=== PATIENT | female | born 1930 | race Caucasian/White ===

== ENCOUNTER 2017-05-29 21:13 | Inpatient (IN) | payer MEDICARE, OTHER, MEDICAID ==
[~2017-05-29] VITALS: Ht 152.4 cm; Wt 83.9 kg
[2017-05-29] MEDS ORDERED: Ipratropium 0.02% Inh Soln 2.5ml UD HHN ONE (21:15)
[2017-05-29] MEDS ORDERED: Albuterol ud Inhalation HHN ONE (21:15)
[2017-05-29] MEDS ORDERED: Morphine Sulfate 4mg/ml Inj IVP ONE (21:15)
[2017-05-29] MEDS ORDERED: ABILIFY2 MG ORAL (21:26)
[2017-05-29] MEDS ORDERED: AMLODIPINE BESY10 MG ORAL (21:26)
[2017-05-29] MEDS ORDERED: ASPIR 8181 MG ORAL (21:27)
[2017-05-29] MEDS ORDERED: BENZONATATE100 MG ORAL (21:27)
[2017-05-29] MEDS ORDERED: CYMBALTA60 MG ORAL (21:27)
--- NOTE | 2017-05-29 21:27 | Emergency Room Report ---
History of Present Illness General Chief Complaint: Upper Respiratory Illness Source: Patient, EMS Present Illness HPI Patient presents with chest pain and cough. Has had intermittent pain since [place]. She rates the pain at 10/10. Left-sided and pleuritic. The cough is fairly severe and she has shortness of breath with this. Cough not productive. No use of inhalers. Paramedics transported the patient. She had an Accu-Chek of [phone]. Also her EKG was sinus rhythm without any injury. Patient post cardiac stent. H/O diabetes. H/O HTN. Chronic edema of legs. Allergies: Coded Allergies: PENICILLINS (Verified Allergy, Unknown, 05/29/17) SULFA (SULFONAMIDE ANTIBIOTICS) (Verified Allergy, Unknown, 05/29/17) Patient History Limited by: medical condition Past Medical History: see triage record Past Surgical History: PTCA Social History Narrative [place] - assisted living Now: No Reviewed Nursing Documentation: PMH: Agreed, PSxH: Agreed Nursing Documentation-PMH Hx Cardiac Problems: Yes - Stent Hx Hypertension: Yes Hx Diabetes: Yes Review of Systems All Other Systems: limited Physical Exam Vital Signs Date Time Temp Pulse Resp B/P (MAP) Pulse Ox O2 Delivery O2 Flow Rate FiO2 05/29/17 21:07 98.1 82 16 190/72 97 Room Air Sp02 EP Interpretation: reviewed, normal General Appearance: well appearing, no apparent distress, GCS 15 Head: normocephalic Eyes: bilateral eye normal inspection, bilateral eye PERRL ENT: moist mucus membranes Neck: supple Respiratory: lungs clear, normal breath sounds, other - anterior chest wall pain Cardiovascular #1: regular rate, rhythm, edema - brawny Cardiovascular #2: 2+ radial (R) Gastrointestinal: normal inspection, normal bowel sounds, non tender, no mass, non-distended Musculoskeletal: back normal, gait/station normal, normal range of motion Neurologic: alert, oriented x3 Skin: normal inspection, warm/dry Medical Decision Making Diagnostic Impression: Primary Impression: ACS (acute coronary syndrome) Additional Impressions: Bronchitis Peripheral vascular disease ER Course Patient presents with pleuritic chest pain and cough. Differential includes acute myocardial infarction, acute coronary syndrome, pleurisy, pneumonia, bronchitis, pulmonary embolism amongst others. Evaluation will be with EKG, chest x-ray and labs. She is significant edema in her lower extremities and non invasive vascular studies will be performed. She'll be treated with albuterol and Atrovent. She also received some mild IV hydration. Based on x- ray antibiotics may be started. Also be treated with morphine for pain. EKG without injury. CXR increased domínguez with increase RLL. Labs with elevated BNP. WBC ULN. Breathing treatments with help. Antibiotics begun. Patient improved with treatment. However, due to high risk for CAD/ACS, patient admitted to telemetry, Dr. Bernal. Laboratory Tests Test 05/29/17 21:46 05/29/17 22:50 05/30/17 10:50 05/30/17 16:00 White Blood Count 10.1 K/UL (4.8-10.8) 9.8 K/UL (4.8-10.8) Red Blood Count 3.77 M/UL (4.20-5.40) L 3.48 M/UL (4.20-5.40) L Hemoglobin 11.4 G/DL (12.0-16.0) L 10.5 G/DL (12.0-16.0) L Hematocrit 34.7 % (37.0-47.0) L 32.1 % (37.0-47.0) L Mean Corpuscular Volume 92 FL (80-99) 92 FL (80-99) Mean Corpuscular Hemoglobin 30.4 PG (27.0-31.0) 30.3 PG (27.0-31.0) Mean Corpuscular Hemoglobin Concent 33.0 G/DL (32.0-36.0) 32.8 G/DL (32.0-36.0) Red Cell Distribution Width 13.6 % (11.6-14.8) 14.0 % (11.6-14.8) Platelet Count 272 K/UL (150-450) 232 K/UL (150-450) Mean Platelet Volume 7.3 FL (6.5-10.1) 6.9 FL (6.5-10.1) Neutrophils (%) (Auto) 55.7 % (45.0-75.0) 69.4 % (45.0-75.0) Lymphocytes (%) (Auto) 26.5 % (20.0-45.0) 14.7 % (20.0-45.0) L Monocytes (%) (Auto) 12.4 % (1.0-10.0) H 11.8 % (1.0-10.0) H Eosinophils (%) (Auto) 4.3 % (0.0-3.0) H 3.3 % (0.0-3.0) H Basophils (%) (Auto) 1.1 % (0.0-2.0) 0.8 % (0.0-2.0) Prothrombin Time 9.8 SEC (9.30-11.50) Prothrombin Time INR 0.9 (0.9-1.1) PTT 29 SEC (23-33) Sodium Level 139 MMOL/L (136-145) 138 MMOL/L (136-145) Potassium Level 3.7 MMOL/L (3.5-5.1) 3.6 MMOL/L (3.5-5.1) Chloride Level 103 MMOL/L (98-107) 103 MMOL/L (98-107) Carbon Dioxide Level 26 MMOL/L (21-32) 27 MMOL/L (21-32) Anion Gap 10 mmol/L (5-15) 8 mmol/L (5-15) Blood Urea Nitrogen 20 mg/dL (7-18) H 16 mg/dL (7-18) Creatinine 1.1 MG/DL (0.55-1.30) 0.9 MG/DL (0.55-1.30) Estimate Glomerular Filtration Rate mL/min (>60) mL/min (>60) Glucose Level 158 MG/DL (74-106) H 149 MG/DL (74-106) H Lactic Acid Level 1.60 mmol/L (0.66-2.22) Calcium Level 8.3 MG/DL (8.5-10.1) L 8.5 MG/DL (8.5-10.1) Total Bilirubin 0.3 MG/DL (0.2-1.0) Aspartate Amino Transferase (AST) 22 U/L (15-37) Alanine Aminotransferase (ALT) 24 U/L (12-78) Alkaline Phosphatase 89 U/L (46-116) Total Creatine Kinase 33 U/L (26-308) Troponin I 0.014 ng/mL (0.000-0.056) 0.044 ng/mL (0.000-0.056) Pro-B-Type Natriuretic Peptide 1685 pg/mL (0-125) H Total Protein 6.3 G/DL (6.4-8.2) L Albumin 3.0 G/DL (3.4-5.0) L Globulin 3.3 g/dL Albumin/Globulin Ratio 0.9 (1.0-2.7) L Urine Color Pale yellow Urine Appearance Clear Urine pH 6 (4.5-8.0) Urine Specific [place] 1.010 (1.005-1.035) Urine Protein 3+ (NEGATIVE) H Urine Glucose (UA) Negative (NEGATIVE) Urine Ketones Negative (NEGATIVE) Urine Occult Blood Negative (NEGATIVE) Urine Nitrite Negative (NEGATIVE) Urine Bilirubin Negative (NEGATIVE) Urine Urobilinogen Normal MG/DL (0.0-1.0) Urine Leukocyte Esterase Negative (NEGATIVE) Urine RBC 0-2 /HPF (0 - 2) Urine WBC 0-2 /HPF (0 - 2) Urine Squamous Epithelial Cells Few /LPF (NONE/OCC) Urine Bacteria None /HPF (NONE) Urine Random Creatinine Pending Urine Random Microalbumin Pending Urine Random Total Protein 56 MG/DL (< 11.9) H Urine Random Sodium 133 MEQ/L (20-110) H Urine Creatinine 46.1 MG/DL (30.0-125.0) Urine Microalbumin/Creatinine Ratio Pending Microbiology Date/Time Source Procedure Growth Status 05/29/17 21:46 Nasal Nares Influenza Types A,B Antigen (RUDDY) - Final Complete EKG Diagnostic Results Rate: normal Rhythm: NSR ST Segments: no acute changes Rhythm Strip Diag. Results EP Interpretation: yes Rhythm: NSR, no PVC's, no ectopy Chest X-Ray Diagnostic Results Chest X-Ray Diagnostic Results : Chest X-Ray Ordered: Yes # of Views/Limited/Complete: 1 View Indication: Chest Pain EP Interpretation: Yes Interpretation: no effusion, no pneumothorax, other - increased domínguez, possible RLL infiltrate Impression: Other Electronically Signed by: Minh Goodman MD Status: improved Disposition: ADMITTED INPATIENT Condition: Serious Minh Goodman M.D. May 29, 2017 21:27
[2017-05-29] MEDS ORDERED: FLUTICASONE PRO16 G1 NASAL (21:28)
[2017-05-29] MEDS ORDERED: LASIX20 M1 ORAL (21:29)
[2017-05-29] MEDS ORDERED: GABAPENTIN100 MG ORAL ×2 (21:30)
[2017-05-29] MEDS ORDERED: JANUVIA25 MG ORAL (21:31)
[2017-05-29] MEDS ORDERED: HYDRALAZINE HCL50 MG ORAL (21:31)
[2017-05-29] MEDS ORDERED: MELATONIN3 MG ORAL (21:32)
[2017-05-29] MEDS ORDERED: METOPROLOL SUCC25 MG ORAL (21:32)
[2017-05-29] MEDS ORDERED: MULTIVITAMINS1 EAC2 ORAL (21:32)
[2017-05-29] MEDS ORDERED: POTASSIUM CHLO20 ME2 ORAL (21:34)
[2017-05-29] MEDS ORDERED: PATANOL1 DROP OP (21:34)
[2017-05-29] MEDS ORDERED: PRIMIDONE250 MG ORAL (21:34)
[2017-05-29] MEDS ORDERED: CRESTOR40 MG ORAL (21:35)
[2017-05-29] MEDS ORDERED: ZANTAC150 MG ORAL (21:35)
[2017-05-29] MEDS ORDERED: MICARDIS40 MG ORAL (21:36)
[2017-05-29] MEDS ORDERED: TRAMADOL HCL50 MG ORAL (21:36)
[2017-05-29] MEDS ORDERED: VITAMIN D250000 UNI1 ORAL (21:37)
[2017-05-29] MEDS ORDERED: ZINC SULFATE220 M1 ORAL (21:38)
[2017-05-29] MEDS ORDERED: VITAMIN C500 M1 ORAL (21:38)
[2017-05-29] MEDS ORDERED: DOC-Q-LACE100 M1 ORAL (21:39)
[2017-05-29] MEDS ORDERED: HYDROXYZINE HCL50 M1 PO (21:40)
[2017-05-29] MEDS ORDERED: MAPAP325 M1 PO (21:40)
[2017-05-29] MEDS ORDERED: [UNRECOGNIZED DRUG - OTHER] IR (21:41)
[2017-05-29] MEDS ORDERED: ZOLPIDEM TARTRAT5 MG ORAL (21:42)
[2017-05-29] MEDS ORDERED: OXYCODONE-ACET1 EAC3 ORAL (21:42)
[2017-05-29] MEDS ORDERED: Cefepime HCl 1 GM in D5W 55 ML IVPB ONE (22:00)
[2017-05-29] MEDS ORDERED: Cefepime 1gm vial ONE (22:03)
[2017-05-29 22:57] LABS: BASOPHILS % (AUTO) 1.1 % (0.0-2.0); EOSINOPHILS % (AUTO) 4.3 % (0.0-3.0); HEMATOCRIT 34.7 % (37.0-47.0); HEMOGLOBIN 11.4 G/DL (12.0-16.0); LYMPHOCYTES % (AUTO) 26.5 % (20.0-45.0); MEAN CORPUSCULAR VOLUME 92 FL (80-99); MONOCYTES % (AUTO) 12.4 % (1.0-10.0); NEUTROPHILS % (AUTO) 55.7 % (45.0-75.0); PLATELET COUNT 272 K/UL (150-450); RED BLOOD COUNT 3.77 M/UL (4.20-5.40); RED CELL DISTRIBUTION WIDTH 13.6 % (11.6-14.8); WHITE BLOOD COUNT 10.1 K/UL (4.8-10.8)
[2017-05-29 23:03] LABS: ANION GAP 10 mmol/L (5-15); BLOOD UREA NITROGEN 20 mg/dL (7-18); CALCIUM 8.3 MG/DL (8.5-10.1); CARBON DIOXIDE 26 MMOL/L (21-32); CHLORIDE 103 MMOL/L (98-107); CREATININE 1.1 MG/DL (0.55-1.30); POTASSIUM 3.7 MMOL/L (3.5-5.1); SODIUM 139 MMOL/L (136-145)
[2017-05-29 23:04] LABS: INR 0.9 (0.9-1.1)
[2017-05-29 23:14] LABS: APPEARANCE,URINE CLEAR; BILIRUBIN, URINE NEGATIVE (NEGATIVE); COLOR,URINE PALE YELLOW; GLUCOSE, URINE (UA) NEGATIVE (NEGATIVE); KETONES,URINE NEGATIVE (NEGATIVE); LEUKOCYTE ESTERASE ,URINE NEGATIVE (NEGATIVE); NITRITE,URINE NEGATIVE (NEGATIVE); PH,URINE 6 (4.5-8.0); PROTEIN,URINE 3+ (NEGATIVE); UROBILINOGEN,URINE NORMAL MG/DL (0.0-1.0)
[2017-05-29 23:16] LABS: ALANINE AMINOTRANSFERASE 24 U/L (12-78); ALBUMIN/GLOBULIN RATIO 0.9 (1.0-2.7); ALKALINE PHOSPHATASE 89 U/L (46-116); ASPARTATE AMINO TRANSFERASE 22 U/L (15-37); BILIRUBIN,TOTAL 0.3 MG/DL (0.2-1.0); CREATINE KINASE 33 U/L (26-308)
[2017-05-29 23:32] VITALS: BP 142/89
[2017-05-30] VITALS: BP 169/65
[2017-05-30] MEDS ORDERED: oxyCODONE HCL/Acetaminophen 5/325mg ORAL PRN ×2 (02:30→06:45)
[2017-05-30] MEDS ORDERED: Zolpidem 5mg tab ORAL PRN (02:30)
[2017-05-30] MEDS ORDERED: traMADol 50mg tab ORAL PRN (02:30)
[2017-05-30 04:00] VITALS: BP 162/61
[2017-05-30] MEDS: HydrALAZINE 50mg tab ORAL SCH ×3 (06:48→22:39)
[2017-05-30 08:00] VITALS: BP 152/73
[2017-05-30] MEDS: Heparin 5000 units/ml inj SUBQ SCH ×2 (08:39→22:42)
[2017-05-30] MEDS: Zinc Sulfate 220mg cap ORAL SCH (08:40)
[2017-05-30] MEDS: Benzonatate 100mg Perles ORAL SCH ×3 (08:40→17:24)
[2017-05-30] MEDS: Aspirin EC 81mg tab ORAL SCH (08:40)
[2017-05-30] MEDS: Ascorbic Acid 500mg tab ORAL SCH (08:41)
[2017-05-30] MEDS: sitaGLIPtin 25mg tab ORAL SCH (08:42)
[2017-05-30] MEDS: ARIPiprazole 2mg tab ORAL SCH (08:42)
[2017-05-30] MEDS: DULoxetine 30mg cap ORAL SCH (08:44)
[2017-05-30] MEDS: Docusate 100mg cap ORAL SCH ×2 (08:45→17:24)
[2017-05-30] MEDS: Primidone 250mg tab ORAL SCH ×3 (08:45→17:24)
[2017-05-30] MEDS ORDERED: Metoprolol Succinate XL 25mg tab ORAL SCH (09:00)
[2017-05-30] MEDS: Flonase Nasal Inhaler 16gm NASAL SCH (09:51)
--- NOTE | 2017-05-30 10:38 | Diagnostic Imaging Report ---
Indication: Cough Comparison: None A single view chest radiograph was obtained. Findings: There may be mild interstitial edema/vascular congestion. Please correlate clinically The heart is enlarged. The aorta is mildly enlarged consistent with atherosclerotic vascular disease. The bones are osteopenic. Impression: Probable mild interstitial edema. Please correlate clinically
--- NOTE | 2017-05-30 11:45 | Consultation ---
History of Present Illness General Date patient seen: May 30, 2017 Chief Complaint: Upper Respiratory Illness Present Illness HPI 86 year old female with hx of HTN, DM, morbid obesity, living in an assisted living presented with CC of chest pain and cough. She also had chest pain She rates the pain at 10/10. Left-sided and pleuritic. The cough is fairly severe and she has shortness of breath as well. She doesn't recall having flu- like symptoms. She thinks she has been sick for a few weeks. Her initial cxr showed mild pulmonary edema. she is admitted to telemetry for further evaluation. Allergies: Coded Allergies: PENICILLINS (Verified Allergy, Unknown, 05/29/17) SULFA (SULFONAMIDE ANTIBIOTICS) (Verified Allergy, Unknown, 05/29/17) Medication History Scheduled Amlodipine Besylate* (Amlodipine Besylate*), 10 MG ORAL DAILY, (Reported) Aripiprazole* (Abilify*), 2 MG ORAL DAILY, (Reported) Ascorbic Acid* (Vitamin C*), 500 MG ORAL DAILY, (Reported) Aspirin* (Aspir 81*), 81 MG ORAL DAILY, (Reported) Benzonatate* (Benzonatate*), 100 MG ORAL THREE TIMES A DAY, (Reported) Docusate Sodium (Doc-Q-Lace), 100 MG ORAL BID, (Reported) Duloxetine Hcl* (Cymbalta*), 60 MG ORAL DAILY, (Reported) Ergocalciferol (Vitamin D2)* (Vitamin D*), 50,000 UNIT ORAL ONCE A WEEK, ( Reported) Fluticasone Propionate* (Fluticasone Propionate*), 1 SPRAY NASAL DAILY, ( Reported) Furosemide* (Lasix*), 20 MG ORAL TWICE A DAY, (Reported) Gabapentin* (Gabapentin*), 100 MG ORAL DAILY, (Reported) Gabapentin* (Gabapentin*), 200 MG ORAL BEDTIME, (Reported) Hydralazine Hcl* (Hydralazine Hcl*), 50 MG ORAL EVERY 8 HOURS, (Reported) Metoprolol Succinate* (Metoprolol Succinate*), 25 MG ORAL DAILY, (Reported) Multivitamins* (Multivitamins*), 1 TAB ORAL DAILY, (Reported) Potassium Chloride (Potassium Chloride), 20 MEQ ORAL DAILY, (Reported) Primidone* (Mysoline*), 250 MG ORAL THREE TIMES A DAY, (Reported) Ranitidine Hcl* (Zantac*), 150 MG ORAL DAILY, (Reported) Rosuvastatin Calcium* (Crestor*), 40 MG ORAL DAILY, (Reported) Sitagliptin* (Januvia*), 50 MG ORAL DAILY, (Reported) Telmisartan (Micardis), 40 MG ORAL DAILY, (Reported) Zinc Sulfate (Zinc Sulfate*), 220 MG ORAL DAILY, (Reported) Scheduled PRN Melatonin (Melatonin), 3 MG ORAL BEDTIME PRN for Insomnia, (Reported) Oxycodone Hcl/Acetaminophen 5-325* (Oxycodone-Acetaminophen 5-325*), 1 TAB ORAL BID PRN for For Pain, (Reported) Tramadol Hcl* (Ultram*), 50 MG ORAL Q6H PRN for For Pain, (Reported) Zolpidem Tartrate* (Zolpidem Tartrate*), 5 MG ORAL BEDTIME PRN for Insomnia, ( Reported) Miscellaneous Medications Acetaminophen (Mapap), 325 MG PO, (Reported) Hydroxyzine Hcl (Hydroxyzine Hcl), 50 MG PO, (Reported) Neomy Sulf/Polymyxin B Sulfate (Neomy-Polymyxin B 40 Mg/Ml Amp), 1 ML IR, ( Reported) Olopatadine (Patanol), 1 DROP OP, (Reported) Patient History Healthcare decision maker Resuscitation status Advanced Directive on File No Past Medical/Surgical History Past Medical/Surgical History: (1) HTN (hypertension) (2) Diabetes mellitus (3) Obesity (BMI 30-39.9) Review of Systems Respiratory: Reports: shortness of breath, wheezing All Other Systems: negative except mentioned in HPI Physical Exam General Appearance: morbidly obese Lines, tubes and drains: peripheral HEENT: normocephalic, atraumatic Neck: non-tender, normal alignment Respiratory/Chest: chest wall non-tender, rhonchi - left, rhonchi - right Breasts: no masses Cardiovascular/Chest: regular rhythm Abdomen: normal bowel sounds, non tender, hyperactive bowel sounds Extremities: normal range of motion Skin Exam: normal pigmentation Last 24 Hour Vital Signs Date Time Temp Pulse Resp B/P (MAP) Pulse Ox O2 Delivery O2 Flow Rate FiO2 05/30/17 08:44 78 180/61 05/30/17 08:43 180/61 05/30/17 08:41 78 180/61 05/30/17 06:48 162/61 05/30/17 04:00 98.1 66 20 162/61 95 Room Air 05/30/17 04:00 73 05/30/17 00:00 97.0 67 20 169/65 96 Room Air 05/30/17 00:00 74 05/29/17 23:38 98.1 88 20 142/89 99 Room Air 21 05/29/17 23:32 98.1 88 20 142/89 99 Room Air 21 05/29/17 22:01 68 20 99 Room Air 21 05/29/17 21:42 78 18 94 Room Air 21 05/29/17 21:42 78 18 Room Air 21 05/29/17 21:42 21 05/29/17 21:41 82 16 Room Air 05/29/17 21:07 98.1 82 16 190/72 97 Room Air Intake and Output 05/29/17 05/30/17 19:00 07:00 Output Total 3 ml Balance -3 ml Output Urine Total 3 ml # Bowel Movements 1 Laboratory Tests Test 05/29/17 21:46 05/29/17 22:50 White Blood Count 10.1 K/UL (4.8-10.8) Red Blood Count 3.77 M/UL (4.20-5.40) L Hemoglobin 11.4 G/DL (12.0-16.0) L Hematocrit 34.7 % (37.0-47.0) L Mean Corpuscular Volume 92 FL (80-99) Mean Corpuscular Hemoglobin 30.4 PG (27.0-31.0) Mean Corpuscular Hemoglobin Concent 33.0 G/DL (32.0-36.0) Red Cell Distribution Width 13.6 % (11.6-14.8) Platelet Count 272 K/UL (150-450) Mean Platelet Volume 7.3 FL (6.5-10.1) Neutrophils (%) (Auto) 55.7 % (45.0-75.0) Lymphocytes (%) (Auto) 26.5 % (20.0-45.0) Monocytes (%) (Auto) 12.4 % (1.0-10.0) H Eosinophils (%) (Auto) 4.3 % (0.0-3.0) H Basophils (%) (Auto) 1.1 % (0.0-2.0) Prothrombin Time 9.8 SEC (9.30-11.50) Prothromb Time International Ratio 0.9 (0.9-1.1) Activated Partial Thromboplast Time 29 SEC (23-33) Sodium Level 139 MMOL/L (136-145) Potassium Level 3.7 MMOL/L (3.5-5.1) Chloride Level 103 MMOL/L (98-107) Carbon Dioxide Level 26 MMOL/L (21-32) Anion Gap 10 mmol/L (5-15) Blood Urea Nitrogen 20 mg/dL (7-18) H Creatinine 1.1 MG/DL (0.55-1.30) Estimat Glomerular Filtration Rate mL/min (>60) Glucose Level 158 MG/DL (74-106) H Lactic Acid Level 1.60 mmol/L (0.66-2.22) Calcium Level 8.3 MG/DL (8.5-10.1) L Total Bilirubin 0.3 MG/DL (0.2-1.0) Aspartate Amino Transf (AST/SGOT) 22 U/L (15-37) Alanine Aminotransferase (ALT/SGPT) 24 U/L (12-78) Alkaline Phosphatase 89 U/L (46-116) Total Creatine Kinase 33 U/L (26-308) Troponin I 0.014 ng/mL (0.000-0.056) Pro-B-Type Natriuretic Peptide 1685 pg/mL (0-125) H Total Protein 6.3 G/DL (6.4-8.2) L Albumin 3.0 G/DL (3.4-5.0) L Globulin 3.3 g/dL Albumin/Globulin Ratio 0.9 (1.0-2.7) L Urine Color Pale yellow Urine Appearance Clear Urine pH 6 (4.5-8.0) Urine Specific [place] 1.010 (1.005-1.035) Urine Protein 3+ (NEGATIVE) H Urine Glucose (UA) Negative (NEGATIVE) Urine Ketones Negative (NEGATIVE) Urine Occult Blood Negative (NEGATIVE) Urine Nitrite Negative (NEGATIVE) Urine Bilirubin Negative (NEGATIVE) Urine Urobilinogen Normal MG/DL (0.0-1.0) Urine Leukocyte Esterase Negative (NEGATIVE) Urine RBC 0-2 /HPF (0 - 2) Urine WBC 0-2 /HPF (0 - 2) Urine Squamous Epithelial Cells Few /LPF (NONE/OCC) Urine Bacteria None /HPF (NONE) Microbiology Date/Time Source Procedure Growth Status 05/29/17 21:46 Nasal Nares Influenza Types A,B Antigen (RUDDY) - Final Complete Height (Feet): 5 Height (Inches): 0.00 Weight (Pounds): 185 Medications Current Medications Medications (Trade) Dose Ordered Sig/Adam Route PRN Reason Start Time Stop Time Status Last Admin Dose Admin Acetaminophen (Tylenol) 325 mg Q4HR PRN ORAL Fever/Headache/Mild Pain 05/30/17 02:30 06/29/17 02:29 Amlodipine Besylate (Norvasc) 10 mg DAILY ORAL 05/30/17 09:00 06/29/17 08:59 05/30/17 08:44 Aripiprazole (Abilify) 2 mg DAILY ORAL 05/30/17 09:00 06/29/17 08:59 05/30/17 08:42 Ascorbic Acid (Vitamin C) 500 mg DAILY ORAL 05/30/17 09:00 06/29/17 08:59 05/30/17 08:41 Aspirin (Ecotrin) 81 mg DAILY ORAL 05/30/17 09:00 06/29/17 08:59 05/30/17 08:40 Benzonatate (Tessalon Perles) 100 mg THREE TIMES A DAY ORAL 05/30/17 09:00 06/29/17 08:59 05/30/17 08:40 Docusate Sodium (Colace) 100 mg BID ORAL 05/30/17 09:00 06/29/17 08:59 05/30/17 08:45 Duloxetine HCl (Cymbalta) 60 mg DAILY ORAL 05/30/17 09:00 06/29/17 08:59 05/30/17 08:44 Ergocalciferol (Drisdol) 1.25 intlu ONCE A WEEK ORAL 05/30/17 02:30 06/29/17 02:29 UNV Fluticasone Propionate (Flonase) 1 spray DAILY NASAL 05/30/17 09:00 06/29/17 08:59 05/30/17 09:51 Furosemide (Lasix) 20 mg TWICE A DAY ORAL 05/30/17 09:00 06/29/17 08:59 05/30/17 08:41 Gabapentin (Neurontin) 100 mg DAILY ORAL 05/30/17 09:00 06/29/17 08:59 05/30/17 08:41 Gabapentin (Neurontin) 200 mg BEDTIME ORAL 05/30/17 21:00 06/29/17 20:59 Heparin Sodium (Porcine) (Heparin 5000 units/ml) 5,000 units EVERY 12 HOURS SUBQ 05/30/17 09:00 06/29/17 08:59 05/30/17 08:39 Hydralazine HCl (Apresoline) 50 mg EVERY 8 HOURS ORAL 05/30/17 06:00 06/29/17 05:59 05/30/17 08:43 Metoprolol Succinate (Toprol XL) 25 mg DAILY ORAL 05/30/17 09:00 06/29/17 08:59 05/30/17 08:41 Multivitamins (Multivitamins) 1 tab DAILY ORAL 05/30/17 09:00 06/29/17 08:59 05/30/17 08:43 Oxycodone/ Acetaminophen (Percocet 5-325) 1 tab BID PRN ORAL For Pain 05/30/17 06:45 06/06/17 06:44 Primidone (Mysoline) 250 mg THREE TIMES A DAY ORAL 05/30/17 09:00 06/29/17 08:59 05/30/17 08:45 Sitagliptin Phosphate (Januvia) 50 mg DAILY ORAL 05/30/17 09:00 06/29/17 08:59 05/30/17 08:42 Tramadol HCl (Ultram) 50 mg Q6H PRN ORAL For Pain 05/30/17 08:30 06/06/17 08:29 Zinc Sulfate (Zinc Sulfate) 220 mg DAILY ORAL 05/30/17 09:00 06/29/17 08:59 05/30/17 08:40 Zolpidem Tartrate (Ambien) 5 mg BEDTIME PRN ORAL Insomnia 05/30/17 02:30 06/06/17 02:29 Assessment/Plan Problem List: (1) ACS (acute coronary syndrome) ICD Codes: I24.9 - Acute ischemic heart disease, unspecified SNOMED: 045657704 (2) Bronchitis ICD Codes: J40 - Bronchitis, not specified as acute or chronic SNOMED: 41992269 (3) HTN (hypertension) ICD Codes: I10 - Essential (primary) hypertension SNOMED: 84430724 (4) Obesity (BMI 30-39.9) ICD Codes: E66.9 - Obesity, unspecified SNOMED: 523283982, 130378866 (5) At high risk for aspiration ICD Codes: Z91.89 - Other specified personal risk factors, not elsewhere classified SNOMED: 664564509 (6) Diabetes mellitus ICD Codes: E11.9 - Type 2 diabetes mellitus without complications SNOMED: 72483346 Assessment/Plan respiratory treatment IV abx check electrolytes check echo venous doppler of legs aspiration evaluation. FERNANDA MANNING May 30, 2017 11:45
[2017-05-30 11:49] LABS: BASOPHILS % (AUTO) 0.8 % (0.0-2.0); EOSINOPHILS % (AUTO) 3.3 % (0.0-3.0); HEMATOCRIT 32.1 % (37.0-47.0); HEMOGLOBIN 10.5 G/DL (12.0-16.0); LYMPHOCYTES % (AUTO) 14.7 % (20.0-45.0); MEAN CORPUSCULAR VOLUME 92 FL (80-99); MONOCYTES % (AUTO) 11.8 % (1.0-10.0); NEUTROPHILS % (AUTO) 69.4 % (45.0-75.0); PLATELET COUNT 232 K/UL (150-450); RED BLOOD COUNT 3.48 M/UL (4.20-5.40); WHITE BLOOD COUNT 9.8 K/UL (4.8-10.8)
[2017-05-30 12:00] VITALS: BP 160/95
[2017-05-30 12:06] LABS: ANION GAP 8 mmol/L (5-15); BLOOD UREA NITROGEN 16 mg/dL (7-18); CALCIUM 8.5 MG/DL (8.5-10.1); CARBON DIOXIDE 27 MMOL/L (21-32); CHLORIDE 103 MMOL/L (98-107); CREATININE 0.9 MG/DL (0.55-1.30); POTASSIUM 3.6 MMOL/L (3.5-5.1); SODIUM 138 MMOL/L (136-145)
--- NOTE | 2017-05-30 14:01 | Cardiology Progress Note ---
Assessment/Plan Assessment/Plan The patient is seen and examined, full consult note is dictated. Objective Last 24 Hour Vital Signs Date Time Temp Pulse Resp B/P (MAP) Pulse Ox O2 Delivery O2 Flow Rate FiO2 05/30/17 12:00 98.1 75 20 160/95 99 Room Air 05/30/17 08:44 78 180/61 05/30/17 08:43 180/61 05/30/17 08:41 78 180/61 05/30/17 08:00 98.1 74 19 152/73 98 Room Air 05/30/17 06:48 162/61 05/30/17 04:00 98.1 66 20 162/61 95 Room Air 05/30/17 04:00 73 05/30/17 00:00 97.0 67 20 169/65 96 Room Air 05/30/17 00:00 74 05/29/17 23:38 98.1 88 20 142/89 99 Room Air 21 05/29/17 23:32 98.1 88 20 142/89 99 Room Air 21 05/29/17 22:01 68 20 99 Room Air 21 05/29/17 21:42 78 18 94 Room Air 21 05/29/17 21:42 78 18 Room Air 21 05/29/17 21:42 21 05/29/17 21:41 82 16 Room Air 05/29/17 21:07 98.1 82 16 190/72 97 Room Air Intake and Output 05/29/17 05/30/17 19:00 07:00 Output Total 3 ml Balance -3 ml Output Urine Total 3 ml # Bowel Movements 1 Laboratory Tests Test 05/29/17 21:46 05/29/17 22:50 05/30/17 10:50 White Blood Count 10.1 K/UL (4.8-10.8) 9.8 K/UL (4.8-10.8) Red Blood Count 3.77 M/UL (4.20-5.40) L 3.48 M/UL (4.20-5.40) L Hemoglobin 11.4 G/DL (12.0-16.0) L 10.5 G/DL (12.0-16.0) L Hematocrit 34.7 % (37.0-47.0) L 32.1 % (37.0-47.0) L Mean Corpuscular Volume 92 FL (80-99) 92 FL (80-99) Mean Corpuscular Hemoglobin 30.4 PG (27.0-31.0) 30.3 PG (27.0-31.0) Mean Corpuscular Hemoglobin Concent 33.0 G/DL (32.0-36.0) 32.8 G/DL (32.0-36.0) Red Cell Distribution Width 13.6 % (11.6-14.8) 14.0 % (11.6-14.8) Platelet Count 272 K/UL (150-450) 232 K/UL (150-450) Mean Platelet Volume 7.3 FL (6.5-10.1) 6.9 FL (6.5-10.1) Neutrophils (%) (Auto) 55.7 % (45.0-75.0) 69.4 % (45.0-75.0) Lymphocytes (%) (Auto) 26.5 % (20.0-45.0) 14.7 % (20.0-45.0) L Monocytes (%) (Auto) 12.4 % (1.0-10.0) H 11.8 % (1.0-10.0) H Eosinophils (%) (Auto) 4.3 % (0.0-3.0) H 3.3 % (0.0-3.0) H Basophils (%) (Auto) 1.1 % (0.0-2.0) 0.8 % (0.0-2.0) Prothrombin Time 9.8 SEC (9.30-11.50) Prothromb Time International Ratio 0.9 (0.9-1.1) Activated Partial Thromboplast Time 29 SEC (23-33) Sodium Level 139 MMOL/L (136-145) 138 MMOL/L (136-145) Potassium Level 3.7 MMOL/L (3.5-5.1) 3.6 MMOL/L (3.5-5.1) Chloride Level 103 MMOL/L (98-107) 103 MMOL/L (98-107) Carbon Dioxide Level 26 MMOL/L (21-32) 27 MMOL/L (21-32) Anion Gap 10 mmol/L (5-15) 8 mmol/L (5-15) Blood Urea Nitrogen 20 mg/dL (7-18) H 16 mg/dL (7-18) Creatinine 1.1 MG/DL (0.55-1.30) 0.9 MG/DL (0.55-1.30) Estimat Glomerular Filtration Rate mL/min (>60) mL/min (>60) Glucose Level 158 MG/DL (74-106) H 149 MG/DL (74-106) H Lactic Acid Level 1.60 mmol/L (0.66-2.22) Calcium Level 8.3 MG/DL (8.5-10.1) L 8.5 MG/DL (8.5-10.1) Total Bilirubin 0.3 MG/DL (0.2-1.0) Aspartate Amino Transf (AST/SGOT) 22 U/L (15-37) Alanine Aminotransferase (ALT/SGPT) 24 U/L (12-78) Alkaline Phosphatase 89 U/L (46-116) Total Creatine Kinase 33 U/L (26-308) Troponin I 0.014 ng/mL (0.000-0.056) Pro-B-Type Natriuretic Peptide 1685 pg/mL (0-125) H Total Protein 6.3 G/DL (6.4-8.2) L Albumin 3.0 G/DL (3.4-5.0) L Globulin 3.3 g/dL Albumin/Globulin Ratio 0.9 (1.0-2.7) L Urine Color Pale yellow Urine Appearance Clear Urine pH 6 (4.5-8.0) Urine Specific [place] 1.010 (1.005-1.035) Urine Protein 3+ (NEGATIVE) H Urine Glucose (UA) Negative (NEGATIVE) Urine Ketones Negative (NEGATIVE) Urine Occult Blood Negative (NEGATIVE) Urine Nitrite Negative (NEGATIVE) Urine Bilirubin Negative (NEGATIVE) Urine Urobilinogen Normal MG/DL (0.0-1.0) Urine Leukocyte Esterase Negative (NEGATIVE) Urine RBC 0-2 /HPF (0 - 2) Urine WBC 0-2 /HPF (0 - 2) Urine Squamous Epithelial Cells Few /LPF (NONE/OCC) Urine Bacteria None /HPF (NONE) Microbiology Date/Time Source Procedure Growth Status 05/29/17 21:46 Nasal Nares Influenza Types A,B Antigen (RUDDY) - Final Complete LEANN DAVIS May 30, 2017 14:01
--- NOTE | 2017-05-30 15:04 | General Progress Note ---
Progress Note Progress Note pt seen and examined full consult will be dictated MARLEE FINLEY May 30, 2017 15:04
[2017-05-30 16:00] VITALS: BP 158/83
[2017-05-30] MEDS: Vancomycin 1250mg/D5W 250ml 250 ML IVPB SCH (17:23)
--- NOTE | 2017-05-30 17:32 | Consultation ---
Consult Note Assessment/Plan Podiatry Consult dictated A/ 1) Left ankle pain 2) Venous insufficiency with venous stasis changes 3) DM 4) Obesity P/ 1) Venous ultz reviewed 2) Will order arterial ultz and left ankle x-ray 3) No wound care indicated at this time 4) Will follow Thank you Anirudh Fitch DPM May 30, 2017 17:32
--- NOTE | 2017-05-30 19:21 | Cardiology Report ---
APPROVED REPORT EXAM: Two-dimensional and M-mode echocardiogram with Doppler and color Doppler. INDICATION Left ventricular function M-Mode DIMENSIONS IVSd1.0 (0.7-1.1cm)Left Atrium (MM)5.3 (1.6-4.0cm) LVDd5.1 (3.5-5.6cm)Aortic Root2.7 (2.0-3.7cm) PWd1.0 (0.7-1.1cm)Aortic Cusp Exc.1.1 (1.5-2.0cm) LVDs2.5 (2.5-4.0cm) PWs1.3 cm Technically difficult study due to poor acoustical windows. Normal left ventricular chamber size, systolic function and wall motion. Left ventricular ejection fraction estimated to be 70-75%. No evidence of left ventricular hypertrophy. No evidence of pericardial or pleural effusion. Right cardiac chamber sizes are within normal limits. Moderate left atrial enlargement by 2D. Aortic valve calcification with decreased cusp excursion. Thickened mitral valve leaflets with normal excursion. Mild mitral annulus and aortic root calcification. Pulmonic valve not well visualized. Normal tricuspid valve structure. IVC is normal in size and collapsible with respiration. A color flow and spectral Doppler study was performed and revealed: Mild aortic regurgitation. Peak aortic valve gradient of 53mmHg and a mean of 27 mmHg. Aortic valve area 1.2 cm2 calculated by continuity equation, c/w moderate aortic stenosis. Trace mitral regurgitation. Mitral diastolic velocities suggestpseudo-normal LV physiology c/w diastolic dysfunction grade II. Trace tricuspid regurgitation. Tricuspid systolic velocities suggests peak right ventricular systolic pressure of 31 mmHg Pulmonic regurgitation present.
--- NOTE | 2017-05-30 19:30 | History and Physical Report ---
DATE OF ADMISSION: 05/30/2017 TIME: 1 p.m. CONSULTANTS: 1. Annalise De León M.D. 2. Dr. Caruso. 3. Anirudh Lal D.P.M. CHIEF COMPLAINT: Shortness of breath, coughing for two months, pneumonia, and sepsis. BRIEF HISTORY: The patient is an 86-year-old female from [facility], presented to [facility] with history of two months increased coughing and shortness of breath, was actually better a week ago, but then got worse again. The patient last night came to [facility], diagnosed with pneumonia, sepsis, lower extremity edema, and cellulitis, and admitted to [facility] for further care. Currently, slightly confused in bed, slightly anxious. No complaints. PAST MEDICAL HISTORY: Diabetes, hypertension, obesity, and lower extremity edema. PAST SURGICAL HISTORY: Cardiac stent. MEDICATIONS: Include Drisdol, Neurontin, Norvasc, Abilify, Ecotrin, Tessalon Perles, Colace, Cymbalta, Flonase, Neurontin, Toprol, multivitamin, Januvia, heparin, Percocet, and Tylenol. ALLERGIES: Sulfa and penicillin. SOCIAL HISTORY: No smoking. No alcohol. No intravenous drug abuse. FAMILY HISTORY: Noncontributory. REVIEW OF SYSTEMS: No chest pain. Slightly short of breath. No nausea, vomiting, or diarrhea. PHYSICAL EXAMINATION: GENERAL: Slightly anxious, slightly confused in bed, oriented x2, and in no acute distress. VITAL SIGNS: Temperature is 95, pulse 75, respirations 20, and blood pressure 160/95. CARDIOVASCULAR: No murmur. LUNGS: Poor air exchange with bilateral wheeze noted. ABDOMEN: Bowel sounds positive. Nontender. Nondistended. EXTREMITIES: No cyanosis or clubbing. A 1+ edema. Mid ochoa and below with slight redness and dry rash noted. NEUROLOGIC: The patient moves all extremities. Slightly weak. LABORATORY AND DIAGNOSTIC DATA: Hemoglobin 10.5, otherwise CBC is normal. BMP shows glucose 149, otherwise BMP is normal. INR is 0.9. PTT is 29. Urinalysis showed 3+ protein. ASSESSMENT: Pneumonia, sepsis, cough, diabetes, hypertension, obesity, lower extremity edema, cellulitis, and anemia. PLAN: 1. O2 and pulmonary treatment. 2. Antibiotics per Infectious Disease. 3. Blood pressure and blood sugar control. 4. Wound care. 5. Resume home medications. 6. OT, PT, and dietary evaluation. 7. CBC and BMP in the morning. 8. Dr. De León, Dr. Caruso, Dr. Lal, Dr. Tyler, and Dr. Evans to consult. 9. We will continue to follow this patient. Benjie Bernal D.O. DR: GENEVA JOB#: [id number] CC:
--- NOTE | 2017-05-30 21:30 | Consultation ---
DATE OF CONSULTATION: 05/30/2017 INFECTIOUS DISEASE CONSULTATION CONSULTING PHYSICIAN: Adam Burger M.D. PRIMARY ATTENDING PHYSICIAN: Benjie Bernal D.O. REASON FOR CONSULT: Leg cellulitis, bronchitis, and pneumonia. HISTORY OF PRESENT ILLNESS: The patient is an 86-year-old female who is a resident of assisted living facility, admitted last night with productive cough, chest pain, and shortness of breath. The patient is hard of hearing. Daughter is in room and states that the patient had pneumonia recently, was treated with antibiotics around two weeks ago, had some improvement in symptoms and again developed productive cough. Also, complains of leg pain and tenderness. PAST MEDICAL HISTORY: Significant for diabetes mellitus, hypertension. The patient has coronary artery disease, status post stenting, had history of skin graft, and has history of obesity. MEDICATIONS: Ergocalciferol, gabapentin, amlodipine, Abilify, vitamin C, Tessalon, Colace, Cymbalta, Flonase, Lasix, Ambien, Tylenol, hydralazine, Percocet, Ultram, heparin, zinc, Januvia, primidone, and multivitamin. ALLERGIES: Allergic to penicillin and sulfa drugs. CODE STATUS: Do Not Resuscitation, Do Not Intubate. SOCIAL HISTORY: Assisted living resident. History of alcohol, drug abuse, and smoking. There is no documented history of flu and pneumonia vaccine in the four years that the [facility] is in the [facility]. REVIEW OF SYSTEMS: She has productive cough. No fever. No runny nose. No nausea. No vomiting. PHYSICAL EXAMINATION: GENERAL APPEARANCE: Well developed. VITAL SIGNS: Temperature 98.1 degrees, pulse 75, and blood pressure 160/95. HEAD AND NECK: [place] conjunctiva. HEART: Normal rate. LUNGS: Clear. ABDOMEN: Soft. EXTREMITY: She has edema, erythema, and tenderness in both ochoa areas. No open wound. LABORATORY AND DIAGNOSTIC DATA: Chest x-ray showed mild interstitial edema. Sodium 138, potassium 3.6, chloride 103, bicarbonate 27, BUN 16, creatinine 0.9, and glucose is 149. WBC 9.8, hemoglobin 10.5, hematocrit 32.1, and platelets is 232. There was a test for flu A and B that was negative. IMPRESSION: Bilateral leg cellulitis, bronchitis versus early pneumonia. She has diabetes mellitus, hypertension, penicillin allergy, and anemia. RECOMMENDATIONS: We will start the patient on Levaquin and vancomycin. We will follow up the cultures. We will order a sputum culture. At the end of my exam, I thank, Dr. Benjie Bernal, for involving me in the care of this patient. Adam Burger M.D. DR: ANNMARIE JOB#: [id number] CC: KYLE
--- NOTE | 2017-05-30 21:45 | Consultation ---
DATE OF CONSULTATION: 05/30/2017 CARDIOLOGY CONSULTATION CONSULTING PHYSICIAN: Willie Tyler M.D. REFERRING PHYSICIAN: Benjie Bernal D.O. REASON FOR CONSULTATION: Management of chest pain. HISTORY OF PRESENT ILLNESS: The patient is a very pleasant 86-year-old lady, who presents to the hospital with complaints of productive cough of yellowish sputum as well as pleuritic chest pain. The patient states that the chest pain is at midsternal, worse when she coughs. She has been coughing severely in the course of the past few days. Cough is also associated with shortness of breath. At the time of arrival to the hospital, a 12-lead electrocardiogram showed multifocal atrial rhythm with no ST and T-wave abnormalities. However, her blood pressure was 190/72 mmHg with pulse rate of 82. She was saturating at 97% on room air. PAST MEDICAL HISTORY: 1. History of coronary artery disease, status post PCI. 2. History of PAD with non-healed wound in the lower extremities. 3. History of hyperlipidemia. 4. History of diabetes mellitus. 5. History of hypertension. 6. History of multiple falls with frequent admissions to [facility]. MEDICATIONS: List of medications include acetaminophen 325 mg p.o. q.6 h. p.r.n. pain, amlodipine 10 mg p.o. daily, Abilify 2 mg p.o. daily, vitamin C 500 mg p.o. daily, aspirin 81 mg p.o. daily, benzonatate 100 mg three times a day, Colace 100 mg twice daily, Cymbalta 60 mg p.o. daily, vitamin D 50,000 units p.o. once a week to six weeks, fluticasone spray one spray nasal daily, Lasix 20 mg p.o. twice daily, gabapentin 100 mg p.o. daily and 200 mg nightly, hydralazine 50 mg p.o. q.8 h., hydroxyzine 50 mg p.o. daily as needed for rash and pruritus, melatonin 3 mg p.o. nightly p.r.n. insomnia, metoprolol 25 mg p.o. daily, multivitamin one tablet p.o. daily, Patanol one drop 03:12, oxycodone and acetaminophen 5/325 mg one tablet twice daily, potassium chloride 20 mEq p.o. daily, Mysoline 250 mg three times a day, Zantac 150 mg daily, Crestor 40 mg daily, Januvia 50 mg p.o. daily, Micardis 40 mg p.o. daily, Ultram 50 mg q.6 h. p.r.n. pain, zinc sulfate 220 mg daily, and Ambien 5 mg nightly p.r.n. insomnia. ALLERGIES: To penicillin and sulfa. SOCIAL HISTORY: Denies any tobacco, alcohol, or illicit drug use. She has her daughter next to her at the bedside. She is a resident of [facility]. In the past, she has tried assisted living facility. REVIEW OF SYSTEMS: HEENT: Denies any headache, diplopia, or blurred vision. CONSTITUTIONAL: Denies any fever, chills, night sweats, or weight loss. CARDIOVASCULAR: Chest pain as mentioned above mostly with cough. She had some shortness of breath. Denies any PND, orthopnea, leg swelling, syncope, or palpitation. PULMONARY: Some productive cough with yellowish sputum. No hemoptysis. GASTROINTESTINAL: Denies any nausea, vomiting, diarrhea, constipation, abdominal pain, or GI bleed. GENITOURINARY: Denies any hematuria, dysuria, or incontinence. NEUROLOGIC: Denies any motor dysfunction, sensory deficit, or altered speech. PHYSICAL EXAMINATION: VITAL SIGNS: At the time of arrival to the hospital, blood pressure was 190/72, respirations of 16, pulse of 82, temperature of 98.1 degrees Fahrenheit, and O2 saturation of 97% on room air. GENERAL: The patient is a very pleasant 86-year-old, female, in no apparent respiratory distress. Alert and oriented x4. HEENT: Atraumatic and normocephalic. Anicteric. Pupils are equal, round, and reactive to light and accommodation. Extraocular muscles intact. NECK: JVP less than 5 cm. No carotid bruits. Carotid upstrokes 2+ bilaterally. CARDIOVASCULAR: Normal S1 and S2. Irregular rhythm. A 2/6 ejection systolic murmur at the left sternal border. PMI is at fourth intercostal space at the midclavicular line. LUNGS: Clear to auscultation bilaterally. ABDOMEN: Soft, nontender, and nondistended. No hepatosplenomegaly. Positive bowel sounds. EXTREMITIES: No evidence of edema, clubbing, or cyanosis. LABORATORY FINDINGS: WBC was 10.1, hemoglobin 11.4, hematocrit 34.7, and platelet count 272,000. Sodium is 139, potassium is 3.7, chloride 103, bicarbonate is 26, BUN of 20, creatinine 1.1, glucose is 158, and calcium is 8.3. Troponin I is 0.014. ProBNP was 1685. INR is 0.9. A 12-lead electrocardiogram, which has multifocal atrial rhythm at a rate of [address] and T-wave abnormalities. ASSESSMENT AND PLAN: The patient is a very pleasant 86-year-old female, who is seen in Cardiology consultation at the request of Dr. Bernal for evaluation of chest pain. The patient's primary sand bobber is Dr. Emerson Car at [facility]. I have read his last office visit report. 1. Chest pain, this is pleuritic in nature. A 12-lead electrocardiogram does not show any evidence of ischemia. The patient has prior history of coronary artery disease, status post percutaneous coronary intervention. I doubt this chest pain represents acute coronary syndrome for acute plaque rupture. I would, however, like to obtain 2D echocardiography for assessment of wall motion and obtaining left ventricular systolic function and also obtaining diastolic data. 2. Further therapeutic and diagnostic decision will be based on results of above tests. At this time based on the quality of the pain and the history, I do not intend of proceeding with ischemic workup including stress test. 3. History of coronary artery disease, status post percutaneous coronary intervention, stable. A 12-lead electrocardiogram, troponin I is negative. We will obtain troponin I stat to rule out acute myocardial infarction. We will obtain fasting lipid panel in the morning as well. Target LDL for this patient is less than 70 mg/dL. 4. As an outpatient, the patient was on Crestor 40 mg daily. 5. History of diabetes mellitus. The patient will require to be on combination of aspirin and statin. 6. The patient is on high-intensity statin therapy at this point for coronary artery disease as well. 7. Accelerated hypertension. At the time of arrival to the hospital, systolic blood pressure was 190 mmHg. In the outpatient setting, the patient was on amlodipine, hydralazine, metoprolol, and Micardis. The last blood pressure is 160/95 mmHg. Primary care physician has started the patient on amlodipine, metoprolol, and hydralazine. 8. We are going to be starting the patient on Micardis if it is . If not, I would opt to use irbesartan 75 mg daily. I would like to thank, Dr. Bernal, for the courtesy of this consultation. Willie Tyler M.D. DR: Yaron JOB#: [id number] CC:
--- NOTE | 2017-05-30 22:00 | Consultation ---
DATE OF CONSULTATION: 05/30/2017 REFERRING PHYSICIAN: Benjie Bernal D.O. CONSULTING PHYSICIAN: Anirudh Lal D.P.M. REASON FOR CONSULTATION: Pain in the left leg with venous stasis changes in the presence of diabetes mellitus. HISTORY OF PRESENT ILLNESS: The patient is an 86-year-old female, who was admitted to [facility] on 05/29/2017 for pneumonia and chest pain. The patient states that she is ambulatory and walks with a walker. She has a nurse who provides compression dressing for her. She states that she has no open wounds, but has pain in the left lower extremity. PAST MEDICAL HISTORY: Significant for diabetes mellitus and obesity. MEDICATIONS: Per MAR and include Lasix, vancomycin, Levaquin, ascorbic acid, gabapentin 100 mg daily, multivitamin, zinc sulfate, and heparin for DVT prophylaxis. ALLERGIES: Penicillin and sulfa. SOCIAL HISTORY: The patient resides in assisted living facility. FAMILY HISTORY: Noncontributory. REVIEW OF SYSTEMS: HEENT: The patient currently denies any headaches, blurred vision, or ringing in the ears. CARDIORESPIRATORY: The patient denies difficulty breathing. Some shortness of breath. GENITOURINARY: The patient denies any urgency, frequency, or burning upon urination, or hematuria. GASTROINTESTINAL: The patient denies any constipation, diarrhea, or blood in the stool. PHYSICAL EXAMINATION: VITAL SIGNS: Temperature is 98.0 degrees, pulse 76, respirations 19, blood pressure is 158/83, and saturating 95% on room air. EXTREMITIES: Lower extremity physical exam, vascular, nonpalpable pedal pulses noted bilaterally. Feet are equally warm. There is nonpitting edema noted bilaterally. No cyanosis is noted. DERMATOLOGICAL: There are no open wounds or lesions noted. Digital interspaces are clear. The patient has skin dystrophy noted in the bilateral legs. There is some mild erythema noted at the site. MUSCULOSKELETAL: She has 3/5 muscle strength in anterolateral and posterior muscle groups of bilateral lower extremities. Hallux varus is present bilaterally. No other gross deformity is noted. NEUROLOGICAL: Protective threshold intact. LABORATORY AND DIAGNOSTIC DATA: White blood cell count is 9.8, hemoglobin is 10.5, hematocrit is 32.1, and platelet count is 232. BUN is 16, creatinine is 0.9, and glucose is 149. Albumin is 3.0. INR is 0.9. Venous ultrasound on this admission shows no signs of deep venous thrombosis of bilateral lower extremities. ASSESSMENT: 1. Left ankle pain. 2. Venous insufficiency with venous stasis changes. 3. Diabetes mellitus. 4. Obesity. PLAN: 1. Venous ultrasound reviewed. 2. We will order arterial ultrasound and left ankle x-ray. 3. No wound care indicated at this time. 4. We will follow. Thank you for the courtesy of consultation, Dr. Bernal. Anirudh Lal D.P.M. DR: FE JOB#: [id number] CC:
[2017-05-30] MEDS: Zolpidem 5mg tab ORAL SCH (22:32)
[2017-05-30] MEDS: traMADol 50mg tab ORAL PRN (22:57)
--- NOTE | 2017-05-31 | Consultation ---
DATE OF CONSULTATION: 05/30/2017 REASON FOR CONSULTATION: Fluid overload, lower extremity edema, and congestive heart failure. HISTORY OF PRESENT ILLNESS: The patient is a very pleasant female with past medical history significant for history of chronic morbid obesity, lower extremity swelling, history of hypertension, and diabetes who was transferred from [facility] to [facility] for evaluation of chest pain. She describes her chest pain 10/10 and left-sided pleuritic, increased with cough and some shortness of breath, lower extremity swelling has been going on for last 10 days. In fact, she has chronic lower extremity cellulitis, which has been managed at [facility]. She was admitted in the hospital, had an chest x-ray, which showed pulmonary edema. I was called for management of fluid status. PAST MEDICAL HISTORY: Includin. Morbid obesity. 2. Chronic lower extremity cellulitis and edema. 3. Hypertension. 4. Dyslipidemia. PAST SURGICAL HISTORY: None. ALLERGIES: She is allergic to penicillin and sulfa. HOME MEDICATIONS: Includin. Amlodipine 10 mg p.o. daily. 2. Abilify 2 mg p.o. daily. 3. Vitamin C p.o. daily. 4. Aspirin 81 mg p.o. daily. 5. Colace 100 mg p.o. daily. 6. Cymbalta 60 mg p.o. daily. 7. Vitamin D2 p.o. daily. 8. Lasix 20 mg p.o. daily. 9. Gabapentin 100 mg in the morning and 200 mg at bedtime. 10. Hydralazine 50 mg p.o. at bedtime. 11. Metoprolol 25 mg p.o. daily. 12. Potassium 20 mEq p.o. daily. 13. Primidone 250 mg daily. 14. Zantac 150 daily. 15. 40 mg p.o. daily . 16. Januvia 50 mg p.o. daily. 17. Micardis 40 mg p.o. daily. 18. Zinc sulfate. FAMILY HISTORY: Noncontributory. REVIEW OF SYSTEMS: GENERAL: She complained of generalized weakness. Denied any fever, chills, or night sweats. HEAD AND NECK: Denies any dysphagia, odynophagia, blurry vision, headache, or neck stiffness. PULMONARY: Complained of shortness of breath, cough, left-sided pleuritic chest pain, it lasted for many hours. CARDIOVASCULAR: He complained as above, chest pain as described. She complained of lower extremity edema and had two to three pillow orthopnea. Denies any palpitations. GASTROINTESTINAL: Denies any nausea, vomiting, diarrhea, hematemesis, or hematochezia. GENITOURINARY: Denies any dysuria, frequency, hematuria. PHYSICAL EXAMINATION: VITAL SIGNS: The patient had a temperature of 98, pulse rate of 78, blood pressure 180/61, respiratory rate of 20. HEENT: Head and Neck, no JVP. No LAD. No thyromegaly. Extraocular movement intact. Pupils are reactive to light and accommodation. LUNGS: Bilateral rhonchi on both sides. CARDIAC: Regular rate and rhythm. S1 and S2. No murmur. No rub. ABDOMEN: Obese. Nontender and nondistended. EXTREMITIES: Had bilateral lower extremity edema below the knee. She has some chronic changes. She also had some redness on lower extremities. LABORATORY AND DIAGNOSTIC DATA: The patient has WBC count of 9.8, hemoglobin of 10.5, hematocrit of 32, platelet count of 232. Chemistry revealed sodium 138, potassium 3.6, chloride 103, bicarbonate 27, BUN 16, creatinine of 0.9, glucose of 149. Lactic acid 1.8. AST of 22, AST of 24, alkaline phosphatase 89. BNP is 1685. Total protein of 6.3 and albumin of 3. UA revealed specific gravity of 1.010, pH 6, protein 3+. The patient had a chest x-ray, which revealed probable mild interstitial edema. ASSESSMENT: 1. Fluid overload and possible congestive heart failure, need to evaluate echocardiogram. 2. Chronic lower extremity edema, I see the patient is on both hydralazine and amlodipine, which cause vasodilation and lower extremity edema. We may consider changing antihypertensive to losartan and Diovan for better blood pressure control. The goal of blood pressure for this patient is less than 130/75. For 3+ proteinuria, I would check the random urine protein creatinine ratio. Based on lab value, the patient has nephrotic-range proteinuria, which I need measure the random urine protein creatinine ratio. I also would like to do daily weights. I would place the patient on free water. I agree with the diuresis at this time. I would also check A1c, recommended for this patient is 6 to 7. Check lipid profile. At the end, I would like to thank Dr. Benjie Bernal for allowing me to participate in the care of this patient. Theresa Evans M.D. DR: Jayla JOB#: [id number] CC:
[2017-05-31] MEDS: Albuterol/Ipratropium 3ml neb HHN PRN ×2 (00:19→10:31)
[2017-05-31 00:44] VITALS: BP 178/66
[2017-05-31 04:00] VITALS: BP 179/63
[2017-05-31] MEDS: HydrALAZINE 50mg tab ORAL SCH ×3 (06:27→21:30)
[2017-05-31 07:15] LABS: BASOPHILS % (AUTO) 1.1 % (0.0-2.0); HEMATOCRIT 32.7 % (37.0-47.0); LYMPHOCYTES % (AUTO) 20.3 % (20.0-45.0); MEAN CORPUSCULAR VOLUME 92 FL (80-99); MONOCYTES % (AUTO) 13.1 % (1.0-10.0); NEUTROPHILS % (AUTO) 62.6 % (45.0-75.0); PLATELET COUNT 214 K/UL (150-450); RED BLOOD COUNT 3.57 M/UL (4.20-5.40); RED CELL DISTRIBUTION WIDTH 14.1 % (11.6-14.8); WHITE BLOOD COUNT 7.4 K/UL (4.8-10.8)
[2017-05-31 07:41] LABS: ANION GAP 8 mmol/L (5-15); BLOOD UREA NITROGEN 14 mg/dL (7-18); CALCIUM 8.5 MG/DL (8.5-10.1); CARBON DIOXIDE 28 MMOL/L (21-32); CHLORIDE 101 MMOL/L (98-107); CHOLESTEROL 176 MG/DL (< 200); HDL CHOLESTEROL 48 MG/DL (40-60); POTASSIUM 3.3 MMOL/L (3.5-5.1); SODIUM 137 MMOL/L (136-145); TRIGLYCERIDES 177 MG/DL (30-150)
[2017-05-31 08:00] VITALS: BP 156/67
[2017-05-31] MEDS: Metoprolol Succinate XL 50mg tab ORAL SCH (08:48)
[2017-05-31] MEDS: Primidone 250mg tab ORAL SCH ×3 (08:49→17:31)
[2017-05-31] MEDS: Ascorbic Acid 500mg tab ORAL SCH (08:49)
[2017-05-31] MEDS: ARIPiprazole 2mg tab ORAL SCH (08:51)
[2017-05-31] MEDS: Benzonatate 100mg Perles ORAL SCH ×3 (08:51→17:31)
[2017-05-31] MEDS: Docusate 100mg cap ORAL SCH ×2 (08:51→17:31)
[2017-05-31] MEDS: DULoxetine 30mg cap ORAL SCH (08:51)
[2017-05-31] MEDS: Aspirin EC 81mg tab ORAL SCH (08:51)
[2017-05-31] MEDS: Flonase Nasal Inhaler 16gm NASAL SCH (08:52)
[2017-05-31] MEDS: Zinc Sulfate 220mg cap ORAL SCH (08:52)
[2017-05-31] MEDS: sitaGLIPtin 25mg tab ORAL SCH (08:52)
[2017-05-31] MEDS: Heparin 5000 units/ml inj SUBQ SCH ×2 (08:53→21:35)
--- NOTE | 2017-05-31 11:03 | Diagnostic Imaging Report ---
Indication: left ankle pain Comparison: None Findings: 3 views of the left ankle obtained. The bones are osteopenic. Alignment is normal. No obvious fracture or malalignment identified. Soft tissue swelling is present. Vascular calcifications are noted. IMPRESSION: No acute injury. Soft tissue swelling nonspecific
--- NOTE | 2017-05-31 11:20 | Pulmonology Progress Note ---
Assessment/Plan Problems: (1) At high risk for aspiration (2) Bronchitis (3) ACS (acute coronary syndrome) (4) Peripheral vascular disease (5) HTN (hypertension) (6) Diabetes mellitus (7) Obesity (BMI 30-39.9) Assessment/Plan videow swallow study respiratory treatment check sputum antitussives Vascular evaluation Subjective ROS Limited/Unobtainable: No Interval Events: still short of breath, coughing Allergies: Coded Allergies: PENICILLINS (Verified Allergy, Unknown, 05/29/17) SULFA (SULFONAMIDE ANTIBIOTICS) (Verified Allergy, Unknown, 05/29/17) Objective Last 24 Hour Vital Signs Date Time Temp Pulse Resp B/P (MAP) Pulse Ox O2 Delivery O2 Flow Rate FiO2 05/31/17 10:38 69 18 98 Nasal Cannula 2.0 28 05/31/17 10:31 76 18 Room Air 21 05/31/17 10:31 75 20 95 Nasal Cannula 2.0 28 05/31/17 10:31 21 05/31/17 08:52 156/67 05/31/17 08:48 63 156/67 05/31/17 08:48 63 156/67 05/31/17 08:00 97.7 63 18 156/67 97 Nasal Cannula 2.0 05/31/17 08:00 62 05/31/17 06:27 153/70 05/31/17 04:45 179/63 05/31/17 04:00 67 05/31/17 04:00 97.3 76 20 179/63 Nasal Cannula 2.0 05/31/17 00:44 98.1 74 20 178/66 05/31/17 00:25 65 20 100 Nasal Cannula 2.0 28 05/31/17 00:20 21 05/31/17 00:19 72 20 97 Nasal Cannula 2.0 28 05/31/17 00:00 76 05/30/17 22:39 165/81 05/30/17 20:00 110 05/30/17 17:24 158/83 05/30/17 16:00 76 05/30/17 16:00 98.0 77 19 158/83 95 Room Air 05/30/17 12:00 77 05/30/17 12:00 98.1 75 20 160/95 99 Room Air Intake and Output 05/30/17 05/31/17 19:00 07:00 Intake Total 50 ml Balance 50 ml Intake Oral 50 ml # Voids 5 2 # Bowel Movements 1 1 Objective General Appearance: WD/WN HEENT: normocephalic Respiratory/Chest: chest wall non-tender, Rhonchi, decreased breath sounds Cardiovascular: normal peripheral pulses, normal rate Abdomen: normal bowel sounds, soft, non tender, no organomegaly Extremities: no cyanosis, no clubbing 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 Lymphatic: no neck adenopathy Microbiology Date/Time Source Procedure Growth Status 05/29/17 22:00 Blood Blood Culture - Preliminary NO GROWTH AFTER 24 HOURS Resulted 05/29/17 21:46 Blood Blood Culture - Preliminary NO GROWTH AFTER 24 HOURS Resulted 05/29/17 21:46 Nasal Nares Influenza Types A,B Antigen (RUDDY) - Final Complete Laboratory Tests 05/30/17 16:00: Urine Random Creatinine [Pending], Urine Random Microalbumin [Pending], Urine Random Total Protein 56H, Urine Random Sodium 133H, Urine Creatinine 46.1, Urine Microalbumin/Creatinine Ratio [Pending] 05/31/17 06:30: White Blood Count 7.4, Red Blood Count 3.57L, Hemoglobin 11.0L, Hematocrit 32.7L , Mean Corpuscular Volume 92, Mean Corpuscular Hemoglobin 30.7, Mean Corpuscular Hemoglobin Concent 33.6, Red Cell Distribution Width 14.1, Platelet Count 214, Mean Platelet Volume 6.9, Neutrophils (%) (Auto) 62.6, Lymphocytes (% ) (Auto) 20.3, Monocytes (%) (Auto) 13.1H, Eosinophils (%) (Auto) 3.0, Basophils (%) (Auto) 1.1, Sodium Level 137, Potassium Level 3.3L, Chloride Level 101, Carbon Dioxide Level 28, Anion Gap 8, Blood Urea Nitrogen 14, Creatinine 1.0, Estimat Glomerular Filtration Rate , Glucose Level 117H, Calcium Level 8.5, Triglycerides Level 177H, Cholesterol Level 176, LDL Cholesterol 101H, HDL Cholesterol 48, Cholesterol/HDL Ratio 3.7 Current Medications Medications (Trade) Dose Ordered Sig/Adam Route PRN Reason Start Time Stop Time Status Last Admin Dose Admin Acetaminophen (Tylenol) 325 mg Q4HR PRN ORAL Fever/Headache/Mild Pain 05/30/17 02:30 06/29/17 02:29 Albuterol/ Ipratropium (Albuterol/ Ipratropium) 3 ml Q4H PRN HHN Shortness of Breath 05/30/17 23:15 06/04/17 23:14 05/31/17 10:31 Amlodipine Besylate (Norvasc) 10 mg DAILY ORAL 05/30/17 09:00 06/29/17 08:59 05/31/17 08:48 Aripiprazole (Abilify) 2 mg DAILY ORAL 05/30/17 09:00 06/29/17 08:59 05/31/17 08:51 Ascorbic Acid (Vitamin C) 500 mg DAILY ORAL 05/30/17 09:00 06/29/17 08:59 05/31/17 08:49 Aspirin (Ecotrin) 81 mg DAILY ORAL 05/30/17 09:00 06/29/17 08:59 05/31/17 08:51 Benzonatate (Tessalon Perles) 100 mg THREE TIMES A DAY ORAL 05/30/17 09:00 06/29/17 08:59 05/31/17 08:51 Clonidine HCl (Catapres Tab) 0.1 mg Q4H PRN ORAL For High Blood Pressure 05/31/17 03:30 06/30/17 03:29 05/31/17 04:45 Docusate Sodium (Colace) 100 mg BID ORAL 05/30/17 09:00 06/29/17 08:59 05/31/17 08:51 Duloxetine HCl (Cymbalta) 60 mg DAILY ORAL 05/30/17 09:00 06/29/17 08:59 05/31/17 08:51 Ergocalciferol (Drisdol) 50,000 intlu ONCE A WEEK ORAL 06/04/17 09:00 07/04/17 08:59 Fluticasone Propionate (Flonase) 1 spray DAILY NASAL 05/30/17 09:00 06/29/17 08:59 05/31/17 08:52 Furosemide (Lasix) 20 mg DAILY ORAL 05/31/17 09:00 06/29/17 08:59 05/31/17 08:50 Gabapentin (Neurontin) 100 mg DAILY ORAL 05/30/17 09:00 06/29/17 08:59 05/31/17 08:50 Gabapentin (Neurontin) 200 mg BEDTIME ORAL 05/30/17 21:00 06/29/17 20:59 05/30/17 22:38 Heparin Sodium (Porcine) (Heparin 5000 units/ml) 5,000 units EVERY 12 HOURS SUBQ 05/30/17 09:00 06/29/17 08:59 05/31/17 08:53 Hydralazine HCl (Apresoline) 50 mg EVERY 8 HOURS ORAL 05/30/17 06:00 06/29/17 05:59 05/31/17 06:27 Irbesartan (Avapro) 75 mg DAILY ORAL 05/30/17 16:30 06/29/17 16:29 05/31/17 08:52 Levofloxacin (Levaquin) 750 mg Q48H ORAL 05/30/17 15:00 06/06/17 14:59 05/30/17 14:44 Metoprolol Succinate (Toprol XL) 50 mg DAILY ORAL 05/31/17 09:00 06/30/17 08:59 05/31/17 08:48 Multivitamins (Multivitamins) 1 tab DAILY ORAL 05/30/17 09:00 06/29/17 08:59 05/31/17 08:51 Oxycodone/ Acetaminophen (Percocet 5-325) 1 tab BID PRN ORAL For Pain 05/30/17 06:45 06/06/17 06:44 Primidone (Mysoline) 250 mg THREE TIMES A DAY ORAL 05/30/17 09:00 06/29/17 08:59 05/31/17 08:49 Sitagliptin Phosphate (Januvia) 50 mg DAILY ORAL 05/30/17 09:00 06/29/17 08:59 05/31/17 08:52 Tramadol HCl (Ultram) 50 mg Q6H PRN ORAL For Pain 05/30/17 08:30 06/06/17 08:29 05/30/17 22:57 Vancomycin HCl (Vanco rx to dose) 1 ea DAILYPRN PRN MISC Per rx protocol 05/30/17 14:15 06/29/17 14:14 Vancomycin HCl/ Dextrose 250 ml @ 166.667 mls/hr DAILY@1630 IVPB 05/30/17 16:30 06/04/17 16:29 05/30/17 17:23 Zinc Sulfate (Zinc Sulfate) 220 mg DAILY ORAL 05/30/17 09:00 06/29/17 08:59 05/31/17 08:52 Zolpidem Tartrate (Ambien) 5 mg QHS ORAL 05/30/17 21:00 06/06/17 20:59 05/30/17 22:32 FERNANDA MANNING May 31, 2017 11:20
[2017-05-31 11:34] VITALS: BP 150/58
--- NOTE | 2017-05-31 14:39 | Infectious Diseases Prog Note ---
Assessment/Plan Assessment/Plan A; Leg cellulitis Bronchitis Venous stasis DM Obesity PCN allergy P: Continue Vancomycin & Levaquin Subjective ROS Limited/Unobtainable: No Constitutional: Reports: no symptoms Respiratory: Reports: dry cough Genitourinary: Reports: no symptoms Musculoskeletal: Reports: pain, other - left leg Allergies: Coded Allergies: PENICILLINS (Verified Allergy, Unknown, 05/29/17) SULFA (SULFONAMIDE ANTIBIOTICS) (Verified Allergy, Unknown, 05/29/17) Objective Vital Signs Last 24 Hour Vital Signs Date Time Temp Pulse Resp B/P (MAP) Pulse Ox O2 Delivery O2 Flow Rate FiO2 05/31/17 13:24 150/58 05/31/17 11:34 96.3 64 18 150/58 95 Nasal Cannula 2.0 05/31/17 10:38 69 18 98 Nasal Cannula 2.0 28 05/31/17 10:31 76 18 Room Air 21 05/31/17 10:31 75 20 95 Nasal Cannula 2.0 28 05/31/17 10:31 21 05/31/17 08:52 156/67 05/31/17 08:48 63 156/67 05/31/17 08:48 63 156/67 05/31/17 08:00 97.7 63 18 156/67 97 Nasal Cannula 2.0 05/31/17 08:00 62 05/31/17 06:27 153/70 05/31/17 04:45 179/63 05/31/17 04:00 67 05/31/17 04:00 97.3 76 20 179/63 Nasal Cannula 2.0 05/31/17 00:44 98.1 74 20 178/66 05/31/17 00:25 65 20 100 Nasal Cannula 2.0 28 05/31/17 00:20 21 05/31/17 00:19 72 20 97 Nasal Cannula 2.0 28 05/31/17 00:00 76 05/30/17 22:39 165/81 05/30/17 20:00 110 05/30/17 17:24 158/83 05/30/17 16:00 76 05/30/17 16:00 98.0 77 19 158/83 95 Room Air Height (Feet): 5 Height (Inches): 0.00 Weight (Pounds): 185 General Appearance: no acute distress HEENT: mucous membranes moist Respiratory/Chest: lungs clear Cardiovascular: normal rate Abdomen: soft, non tender Extremities: other - edema of legs Skin: rash, other - on legs decreasing Neurologic/Psychiatric: alert, responsive Microbiology Date/Time Source Procedure Growth Status 05/29/17 22:00 Blood Blood Culture - Preliminary NO GROWTH AFTER 24 HOURS Resulted 05/29/17 21:46 Blood Blood Culture - Preliminary NO GROWTH AFTER 24 HOURS Resulted 05/29/17 21:46 Nasal Nares Influenza Types A,B Antigen (RUDDY) - Final Complete Laboratory Tests Test 05/30/17 16:00 05/31/17 06:30 Urine Random Creatinine Pending Urine Random Microalbumin Pending Urine Random Total Protein 56 MG/DL (< 11.9) H Urine Random Sodium 133 MEQ/L (20-110) H Urine Creatinine 46.1 MG/DL (30.0-125.0) Urine Microalbumin/Creatinine Ratio Pending White Blood Count 7.4 K/UL (4.8-10.8) Red Blood Count 3.57 M/UL (4.20-5.40) L Hemoglobin 11.0 G/DL (12.0-16.0) L Hematocrit 32.7 % (37.0-47.0) L Mean Corpuscular Volume 92 FL (80-99) Mean Corpuscular Hemoglobin 30.7 PG (27.0-31.0) Mean Corpuscular Hemoglobin Concent 33.6 G/DL (32.0-36.0) Red Cell Distribution Width 14.1 % (11.6-14.8) Platelet Count 214 K/UL (150-450) Mean Platelet Volume 6.9 FL (6.5-10.1) Neutrophils (%) (Auto) 62.6 % (45.0-75.0) Lymphocytes (%) (Auto) 20.3 % (20.0-45.0) Monocytes (%) (Auto) 13.1 % (1.0-10.0) H Eosinophils (%) (Auto) 3.0 % (0.0-3.0) Basophils (%) (Auto) 1.1 % (0.0-2.0) Sodium Level 137 MMOL/L (136-145) Potassium Level 3.3 MMOL/L (3.5-5.1) L Chloride Level 101 MMOL/L (98-107) Carbon Dioxide Level 28 MMOL/L (21-32) Anion Gap 8 mmol/L (5-15) Blood Urea Nitrogen 14 mg/dL (7-18) Creatinine 1.0 MG/DL (0.55-1.30) Estimat Glomerular Filtration Rate mL/min (>60) Glucose Level 117 MG/DL (74-106) H Calcium Level 8.5 MG/DL (8.5-10.1) Triglycerides Level 177 MG/DL (30-150) H Cholesterol Level 176 MG/DL (< 200) LDL Cholesterol 101 mg/dL (<100) H HDL Cholesterol 48 MG/DL (40-60) Cholesterol/HDL Ratio 3.7 (3.3-4.4) Current Medications Medications (Trade) Dose Ordered Sig/Adam Route PRN Reason Start Time Stop Time Status Last Admin Dose Admin Acetaminophen (Tylenol) 325 mg Q4HR PRN ORAL Fever/Headache/Mild Pain 05/30/17 02:30 06/29/17 02:29 Albuterol/ Ipratropium (Albuterol/ Ipratropium) 3 ml Q4H PRN HHN Shortness of Breath 05/30/17 23:15 06/04/17 23:14 05/31/17 10:31 Amlodipine Besylate (Norvasc) 10 mg DAILY ORAL 05/30/17 09:00 06/29/17 08:59 05/31/17 08:48 Aripiprazole (Abilify) 2 mg DAILY ORAL 05/30/17 09:00 06/29/17 08:59 05/31/17 08:51 Ascorbic Acid (Vitamin C) 500 mg DAILY ORAL 05/30/17 09:00 06/29/17 08:59 05/31/17 08:49 Aspirin (Ecotrin) 81 mg DAILY ORAL 05/30/17 09:00 06/29/17 08:59 05/31/17 08:51 Benzonatate (Tessalon Perles) 100 mg THREE TIMES A DAY ORAL 05/30/17 09:00 06/29/17 08:59 05/31/17 13:24 Clonidine HCl (Catapres Tab) 0.1 mg Q4H PRN ORAL For High Blood Pressure 05/31/17 03:30 06/30/17 03:29 05/31/17 04:45 Docusate Sodium (Colace) 100 mg BID ORAL 05/30/17 09:00 06/29/17 08:59 05/31/17 08:51 Duloxetine HCl (Cymbalta) 60 mg DAILY ORAL 05/30/17 09:00 06/29/17 08:59 05/31/17 08:51 Ergocalciferol (Drisdol) 50,000 intlu ONCE A WEEK ORAL 06/04/17 09:00 07/04/17 08:59 Fluticasone Propionate (Flonase) 1 spray DAILY NASAL 05/30/17 09:00 06/29/17 08:59 05/31/17 08:52 Furosemide (Lasix) 20 mg DAILY ORAL 05/31/17 09:00 06/29/17 08:59 05/31/17 08:50 Gabapentin (Neurontin) 100 mg DAILY ORAL 05/30/17 09:00 06/29/17 08:59 05/31/17 08:50 Gabapentin (Neurontin) 200 mg BEDTIME ORAL 05/30/17 21:00 06/29/17 20:59 05/30/17 22:38 Heparin Sodium (Porcine) (Heparin 5000 units/ml) 5,000 units EVERY 12 HOURS SUBQ 05/30/17 09:00 06/29/17 08:59 05/31/17 08:53 Hydralazine HCl (Apresoline) 50 mg EVERY 8 HOURS ORAL 05/30/17 06:00 06/29/17 05:59 05/31/17 13:24 Irbesartan (Avapro) 75 mg DAILY ORAL 05/30/17 16:30 06/29/17 16:29 05/31/17 08:52 Levofloxacin (Levaquin) 750 mg Q48H ORAL 05/30/17 15:00 06/06/17 14:59 05/30/17 14:44 Metoprolol Succinate (Toprol XL) 50 mg DAILY ORAL 05/31/17 09:00 06/30/17 08:59 05/31/17 08:48 Multivitamins (Multivitamins) 1 tab DAILY ORAL 05/30/17 09:00 06/29/17 08:59 05/31/17 08:51 Oxycodone/ Acetaminophen (Percocet 5-325) 1 tab BID PRN ORAL For Pain 05/30/17 06:45 06/06/17 06:44 Primidone (Mysoline) 250 mg THREE TIMES A DAY ORAL 05/30/17 09:00 06/29/17 08:59 05/31/17 13:24 Sitagliptin Phosphate (Januvia) 50 mg DAILY ORAL 05/30/17 09:00 06/29/17 08:59 05/31/17 08:52 Tramadol HCl (Ultram) 50 mg Q6H PRN ORAL For Pain 05/30/17 08:30 06/06/17 08:29 05/30/17 22:57 Vancomycin HCl (Vanco rx to dose) 1 ea DAILYPRN PRN MISC Per rx protocol 05/30/17 14:15 06/29/17 14:14 Vancomycin HCl/ Dextrose 250 ml @ 166.667 mls/hr DAILY@1630 IVPB 05/30/17 16:30 06/04/17 16:29 05/30/17 17:23 Zinc Sulfate (Zinc Sulfate) 220 mg DAILY ORAL 05/30/17 09:00 06/29/17 08:59 05/31/17 08:52 Zolpidem Tartrate (Ambien) 5 mg QHS ORAL 05/30/17 21:00 06/06/17 20:59 05/30/17 22:32 DHARA HANCOCK May 31, 2017 14:39
--- NOTE | 2017-05-31 15:05 | General Progress Note ---
Assessment/Plan Problem List: (1) Diabetes mellitus ICD Codes: E11.9 - Type 2 diabetes mellitus without complications SNOMED: 34158037 (2) HTN (hypertension) ICD Codes: I10 - Essential (primary) hypertension SNOMED: 35498957 (3) Obesity (BMI 30-39.9) ICD Codes: E66.9 - Obesity, unspecified SNOMED: 652406474, 591883317 (4) Upper respiratory infection ICD Codes: J06.9 - Acute upper respiratory infection, unspecified SNOMED: 03546788 (5) At high risk for aspiration ICD Codes: Z91.89 - Other specified personal risk factors, not elsewhere classified SNOMED: 011029525 (6) Peripheral vascular disease ICD Codes: I73.9 - Peripheral vascular disease, unspecified SNOMED: 412203387 (7) Bronchitis ICD Codes: J40 - Bronchitis, not specified as acute or chronic SNOMED: 46894414 (8) ACS (acute coronary syndrome) ICD Codes: I24.9 - Acute ischemic heart disease, unspecified SNOMED: 596667556 Status: unchanged Assessment/Plan o2 pulm tx diet abx cbc bmp am Subjective Constitutional: Reports: weakness Allergies: Coded Allergies: PENICILLINS (Verified Allergy, Unknown, 05/29/17) SULFA (SULFONAMIDE ANTIBIOTICS) (Verified Allergy, Unknown, 05/29/17) All Systems: reviewed and negative except above Subjective o2nc, coughing Objective Last 24 Hour Vital Signs Date Time Temp Pulse Resp B/P (MAP) Pulse Ox O2 Delivery O2 Flow Rate FiO2 05/31/17 13:24 150/58 05/31/17 12:00 65 05/31/17 11:34 96.3 64 18 150/58 95 Nasal Cannula 2.0 05/31/17 10:38 69 18 98 Nasal Cannula 2.0 28 05/31/17 10:31 76 18 Room Air 21 05/31/17 10:31 75 20 95 Nasal Cannula 2.0 28 05/31/17 10:31 21 05/31/17 08:52 156/67 05/31/17 08:48 63 156/67 05/31/17 08:48 63 156/67 05/31/17 08:00 97.7 63 18 156/67 97 Nasal Cannula 2.0 05/31/17 08:00 62 2/13/18 06:27 153/70 05/31/17 04:45 179/63 05/31/17 04:00 67 05/31/17 04:00 97.3 76 20 179/63 Nasal Cannula 2.0 05/31/17 00:44 98.1 74 20 178/66 05/31/17 00:25 65 20 100 Nasal Cannula 2.0 28 05/31/17 00:20 21 05/31/17 00:19 72 20 97 Nasal Cannula 2.0 28 05/31/17 00:00 76 05/30/17 22:39 165/81 05/30/17 20:00 110 05/30/17 17:24 158/83 05/30/17 16:00 76 05/30/17 16:00 98.0 77 19 158/83 95 Room Air Intake and Output 05/30/17 05/31/17 19:00 07:00 Intake Total 50 ml Balance 50 ml Intake Oral 50 ml # Voids 5 2 # Bowel Movements 1 1 Laboratory Tests 05/30/17 16:00: Urine Random Creatinine [Pending], Urine Random Microalbumin [Pending], Urine Random Total Protein 56H, Urine Random Sodium 133H, Urine Creatinine 46.1, Urine Microalbumin/Creatinine Ratio [Pending] 05/31/17 06:30: White Blood Count 7.4, Red Blood Count 3.57L, Hemoglobin 11.0L, Hematocrit 32.7L , Mean Corpuscular Volume 92, Mean Corpuscular Hemoglobin 30.7, Mean Corpuscular Hemoglobin Concent 33.6, Red Cell Distribution Width 14.1, Platelet Count 214, Mean Platelet Volume 6.9, Neutrophils (%) (Auto) 62.6, Lymphocytes (% ) (Auto) 20.3, Monocytes (%) (Auto) 13.1H, Eosinophils (%) (Auto) 3.0, Basophils (%) (Auto) 1.1, Sodium Level 137, Potassium Level 3.3L, Chloride Level 101, Carbon Dioxide Level 28, Anion Gap 8, Blood Urea Nitrogen 14, Creatinine 1.0, Estimat Glomerular Filtration Rate , Glucose Level 117H, Calcium Level 8.5, Triglycerides Level 177H, Cholesterol Level 176, LDL Cholesterol 101H, HDL Cholesterol 48, Cholesterol/HDL Ratio 3.7 Height (Feet): 5 Height (Inches): 0.00 Weight (Pounds): 185 General Appearance: lethargic EENT: normal ENT inspection Neck: normal alignment Cardiovascular: normal peripheral pulses, normal rate, regular rhythm Respiratory/Chest: decreased breath sounds Abdomen: normal bowel sounds, non tender, soft Extremities: normal inspection Edema: 1+ Arm (L), 1+ Arm (R), 1+ Leg (L), 1+ Leg (R), 1+ Pedal (L), 1+ Pedal ( R), 1+ Generalized Edema: trace edema Neurologic: responsive, motor weakness Skin: normal pigmentation, warm/dry [address] May 31, 2017 15:05
[2017-05-31 16:00] VITALS: BP 111/61
[2017-05-31] MEDS: Vancomycin 1250mg/D5W 250ml 250 ML IVPB SCH (16:31)
--- NOTE | 2017-05-31 18:44 | Podiatric Progress Note ---
Assessment/Plan Patient Josie Gloria is a 86 year old female who was admitted on May 29, 2017 at 22:41 with Problems: Assessment/Plan A/ 1) PAD 2) Left ankle pain 3) Venous insufficiency with venous stasis changes 4) DM 5) Obesity P/ 1) Arterial ultz and left ankle x-ray - reviewed 2) Patient needs vasc consult - Dr Orozco has been contacted 3) No wound care indicated at this time 4) Will follow Subjective Allergies: Coded Allergies: PENICILLINS (Verified Allergy, Unknown, 05/29/17) SULFA (SULFONAMIDE ANTIBIOTICS) (Verified Allergy, Unknown, 05/29/17) Objective Exam Last 24 Hour Vital Signs Date Time Temp Pulse Resp B/P (MAP) Pulse Ox O2 Delivery O2 Flow Rate FiO2 05/31/17 16:00 97.3 75 18 111/61 99 Nasal Cannula 2.0 05/31/17 16:00 64 05/31/17 13:24 150/58 05/31/17 12:00 65 05/31/17 11:34 96.3 64 18 150/58 95 Nasal Cannula 2.0 05/31/17 10:38 69 18 98 Nasal Cannula 2.0 28 05/31/17 10:31 76 18 Room Air 21 05/31/17 10:31 75 20 95 Nasal Cannula 2.0 28 05/31/17 10:31 21 05/31/17 08:52 156/67 05/31/17 08:48 63 156/67 05/31/17 08:48 63 156/67 05/31/17 08:00 97.7 63 18 156/67 97 Nasal Cannula 2.0 05/31/17 08:00 62 05/31/17 06:27 153/70 05/31/17 04:45 179/63 05/31/17 04:00 67 05/31/17 04:00 97.3 76 20 179/63 Nasal Cannula 2.0 05/31/17 00:44 98.1 74 20 178/66 05/31/17 00:25 65 20 100 Nasal Cannula 2.0 28 05/31/17 00:20 21 05/31/17 00:19 72 20 97 Nasal Cannula 2.0 28 05/31/17 00:00 76 05/30/17 22:39 165/81 05/30/17 20:00 110 Laboratory Tests Test 05/31/17 06:30 White Blood Count 7.4 K/UL (4.8-10.8) Red Blood Count 3.57 M/UL (4.20-5.40) L Hemoglobin 11.0 G/DL (12.0-16.0) L Hematocrit 32.7 % (37.0-47.0) L Mean Corpuscular Volume 92 FL (80-99) Mean Corpuscular Hemoglobin 30.7 PG (27.0-31.0) Mean Corpuscular Hemoglobin Concent 33.6 G/DL (32.0-36.0) Red Cell Distribution Width 14.1 % (11.6-14.8) Platelet Count 214 K/UL (150-450) Mean Platelet Volume 6.9 FL (6.5-10.1) Neutrophils (%) (Auto) 62.6 % (45.0-75.0) Lymphocytes (%) (Auto) 20.3 % (20.0-45.0) Monocytes (%) (Auto) 13.1 % (1.0-10.0) H Eosinophils (%) (Auto) 3.0 % (0.0-3.0) Basophils (%) (Auto) 1.1 % (0.0-2.0) Sodium Level 137 MMOL/L (136-145) Potassium Level 3.3 MMOL/L (3.5-5.1) L Chloride Level 101 MMOL/L (98-107) Carbon Dioxide Level 28 MMOL/L (21-32) Anion Gap 8 mmol/L (5-15) Blood Urea Nitrogen 14 mg/dL (7-18) Creatinine 1.0 MG/DL (0.55-1.30) Estimat Glomerular Filtration Rate mL/min (>60) Glucose Level 117 MG/DL (74-106) H Calcium Level 8.5 MG/DL (8.5-10.1) Triglycerides Level 177 MG/DL (30-150) H Cholesterol Level 176 MG/DL (< 200) LDL Cholesterol 101 mg/dL (<100) H HDL Cholesterol 48 MG/DL (40-60) Cholesterol/HDL Ratio 3.7 (3.3-4.4) Microbiology Date/Time Source Procedure Growth Status 05/29/17 22:00 Blood Blood Culture - Preliminary NO GROWTH AFTER 24 HOURS Resulted 05/29/17 21:46 Nasal Nares Influenza Types A,B Antigen (RUDDY) - Final Complete Anirudh Lal DPM May 31, 2017 18:44
[2017-05-31 20:00] VITALS: BP 138/62
--- NOTE | 2017-05-31 21:05 | Wound Care Consultation ---
Wound Assessment Wound Assessment : Wound Number: 1 Wound Present on Admission: Yes New Wound: No Status Change of Wound: No Wound Location Body Site Modif: left, right, lower Wound Location Body Site: leg Wound Type: other - cellulitis Curtis Test: Does not Curtis Percent of Wound [place]/Red: 100 Wound Drainage Amount: None Wound Drainage Odor: None/Absent Tissue Surrounding Wound: Erythemic Wound General Appearance: Reddened Wound Comment #1 BLE cellulitis. No open wound noted. Recommendation -Follow MD's order -Keep clean and dry -Optimize nutrition -Offload both heels -Heel protector on both heels -Low air loss mattress -Turn and reposition -Assess and f/u with MD for any changes MICHAEL SANFORD RN May 31, 2017 21:04
[2017-05-31] MEDS: Zolpidem 5mg tab ORAL SCH (21:29)
[2017-05-31] MEDS: traMADol 50mg tab ORAL PRN (23:05)
[2017-06-01] VITALS: BP 162/64
[2017-06-01 04:00] VITALS: BP 149/75
[2017-06-01] MEDS: HydrALAZINE 50mg tab ORAL SCH ×3 (05:17→21:55)
[2017-06-01 08:00] VITALS: BP 144/54
[2017-06-01 08:09] LABS: ALANINE AMINOTRANSFERASE 18 U/L (12-78); ALBUMIN 2.4 G/DL (3.4-5.0); ALBUMIN/GLOBULIN RATIO 0.8 (1.0-2.7); ANION GAP 6 mmol/L (5-15); ASPARTATE AMINO TRANSFERASE 19 U/L (15-37); BILIRUBIN,TOTAL 0.4 MG/DL (0.2-1.0); BLOOD UREA NITROGEN 15 mg/dL (7-18); CALCIUM 8.5 MG/DL (8.5-10.1); CARBON DIOXIDE 29 MMOL/L (21-32); CHLORIDE 104 MMOL/L (98-107); PHOSPHORUS 4.3 MG/DL (2.5-4.9); POTASSIUM 3.7 MMOL/L (3.5-5.1); SODIUM 139 MMOL/L (136-145)
[2017-06-01 08:10] LABS: ALKALINE PHOSPHATASE 66 U/L (46-116)
[2017-06-01 08:16] LABS: BASOPHILS % (AUTO) 1.1 % (0.0-2.0); EOSINOPHILS % (AUTO) 4.6 % (0.0-3.0); HEMATOCRIT 34.1 % (37.0-47.0); HEMOGLOBIN 10.9 G/DL (12.0-16.0); MEAN CORPUSCULAR VOLUME 92 FL (80-99); MONOCYTES % (AUTO) 12.4 % (1.0-10.0); NEUTROPHILS % (AUTO) 58.9 % (45.0-75.0); PLATELET COUNT 220 K/UL (150-450); RED BLOOD COUNT 3.69 M/UL (4.20-5.40); RED CELL DISTRIBUTION WIDTH 14.1 % (11.6-14.8); WHITE BLOOD COUNT 8.9 K/UL (4.8-10.8)
[2017-06-01] MEDS: Benzonatate 100mg Perles ORAL SCH ×3 (08:53→17:25)
[2017-06-01] MEDS: Metoprolol Succinate XL 50mg tab ORAL SCH (08:54)
[2017-06-01] MEDS: Docusate 100mg cap ORAL SCH ×2 (08:54→17:24)
[2017-06-01] MEDS: Zinc Sulfate 220mg cap ORAL SCH (08:54)
[2017-06-01] MEDS: ARIPiprazole 2mg tab ORAL SCH (08:54)
[2017-06-01] MEDS: Aspirin EC 81mg tab ORAL SCH (08:55)
[2017-06-01] MEDS: Ascorbic Acid 500mg tab ORAL SCH (08:55)
[2017-06-01] MEDS: Primidone 250mg tab ORAL SCH ×3 (08:55→17:24)
[2017-06-01] MEDS: Flonase Nasal Inhaler 16gm NASAL SCH (08:56)
[2017-06-01] MEDS: DULoxetine 30mg cap ORAL SCH (08:56)
[2017-06-01] MEDS ORDERED: sitaGLIPtin 50mg tab ORAL SCH (09:00)
[2017-06-01] MEDS: Heparin 5000 units/ml inj SUBQ SCH ×2 (09:02→21:57)
[2017-06-01] MEDS ORDERED: Flu Vaccine Quadrivalent 0.5ml IM ONE (10:00)
[2017-06-01] MEDS ORDERED: Pneumococcal Vaccine 25mcg/0.5ml IM ONE (10:00)
--- NOTE | 2017-06-01 11:27 | Infectious Diseases Prog Note ---
Assessment/Plan Assessment/Plan A; Leg cellulitis Bronchitis Venous stasis DM Obesity PCN allergy VRE colonization P: Continue Vancomycin & Levaquin Subjective ROS Limited/Unobtainable: Yes Respiratory: Reports: productive cough Musculoskeletal: Reports: pain, other - legs more in left side Allergies: Coded Allergies: PENICILLINS (Verified Allergy, Unknown, 05/29/17) SULFA (SULFONAMIDE ANTIBIOTICS) (Verified Allergy, Unknown, 05/29/17) Objective Vital Signs Last 24 Hour Vital Signs Date Time Temp Pulse Resp B/P (MAP) Pulse Ox O2 Delivery O2 Flow Rate FiO2 06/01/17 08:54 144/54 06/01/17 08:54 66 144/54 06/01/17 08:53 66 144/54 06/01/17 08:05 78 18 Room Air 21 06/01/17 08:00 97.2 66 22 144/54 95 Nasal Cannula 2.0 06/01/17 08:00 65 06/01/17 05:17 149/75 06/01/17 04:00 80 06/01/17 04:00 97.5 61 21 149/75 98 Nasal Cannula 2.0 06/01/17 00:00 80 06/01/17 00:00 97.4 64 21 162/64 98 Nasal Cannula 2.0 05/31/17 21:30 138/62 05/31/17 20:00 97.7 68 21 138/62 97 Nasal Cannula 2.0 05/31/17 20:00 65 05/31/17 16:00 97.3 75 18 111/61 99 Nasal Cannula 2.0 05/31/17 16:00 64 05/31/17 13:24 150/58 05/31/17 12:00 65 05/31/17 11:34 96.3 64 18 150/58 95 Nasal Cannula 2.0 Height (Feet): 5 Height (Inches): 0.00 Weight (Pounds): 185 HEENT: mucous membranes moist Respiratory/Chest: lungs clear Cardiovascular: normal rate Abdomen: soft, non tender Extremities: other - erythema of legs, more than in left side Neurologic/Psychiatric: alert, responsive Microbiology Date/Time Source Procedure Growth Status 05/29/17 22:00 Blood Blood Culture - Preliminary NO GROWTH AFTER 48 HOURS Resulted 05/29/17 21:46 Blood Blood Culture - Preliminary NO GROWTH AFTER 48 HOURS Resulted 05/31/17 04:00 Sputum Gram Stain Pending Resulted 05/31/17 04:00 Sputum Sputum Culture - Preliminary NORMAL UPPER RESPIRATORY TALYA AT 24 ... Resulted 05/30/17 01:00 Nose MRSA Culture - Final NO METHICILLIN RESISTANT STAPH AUREUS... 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 Complete Laboratory Tests Test 06/01/17 06:50 White Blood Count 8.9 K/UL (4.8-10.8) Red Blood Count 3.69 M/UL (4.20-5.40) L Hemoglobin 10.9 G/DL (12.0-16.0) L Hematocrit 34.1 % (37.0-47.0) L Mean Corpuscular Volume 92 FL (80-99) Mean Corpuscular Hemoglobin 29.5 PG (27.0-31.0) Mean Corpuscular Hemoglobin Concent 31.9 G/DL (32.0-36.0) L Red Cell Distribution Width 14.1 % (11.6-14.8) Platelet Count 220 K/UL (150-450) Mean Platelet Volume 7.3 FL (6.5-10.1) Neutrophils (%) (Auto) 58.9 % (45.0-75.0) Lymphocytes (%) (Auto) 23.0 % (20.0-45.0) Monocytes (%) (Auto) 12.4 % (1.0-10.0) H Eosinophils (%) (Auto) 4.6 % (0.0-3.0) H Basophils (%) (Auto) 1.1 % (0.0-2.0) Erythrocyte Sedimentation Rate 68 MM/HR (0-42) H Sodium Level 139 MMOL/L (136-145) Potassium Level 3.7 MMOL/L (3.5-5.1) Chloride Level 104 MMOL/L (98-107) Carbon Dioxide Level 29 MMOL/L (21-32) Anion Gap 6 mmol/L (5-15) Blood Urea Nitrogen 15 mg/dL (7-18) Creatinine 1.0 MG/DL (0.55-1.30) Estimat Glomerular Filtration Rate mL/min (>60) Glucose Level 128 MG/DL (74-106) H Calcium Level 8.5 MG/DL (8.5-10.1) Phosphorus Level 4.3 MG/DL (2.5-4.9) Magnesium Level 1.7 MG/DL (1.5-2.4) Total Bilirubin 0.4 MG/DL (0.2-1.0) Aspartate Amino Transf (AST/SGOT) 19 U/L (15-37) Alanine Aminotransferase (ALT/SGPT) 18 U/L (12-78) Alkaline Phosphatase 66 U/L (46-116) Total Protein 5.6 G/DL (6.4-8.2) L Albumin 2.4 G/DL (3.4-5.0) L Globulin 3.2 g/dL Albumin/Globulin Ratio 0.8 (1.0-2.7) L Current Medications Medications (Trade) Dose Ordered Sig/Adam Route PRN Reason Start Time Stop Time Status Last Admin Dose Admin Acetaminophen (Tylenol) 325 mg Q4HR PRN ORAL Fever/Headache/Mild Pain 05/30/17 02:30 06/29/17 02:29 Albuterol/ Ipratropium (Albuterol/ Ipratropium) 3 ml Q4H PRN HHN Shortness of Breath 05/30/17 23:15 06/04/17 23:14 05/31/17 10:31 Amlodipine Besylate (Norvasc) 10 mg DAILY ORAL 05/30/17 09:00 06/29/17 08:59 06/01/17 08:53 Aripiprazole (Abilify) 2 mg DAILY ORAL 05/30/17 09:00 06/29/17 08:59 06/01/17 08:54 Ascorbic Acid (Vitamin C) 500 mg DAILY ORAL 05/30/17 09:00 06/29/17 08:59 06/01/17 08:55 Aspirin (Ecotrin) 81 mg DAILY ORAL 05/30/17 09:00 06/29/17 08:59 06/01/17 08:55 Benzonatate (Tessalon Perles) 100 mg THREE TIMES A DAY ORAL 05/30/17 09:00 06/29/17 08:59 06/01/17 08:53 Clonidine HCl (Catapres Tab) 0.1 mg Q4H PRN ORAL For High Blood Pressure 05/31/17 03:30 06/30/17 03:29 05/31/17 04:45 Docusate Sodium (Colace) 100 mg BID ORAL 05/30/17 09:00 06/29/17 08:59 06/01/17 08:54 Duloxetine HCl (Cymbalta) 60 mg DAILY ORAL 05/30/17 09:00 06/29/17 08:59 06/01/17 08:56 Ergocalciferol (Drisdol) 50,000 intlu ONCE A WEEK ORAL 06/04/17 09:00 07/04/17 08:59 Fluticasone Propionate (Flonase) 1 spray DAILY NASAL 05/30/17 09:00 06/29/17 08:59 06/01/17 08:56 Furosemide (Lasix) 20 mg DAILY ORAL 05/31/17 09:00 06/29/17 08:59 06/01/17 08:55 Gabapentin (Neurontin) 100 mg DAILY ORAL 05/30/17 09:00 06/29/17 08:59 06/01/17 08:56 Gabapentin (Neurontin) 200 mg BEDTIME ORAL 05/30/17 21:00 06/29/17 20:59 05/31/17 21:33 Heparin Sodium (Porcine) (Heparin 5000 units/ml) 5,000 units EVERY 12 HOURS SUBQ 05/30/17 09:00 06/29/17 08:59 06/01/17 09:02 Hydralazine HCl (Apresoline) 50 mg EVERY 8 HOURS ORAL 05/30/17 06:00 06/29/17 05:59 06/01/17 05:17 Irbesartan (Avapro) 75 mg DAILY ORAL 05/30/17 16:30 06/29/17 16:29 06/01/17 08:54 Levofloxacin (Levaquin) 750 mg Q48H ORAL 05/30/17 15:00 06/06/17 14:59 05/30/17 14:44 Metoprolol Succinate (Toprol XL) 50 mg DAILY ORAL 05/31/17 09:00 06/30/17 08:59 06/01/17 08:54 Multivitamins (Multivitamins) 1 tab DAILY ORAL 05/30/17 09:00 06/29/17 08:59 06/01/17 08:56 Oxycodone/ Acetaminophen (Percocet 5-325) 1 tab BID PRN ORAL For Pain 05/30/17 06:45 06/06/17 06:44 Primidone (Mysoline) 250 mg THREE TIMES A DAY ORAL 05/30/17 09:00 06/29/17 08:59 06/01/17 08:55 Sitagliptin Phosphate (Januvia) 50 mg DAILY ORAL 06/01/17 09:00 06/29/17 08:59 06/01/17 08:56 Tramadol HCl (Ultram) 50 mg Q6H PRN ORAL For Pain 05/30/17 08:30 06/06/17 08:29 05/31/17 23:05 Vancomycin HCl (Vanco rx to dose) 1 ea DAILYPRN PRN MISC Per rx protocol 05/30/17 14:15 06/29/17 14:14 Vancomycin HCl/ Dextrose 250 ml @ 166.667 mls/hr DAILY@1630 IVPB 05/30/17 16:30 06/04/17 16:29 05/31/17 16:31 Zinc Sulfate (Zinc Sulfate) 220 mg DAILY ORAL 05/30/17 09:00 06/29/17 08:59 06/01/17 08:54 Zolpidem Tartrate (Ambien) 5 mg QHS ORAL 05/30/17 21:00 06/06/17 20:59 05/31/17 21:29 DHARA HANCOCK Jun 01, 2017 11:26
[2017-06-01 12:00] VITALS: BP 141/64
--- NOTE | 2017-06-01 12:14 | General Progress Note ---
Assessment/Plan Problem List: (1) Diabetes mellitus ICD Codes: E11.9 - Type 2 diabetes mellitus without complications SNOMED: 64600544 (2) HTN (hypertension) ICD Codes: I10 - Essential (primary) hypertension SNOMED: 53825511 (3) Obesity (BMI 30-39.9) ICD Codes: E66.9 - Obesity, unspecified SNOMED: 775319713, 240603846 (4) Upper respiratory infection ICD Codes: J06.9 - Acute upper respiratory infection, unspecified SNOMED: 92368965 (5) At high risk for aspiration ICD Codes: Z91.89 - Other specified personal risk factors, not elsewhere classified SNOMED: 879187188 (6) Peripheral vascular disease ICD Codes: I73.9 - Peripheral vascular disease, unspecified SNOMED: 127194311 (7) Bronchitis ICD Codes: J40 - Bronchitis, not specified as acute or chronic SNOMED: 34441517 (8) ACS (acute coronary syndrome) ICD Codes: I24.9 - Acute ischemic heart disease, unspecified SNOMED: 884182146 Status: unchanged Assessment/Plan o2 pulm tx diet abx cbc bmp am Subjective Constitutional: Reports: weakness Respiratory: Reports: shortness of breath Allergies: Coded Allergies: PENICILLINS (Verified Allergy, Unknown, 05/29/17) SULFA (SULFONAMIDE ANTIBIOTICS) (Verified Allergy, Unknown, 05/29/17) All Systems: reviewed and negative except above Subjective o2nc, coughing Objective Last 24 Hour Vital Signs Date Time Temp Pulse Resp B/P (MAP) Pulse Ox O2 Delivery O2 Flow Rate FiO2 06/01/17 12:00 97.0 61 20 141/64 97 Nasal Cannula 2.0 06/01/17 08:54 144/54 06/01/17 08:54 66 144/54 06/01/17 08:53 66 144/54 06/01/17 08:05 78 18 Room Air 21 06/01/17 08:00 97.2 66 22 144/54 95 Nasal Cannula 2.0 06/01/17 08:00 65 06/01/17 05:17 149/75 06/01/17 04:00 80 06/01/17 04:00 97.5 61 21 149/75 98 Nasal Cannula 2.0 06/01/17 00:00 80 06/01/17 00:00 97.4 64 21 162/64 98 Nasal Cannula 2.0 05/31/17 21:30 138/62 05/31/17 20:00 97.7 68 21 138/62 97 Nasal Cannula 2.0 05/31/17 20:00 65 05/31/17 16:00 97.3 75 18 111/61 99 Nasal Cannula 2.0 05/31/17 16:00 64 05/31/17 13:24 150/58 Intake and Output 05/31/17 06/01/17 19:00 07:00 Intake Total 570.000 ml Output Total 500 ml 0 ml Balance 70.000 ml 0 ml Intake Oral 320 ml IV Total 250.000 ml Output Urine Total 500 ml 0 ml # Bowel Movements 1 Laboratory Tests 06/01/17 06:50: White Blood Count 8.9, Red Blood Count 3.69L, Hemoglobin 10.9L, Hematocrit 34.1L , Mean Corpuscular Volume 92, Mean Corpuscular Hemoglobin 29.5, Mean Corpuscular Hemoglobin Concent 31.9L, Red Cell Distribution Width 14.1, Platelet Count 220, Mean Platelet Volume 7.3, Neutrophils (%) (Auto) 58.9, Lymphocytes (%) (Auto) 23.0, Monocytes (%) (Auto) 12.4H, Eosinophils (%) (Auto) 4.6H, Basophils (%) (Auto) 1.1, Erythrocyte Sedimentation Rate 68H, Sodium Level 139, Potassium Level 3.7, Chloride Level 104, Carbon Dioxide Level 29, Anion Gap 6, Blood Urea Nitrogen 15, Creatinine 1.0, Estimat Glomerular Filtration Rate , Glucose Level 128H, Calcium Level 8.5, Phosphorus Level 4.3, Magnesium Level 1.7, Total Bilirubin 0.4, Aspartate Amino Transf (AST/SGOT) 19, Alanine Aminotransferase (ALT/SGPT) 18, Alkaline Phosphatase 66, Total Protein 5.6L, Albumin 2.4L, Globulin 3.2, Albumin/Globulin Ratio 0.8L Height (Feet): 5 Height (Inches): 0.00 Weight (Pounds): 185 General Appearance: lethargic EENT: normal ENT inspection Neck: normal alignment Cardiovascular: normal peripheral pulses, normal rate, regular rhythm Respiratory/Chest: decreased breath sounds Abdomen: normal bowel sounds, non tender, soft Extremities: normal inspection Edema: no edema noted Arm (L), no edema noted Arm (R), no edema noted Leg (L), no edema noted Leg (R), no edema noted Pedal (L), no edema noted Pedal (R), no edema noted Generalized Neurologic: motor weakness Skin: normal pigmentation, warm/dry [address] Jun 01, 2017 12:14
--- NOTE | 2017-06-01 12:35 | Pulmonology Progress Note ---
Assessment/Plan Problems: (1) At high risk for aspiration (2) Bronchitis (3) ACS (acute coronary syndrome) (4) Peripheral vascular disease (5) HTN (hypertension) (6) Diabetes mellitus (7) Obesity (BMI 30-39.9) Assessment/Plan videow swallow study respiratory treatment check sputum antitussives Vascular evaluation reviewed Med surge RECOMMENDATIONS: 1. [facility] SOFT(CHOPPED) WITH NECTAR THICK LIQUIDS 2. STRICT ASPIRATION/REFLUX PRECAUTIONS WITH 1TO1 FEEDING 3. SWALLOW TX. Subjective ROS Limited/Unobtainable: No Constitutional: Reports: no symptoms HEENT: Repors: no symptoms Cardiovascular: Reports: no symptoms Gastrointestinal/Abdominal: Reports: no symptoms Allergies: Coded Allergies: PENICILLINS (Verified Allergy, Unknown, 05/29/17) SULFA (SULFONAMIDE ANTIBIOTICS) (Verified Allergy, Unknown, 05/29/17) Objective Last 24 Hour Vital Signs Date Time Temp Pulse Resp B/P (MAP) Pulse Ox O2 Delivery O2 Flow Rate FiO2 06/01/17 12:00 97.0 61 20 141/64 97 Nasal Cannula 2.0 06/01/17 08:54 144/54 06/01/17 08:54 66 144/54 06/01/17 08:53 66 144/54 06/01/17 08:05 78 18 Room Air 21 06/01/17 08:00 97.2 66 22 144/54 95 Nasal Cannula 2.0 06/01/17 08:00 65 06/01/17 05:17 149/75 06/01/17 04:00 80 06/01/17 04:00 97.5 61 21 149/75 98 Nasal Cannula 2.0 06/01/17 00:00 80 06/01/17 00:00 97.4 64 21 162/64 98 Nasal Cannula 2.0 05/31/17 21:30 138/62 05/31/17 20:00 97.7 68 21 138/62 97 Nasal Cannula 2.0 05/31/17 20:00 65 05/31/17 16:00 97.3 75 18 111/61 99 Nasal Cannula 2.0 05/31/17 16:00 64 05/31/17 13:24 150/58 Intake and Output 05/31/17 06/01/17 19:00 07:00 Intake Total 570.000 ml Output Total 500 ml 0 ml Balance 70.000 ml 0 ml Intake Oral 320 ml IV Total 250.000 ml Output Urine Total 500 ml 0 ml # Bowel Movements 1 Objective General Appearance: WD/WN HEENT: normocephalic Respiratory/Chest: chest wall non-tender, Rhonchi, decreased breath sounds Cardiovascular: normal peripheral pulses, normal rate Abdomen: normal bowel sounds, soft, non tender, no organomegaly Extremities: no cyanosis, no clubbing Neurologic/Psychiatric: motion study technician II-XII grossly normal Lymphatic: no neck adenopathy Microbiology Date/Time Source Procedure Growth Status 05/29/17 22:00 Blood Blood Culture - Preliminary NO GROWTH AFTER 48 HOURS Resulted 05/29/17 21:46 Blood Blood Culture - Preliminary NO GROWTH AFTER 48 HOURS Resulted 05/31/17 04:00 Sputum Gram Stain Pending Resulted 05/31/17 04:00 Sputum Sputum Culture - Preliminary NORMAL UPPER RESPIRATORY TALYA AT 24 ... Resulted 05/30/17 01:00 Nose MRSA Culture - Final NO METHICILLIN RESISTANT STAPH AUREUS... 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 Complete Laboratory Tests 06/01/17 06:50: White Blood Count 8.9, Red Blood Count 3.69L, Hemoglobin 10.9L, Hematocrit 34.1L , Mean Corpuscular Volume 92, Mean Corpuscular Hemoglobin 29.5, Mean Corpuscular Hemoglobin Concent 31.9L, Red Cell Distribution Width 14.1, Platelet Count 220, Mean Platelet Volume 7.3, Neutrophils (%) (Auto) 58.9, Lymphocytes (%) (Auto) 23.0, Monocytes (%) (Auto) 12.4H, Eosinophils (%) (Auto) 4.6H, Basophils (%) (Auto) 1.1, Erythrocyte Sedimentation Rate 68H, Sodium Level 139, Potassium Level 3.7, Chloride Level 104, Carbon Dioxide Level 29, Anion Gap 6, Blood Urea Nitrogen 15, Creatinine 1.0, Estimat Glomerular Filtration Rate , Glucose Level 128H, Calcium Level 8.5, Phosphorus Level 4.3, Magnesium Level 1.7, Total Bilirubin 0.4, Aspartate Amino Transf (AST/SGOT) 19, Alanine Aminotransferase (ALT/SGPT) 18, Alkaline Phosphatase 66, Total Protein 5.6L, Albumin 2.4L, Globulin 3.2, Albumin/Globulin Ratio 0.8L Current Medications Medications (Trade) Dose Ordered Sig/Adam Route PRN Reason Start Time Stop Time Status Last Admin Dose Admin Acetaminophen (Tylenol) 325 mg Q4HR PRN ORAL Fever/Headache/Mild Pain 05/30/17 02:30 06/29/17 02:29 Albuterol/ Ipratropium (Albuterol/ Ipratropium) 3 ml Q4H PRN HHN Shortness of Breath 05/30/17 23:15 06/04/17 23:14 05/31/17 10:31 Amlodipine Besylate (Norvasc) 10 mg DAILY ORAL 05/30/17 09:00 06/29/17 08:59 06/01/17 08:53 Aripiprazole (Abilify) 2 mg DAILY ORAL 05/30/17 09:00 06/29/17 08:59 06/01/17 08:54 Ascorbic Acid (Vitamin C) 500 mg DAILY ORAL 05/30/17 09:00 06/29/17 08:59 06/01/17 08:55 Aspirin (Ecotrin) 81 mg DAILY ORAL 05/30/17 09:00 06/29/17 08:59 06/01/17 08:55 Benzonatate (Tessalon Perles) 100 mg THREE TIMES A DAY ORAL 05/30/17 09:00 06/29/17 08:59 06/01/17 08:53 Clonidine HCl (Catapres Tab) 0.1 mg Q4H PRN ORAL For High Blood Pressure 05/31/17 03:30 06/30/17 03:29 05/31/17 04:45 Docusate Sodium (Colace) 100 mg BID ORAL 05/30/17 09:00 06/29/17 08:59 06/01/17 08:54 Duloxetine HCl (Cymbalta) 60 mg DAILY ORAL 05/30/17 09:00 06/29/17 08:59 06/01/17 08:56 Ergocalciferol (Drisdol) 50,000 intlu ONCE A WEEK ORAL 06/04/17 09:00 07/04/17 08:59 Fluticasone Propionate (Flonase) 1 spray DAILY NASAL 05/30/17 09:00 06/29/17 08:59 06/01/17 08:56 Furosemide (Lasix) 20 mg DAILY ORAL 05/31/17 09:00 06/29/17 08:59 06/01/17 08:55 Gabapentin (Neurontin) 100 mg DAILY ORAL 05/30/17 09:00 06/29/17 08:59 06/01/17 08:56 Gabapentin (Neurontin) 200 mg BEDTIME ORAL 05/30/17 21:00 06/29/17 20:59 05/31/17 21:33 Heparin Sodium (Porcine) (Heparin 5000 units/ml) 5,000 units EVERY 12 HOURS SUBQ 05/30/17 09:00 06/29/17 08:59 06/01/17 09:02 Hydralazine HCl (Apresoline) 50 mg EVERY 8 HOURS ORAL 05/30/17 06:00 06/29/17 05:59 06/01/17 05:17 Irbesartan (Avapro) 75 mg DAILY ORAL 05/30/17 16:30 06/29/17 16:29 06/01/17 08:54 Levofloxacin (Levaquin) 750 mg Q48H ORAL 05/30/17 15:00 06/06/17 14:59 05/30/17 14:44 Metoprolol Succinate (Toprol XL) 50 mg DAILY ORAL 05/31/17 09:00 06/30/17 08:59 06/01/17 08:54 Multivitamins (Multivitamins) 1 tab DAILY ORAL 05/30/17 09:00 06/29/17 08:59 06/01/17 08:56 Oxycodone/ Acetaminophen (Percocet 5-325) 1 tab BID PRN ORAL For Pain 05/30/17 06:45 06/06/17 06:44 Primidone (Mysoline) 250 mg THREE TIMES A DAY ORAL 05/30/17 09:00 06/29/17 08:59 06/01/17 08:55 Sitagliptin Phosphate (Januvia) 50 mg DAILY ORAL 06/01/17 09:00 06/29/17 08:59 06/01/17 08:56 Tramadol HCl (Ultram) 50 mg Q6H PRN ORAL For Pain 05/30/17 08:30 06/06/17 08:29 2/13/18 23:05 Vancomycin HCl (Vanco rx to dose) 1 ea DAILYPRN PRN MISC Per rx protocol 05/30/17 14:15 06/29/17 14:14 Vancomycin HCl/ Dextrose 250 ml @ 166.667 mls/hr DAILY@1630 IVPB 05/30/17 16:30 06/04/17 16:29 05/31/17 16:31 Zinc Sulfate (Zinc Sulfate) 220 mg DAILY ORAL 05/30/17 09:00 06/29/17 08:59 06/01/17 08:54 Zolpidem Tartrate (Ambien) 5 mg QHS ORAL 05/30/17 21:00 06/06/17 20:59 05/31/17 21:29 FERNANDA MANNING Jun 01, 2017 12:35
[2017-06-01 16:00] VITALS: BP 145/64
[2017-06-01] MEDS: Vancomycin 1250mg/D5W 250ml 250 ML IVPB SCH (16:22)
[2017-06-01] MEDS ORDERED: Albuterol/Ipratropium 3ml neb HHN PRN (18:30)
[2017-06-01] MEDS ORDERED: oxyCODONE HCL/Acetaminophen 5/325mg ORAL PRN (18:32)
[2017-06-01] MEDS ORDERED: traMADol 50mg tab ORAL PRN (18:33)
--- NOTE | 2017-06-01 19:22 | Nephrology Progress Note ---
Assessment/Plan Assessment 1.fluid overloud 2.chronic lower ext edema 3.cellulitis o 4.PNA 5.HTN 6.morbid obesity Plan plan continue iv antibiotic diuretic daily wt monitoring renal function avoid NSAID replace electrolyte as need it Subjective Constitutional: Reports: no symptoms HEENT: Reports: no symptoms Genitourinary: Reports: no symptoms Neurologic/Psychiatric: Reports: no symptoms Subjective alert ad awake c/o sob.cough Objective Objective Last 24 Hour Vital Signs Date Time Temp Pulse Resp B/P (MAP) Pulse Ox O2 Delivery O2 Flow Rate FiO2 06/01/17 16:00 97.0 62 20 145/64 94 Room Air 06/01/17 16:00 65 06/01/17 13:20 141/64 06/01/17 12:00 61 06/01/17 12:00 97.0 61 20 141/64 97 Nasal Cannula 2.0 06/01/17 08:54 144/54 06/01/17 08:54 66 144/54 06/01/17 08:53 66 144/54 06/01/17 08:05 78 18 Room Air 21 06/01/17 08:00 97.2 66 22 144/54 95 Nasal Cannula 2.0 06/01/17 08:00 65 06/01/17 05:17 149/75 06/01/17 04:00 80 06/01/17 04:00 97.5 61 21 149/75 98 Nasal Cannula 2.0 06/01/17 00:00 80 06/01/17 00:00 97.4 64 21 162/64 98 Nasal Cannula 2.0 05/31/17 21:30 138/62 05/31/17 20:00 97.7 68 21 138/62 97 Nasal Cannula 2.0 05/31/17 20:00 65 Intake and Output 05/31/17 06/01/17 19:00 07:00 Intake Total 570.000 ml Output Total 500 ml 0 ml Balance 70.000 ml 0 ml Intake Oral 320 ml IV Total 250.000 ml Output Urine Total 500 ml 0 ml # Bowel Movements 1 Laboratory Tests 06/01/17 06:50: White Blood Count 8.9, Red Blood Count 3.69L, Hemoglobin 10.9L, Hematocrit 34.1L , Mean Corpuscular Volume 92, Mean Corpuscular Hemoglobin 29.5, Mean Corpuscular Hemoglobin Concent 31.9L, Red Cell Distribution Width 14.1, Platelet Count 220, Mean Platelet Volume 7.3, Neutrophils (%) (Auto) 58.9, Lymphocytes (%) (Auto) 23.0, Monocytes (%) (Auto) 12.4H, Eosinophils (%) (Auto) 4.6H, Basophils (%) (Auto) 1.1, Erythrocyte Sedimentation Rate 68H, Sodium Level 139, Potassium Level 3.7, Chloride Level 104, Carbon Dioxide Level 29, Anion Gap 6, Blood Urea Nitrogen 15, Creatinine 1.0, Estimat Glomerular Filtration Rate , Glucose Level 128H, Calcium Level 8.5, Phosphorus Level 4.3, Magnesium Level 1.7, Total Bilirubin 0.4, Aspartate Amino Transf (AST/SGOT) 19, Alanine Aminotransferase (ALT/SGPT) 18, Alkaline Phosphatase 66, Total Protein 5.6L, Albumin 2.4L, Globulin 3.2, Albumin/Globulin Ratio 0.8L 06/01/17 15:15: Vancomycin Level Trough 10.9 Height (Feet): 5 Height (Inches): 0.00 Weight (Pounds): 185 Objective HEENT: Head and Neck, no JVP. No LAD. No thyromegaly. Extraocular movement intact. Pupils are reactive to light and accommodation. LUNGS: Bilateral rhonchi on both sides. CARDIAC: Regular rate and rhythm. S1 and S2. No murmur. No rub. ABDOMEN: Obese. Nontender and nondistended. EXTREMITIES: Had bilateral lower extremity edema below the knee. She has some chronic changes. She also had some redness on lower extremities. MARLEE FINLEY Jun 01, 2017 19:22
[2017-06-01 20:13] VITALS: BP 137/51
[2017-06-01] MEDS: Zolpidem 5mg tab ORAL SCH (21:55)
[2017-06-02] VITALS (8 sets, daily range): BP systolic 134–169; BP diastolic 57–72
--- NOTE | 2017-06-02 01:00 | Consultation ---
DATE OF CONSULTATION: 06/01/2017 VASCULAR SURGERY CONSULTATION CONSULTING PHYSICIAN: Tunde Orozco M.D. REFERRING PHYSICIAN: Anirudh Lal M.D. and Benjie Bernal D.O. REASON FOR CONSULTATION: Lower extremity PAD. HISTORY OF PRESENTING COMPLAINT: This is an 86-year-old obese female who presented with pneumonia and chest pain. The patient ambulates with a walker. The patient was found to have lower extremity stasis changes, underwent a duplex, which revealed moderate arterial occlusive disease. The patient denies any history of ulceration, has some left ankle pain. The patient was evaluated by Podiatry Service. Vascular Surgery is consulted for further evaluation. PAST MEDICAL HISTORY: As above, history of obesity, diabetes mellitus, hypertension, and hyperlipidemia. MEDICATIONS: See attached MAR. ALLERGIES: Sulfa and penicillin. SOCIAL HISTORY: She resides in an assisted living facility. Denies history of smoking, drugs, or alcohol abuse. FAMILY HISTORY: Unremarkable. REVIEW OF SYSTEMS: CARDIOVASCULAR: No history of chest pain or palpitations. PULMONARY: No cough. No hemoptysis. GASTROINTESTINAL: No history of abdominal pain, constipation, or diarrhea. GENITOURINARY: No urinary symptoms. NEUROLOGIC: No history of strokes or seizures. PHYSICAL EXAMINATION: GENERAL: The patient is awake, alert, and oriented x3. VITAL SIGNS: Afebrile at 98 degrees, heart rate 76, blood pressure is 168/83, respirations 16, and saturating 95% on room air. The patient has palpable radial pulses. No carotid bruits. LUNGS: Clear to auscultation. HEART: Regular. ABDOMEN: Soft and nontender. EXTREMITIES: She has palpable femoral pulses, weakly palpable popliteal and dorsalis pedis pulses. Feet are warm. She does have lower extremity stasis dermatitis with venous edema. There is no distal ulceration. Foot is warm and well perfused. LABORATORY AND DIAGNOSTIC DATA: BUN 16 and creatinine 0.9. WBC 9.8, hemoglobin 10.5, and platelet count 232. Duplex revealed no evidence of deep venous thrombosis. Arterial duplex revealed mild to moderate PAD. IMPRESSION: 1. Mixed venous arterial insufficiency, mild to moderate, no distal ulceration. 2. Lower extremity venous edema. 3. History of diabetes mellitus. 4. Obesity. 5. Hypertension. 6. Admitted with pneumonia. PLAN AND RECOMMENDATION: Continue with conservative care with lower extremity compression therapy, moisturizing cream with decubitus precautions. PT/OT. The patient can follow up as an outpatient. Currently does not warrant any immediate vascular invasive procedures. The above was discussed with with the patient and nurse at bedside Tunde Orozco M.D. DR: HUY JOB#: [id number] CC: Tunde Orozco M.D.; Fax#: [phone] Quinten ALEMAN.P.MYessenia ; FAX#: [phone] Michelle Cool
[2017-06-02] MEDS: HydrALAZINE 50mg tab ORAL SCH ×3 (06:37→21:21)
[2017-06-02 07:12] LABS: BASOPHILS % (AUTO) 0.9 % (0.0-2.0); EOSINOPHILS % (AUTO) 3.4 % (0.0-3.0); HEMATOCRIT 31.3 % (37.0-47.0); HEMOGLOBIN 10.5 G/DL (12.0-16.0); LYMPHOCYTES % (AUTO) 23.9 % (20.0-45.0); MEAN CORPUSCULAR VOLUME 91 FL (80-99); MONOCYTES % (AUTO) 10.2 % (1.0-10.0); NEUTROPHILS % (AUTO) 61.7 % (45.0-75.0); PLATELET COUNT 233 K/UL (150-450); RED BLOOD COUNT 3.44 M/UL (4.20-5.40); RED CELL DISTRIBUTION WIDTH 13.8 % (11.6-14.8); WHITE BLOOD COUNT 10.2 K/UL (4.8-10.8)
[2017-06-02 07:18] LABS: ALANINE AMINOTRANSFERASE 16 U/L (12-78); ALBUMIN 2.4 G/DL (3.4-5.0); ALBUMIN/GLOBULIN RATIO 0.7 (1.0-2.7); ALKALINE PHOSPHATASE 69 U/L (46-116); ANION GAP 7 mmol/L (5-15); ASPARTATE AMINO TRANSFERASE 17 U/L (15-37); BILIRUBIN,TOTAL 0.3 MG/DL (0.2-1.0); BLOOD UREA NITROGEN 12 mg/dL (7-18); CALCIUM 8.5 MG/DL (8.5-10.1); CARBON DIOXIDE 28 MMOL/L (21-32); CHLORIDE 102 MMOL/L (98-107); CREATININE 0.9 MG/DL (0.55-1.30); POTASSIUM 3.3 MMOL/L (3.5-5.1); SODIUM 137 MMOL/L (136-145)
[2017-06-02 07:47] LABS: PHOSPHORUS 3.7 MG/DL (2.5-4.9)
--- NOTE | 2017-06-02 08:26 | Pulmonology Progress Note ---
Assessment/Plan Assessment/Plan ASSESSMENT pleuritic chest pain acute bronchitis aspiration risk obesity DM HTN urgency PAD moderate diastolic dysfunction CAD with hx of PTCA venous insufficiency with venous stasis bilateral leg cellulitis fluid overload and peripheral edema due to acute diastolic dysfunction/ diastolic CHF PLAN OF CARE [place] floor ( transferred from [facility]) cardio follows serial troponin negative ECG no acute ischemic changes, therefore pt was ruled out for acute [place] chest pain likely pleuritic 2 to acute bronchitis O2 HHN prn a/tussive prn empiric abx, ID follows, sputum cx, blood cx and influenza screen all negative strict aspiration/reflux precautions diet as tolerated DVT prophylaxis Bowel regimen pain management ECHO with pEF 70-75% and RVSP of 31,as well as moderate , diastolic dysfunction grade 2, peripheral edema and fluid overload due to diastolic dysfunction/diastolic HF gentle diuresis,monitor cardiorenal parameters, volumes CXR in am initially with HTN urgency, BP management as per cardio, currently controlled replace K and Mg, 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 X ray no acute fracture Arterial duplex pending vasc surgeon seen and evaluated DNR/DNI status case discussed and evaluated by supervising physician Subjective Allergies: Coded Allergies: PENICILLINS (Verified Allergy, Unknown, 05/29/17) SULFA (SULFONAMIDE ANTIBIOTICS) (Verified Allergy, Unknown, 05/29/17) Subjective afebrile no leukocytosis pulse ox stable on RA still coughing, no wheezing no chest pain, no SOB low K and Mg Objective Last 24 Hour Vital Signs Date Time Temp Pulse Resp B/P (MAP) Pulse Ox O2 Delivery O2 Flow Rate FiO2 06/02/17 06:37 134/57 06/02/17 06:08 70 20 99 Room Air 06/02/17 06:00 73 20 92 Room Air 21 06/02/17 03:53 97.9 64 20 134/57 91 Room Air 67 06/02/17 01:27 97.4 70 20 140/69 95 Room Air 70 06/02/17 00:00 97.0 70 20 140/69 95 Room Air 68 06/01/17 21:55 137/51 06/01/17 20:13 97.0 75 20 137/51 94 Room Air 75 06/01/17 19:30 74 20 Room Air 21 06/01/17 16:00 97.0 62 20 145/64 94 Room Air 06/01/17 16:00 65 06/01/17 13:20 141/64 06/01/17 12:00 61 06/01/17 12:00 97.0 61 20 141/64 97 Nasal Cannula 2.0 06/01/17 08:54 144/54 06/01/17 08:54 66 144/54 06/01/17 08:53 66 144/54 Intake and Output 06/01/17 06/02/17 19:00 07:00 Intake Total 406.667 ml Output Total 800 ml Balance -393.333 ml Intake Oral 240 ml IV Total 166.667 ml Output Urine Total 800 ml # Voids 2 General Appearance: no acute distress, other - frail elderly bedridden female in NAD HEENT: normocephalic, atraumatic, anicteric, mucous membranes moist Respiratory/Chest: chest wall non-tender, no accessory muscle use, decreased breath sounds, crackles/rales - few isolated crackles at bases Cardiovascular: normal peripheral pulses, normal rate - irregualr Abdomen: soft, non tender, non distended Extremities: other - +1 eema BUE and BLE Neurologic/Psychiatric: abnormal gait, alert, responsive Musculoskeletal: atrophy - BLE Microbiology Date/Time Source Procedure Growth Status 05/31/17 04:00 Sputum Gram Stain - Final Complete 05/31/17 04:00 Sputum Sputum Culture - Final NORMAL UPPER RESPIRATORY TALYA PRESENT Complete Laboratory Tests 06/01/17 15:15: Vancomycin Level Trough 10.9 06/02/17 06:15: White Blood Count 10.2, Red Blood Count 3.44L, Hemoglobin 10.5L, Hematocrit 31.3L, Mean Corpuscular Volume 91, Mean Corpuscular Hemoglobin 30.6, Mean Corpuscular Hemoglobin Concent 33.7, Red Cell Distribution Width 13.8, Platelet Count 233, Mean Platelet Volume 6.8, Neutrophils (%) (Auto) 61.7, Lymphocytes (% ) (Auto) 23.9, Monocytes (%) (Auto) 10.2H, Eosinophils (%) (Auto) 3.4H, Basophils (%) (Auto) 0.9, Erythrocyte Sedimentation Rate [Pending], Sodium Level 137, Potassium Level 3.3L, Chloride Level 102, Carbon Dioxide Level 28, Anion Gap 7, Blood Urea Nitrogen 12, Creatinine 0.9, Estimat Glomerular Filtration Rate , Glucose Level 136H, Calcium Level 8.5, Phosphorus Level 3.7, Magnesium Level 1.5L, Total Bilirubin 0.3, Aspartate Amino Transf (AST/SGOT) 17 , Alanine Aminotransferase (ALT/SGPT) 16, Alkaline Phosphatase 69, Total Protein 5.7L, Albumin 2.4L, Globulin 3.3, Albumin/Globulin Ratio 0.7L Current Medications Medications (Trade) Dose Ordered Sig/Adam Route PRN Reason Start Time Stop Time Status Last Admin Dose Admin Acetaminophen (Tylenol) 325 mg Q4HR PRN ORAL Fever/Headache/Mild Pain 06/01/17 18:30 06/29/17 18:29 Albuterol/ Ipratropium (Albuterol/ Ipratropium) 3 ml Q4H PRN HHN Shortness of Breath 06/01/17 18:30 06/04/17 18:29 06/02/17 06:00 Amlodipine Besylate (Norvasc) 10 mg DAILY ORAL 06/02/17 09:00 06/29/17 08:59 Aripiprazole (Abilify) 2 mg DAILY ORAL 06/02/17 09:00 06/29/17 08:59 Ascorbic Acid (Vitamin C) 500 mg DAILY ORAL 06/02/17 09:00 06/29/17 08:59 Aspirin (Ecotrin) 81 mg DAILY ORAL 06/02/17 09:00 06/29/17 08:59 Benzonatate (Tessalon Perles) 100 mg THREE TIMES A DAY ORAL 06/02/17 09:00 06/29/17 08:59 Clonidine HCl (Catapres Tab) 0.1 mg Q4H PRN ORAL For High Blood Pressure 06/01/17 18:30 06/30/17 18:29 Docusate Sodium (Colace) 100 mg BID ORAL 06/02/17 09:00 06/29/17 08:59 Duloxetine HCl (Cymbalta) 60 mg DAILY ORAL 06/02/17 09:00 06/29/17 08:59 Ergocalciferol (Drisdol) 50,000 intlu ONCE A WEEK ORAL 06/04/17 09:00 07/04/17 08:59 Fluticasone Propionate (Flonase) 1 spray DAILY NASAL 06/02/17 09:00 06/29/17 08:59 Furosemide (Lasix) 20 mg DAILY ORAL 06/02/17 09:00 06/29/17 08:59 Gabapentin (Neurontin) 100 mg DAILY ORAL 06/02/17 09:00 06/29/17 08:59 Gabapentin (Neurontin) 200 mg BEDTIME ORAL 06/01/17 21:00 06/29/17 20:59 06/01/17 21:56 Heparin Sodium (Porcine) (Heparin 5000 units/ml) 5,000 units EVERY 12 HOURS SUBQ 06/01/17 21:00 06/29/17 08:59 06/01/17 21:57 Hydralazine HCl (Apresoline) 50 mg EVERY 8 HOURS ORAL 06/01/17 22:00 06/29/17 05:59 06/02/17 06:37 Irbesartan (Avapro) 75 mg DAILY@1100 ORAL 06/02/17 11:00 07/02/17 10:59 Levofloxacin (Levaquin) 750 mg Q48H ORAL 06/03/17 15:00 06/06/17 14:59 Metoprolol Succinate (Toprol XL) 50 mg DAILY ORAL 06/02/17 09:00 06/30/17 08:59 Multivitamins (Multivitamins) 1 tab DAILY ORAL 06/02/17 09:00 06/29/17 08:59 Oxycodone/ Acetaminophen (Percocet 5-325) 1 tab BID PRN ORAL For Pain 06/01/17 18:32 06/08/17 18:31 Primidone (Mysoline) 250 mg THREE TIMES A DAY ORAL 06/02/17 09:00 06/29/17 08:59 Sitagliptin Phosphate (Januvia) 50 mg DAILY ORAL 06/02/17 09:00 06/29/17 08:59 Tramadol HCl (Ultram) 50 mg Q6H PRN ORAL For Pain 06/01/17 18:33 06/06/17 18:32 Vancomycin HCl (Vanco rx to dose) 1 ea DAILYPRN PRN MISC Per rx protocol 06/01/17 18:33 07/01/17 18:32 Vancomycin HCl/ Dextrose 250 ml @ 166.667 mls/hr DAILY@1630 IVPB 06/02/17 16:30 06/04/17 16:29 Zinc Sulfate (Zinc Sulfate) 220 mg DAILY ORAL 06/02/17 09:00 06/29/17 08:59 Zolpidem Tartrate (Ambien) 5 mg QHS ORAL 06/01/17 21:00 06/06/17 20:59 06/01/17 21:55 Fox ([facility]),Adilia MESSINA Jun 02, 2017 08:26
[2017-06-02] MEDS ORDERED: Metoprolol Succinate XL 50mg tab ORAL SCH (09:00)
[2017-06-02] MEDS: DULoxetine 30mg cap ORAL SCH (10:02)
[2017-06-02] MEDS: Docusate 100mg cap ORAL SCH ×2 (10:02→19:09)
[2017-06-02] MEDS: Aspirin EC 81mg tab ORAL SCH (10:03)
[2017-06-02] MEDS: Ascorbic Acid 500mg tab ORAL SCH (10:07)
[2017-06-02] MEDS: Zinc Sulfate 220mg cap ORAL SCH (10:07)
[2017-06-02] MEDS: Benzonatate 100mg Perles ORAL SCH ×3 (10:07→19:09)
[2017-06-02] MEDS: Heparin 5000 units/ml inj SUBQ SCH ×2 (10:15→21:25)
[2017-06-02] MEDS: sitaGLIPtin 50mg tab ORAL SCH (10:43)
[2017-06-02] MEDS: Primidone 250mg tab ORAL SCH ×3 (10:43→19:09)
[2017-06-02] MEDS: ARIPiprazole 2mg tab ORAL SCH (10:43)
[2017-06-02] MEDS: Flonase Nasal Inhaler 16gm NASAL SCH (11:52)
--- NOTE | 2017-06-02 13:00 | Infectious Diseases Prog Note ---
Assessment/Plan Assessment/Plan A; Leg cellulitis Bronchitis Venous stasis DM Obesity PCN allergy VRE colonization P: discontinue Vancomycin & Levaquin agree with discharge Subjective ROS Limited/Unobtainable: Yes Constitutional: Reports: no symptoms Respiratory: Reports: no symptoms Musculoskeletal: Reports: pain, other - in left leg Allergies: Coded Allergies: PENICILLINS (Verified Allergy, Unknown, 05/29/17) SULFA (SULFONAMIDE ANTIBIOTICS) (Verified Allergy, Unknown, 05/29/17) Objective Vital Signs Last 24 Hour Vital Signs Date Time Temp Pulse Resp B/P (MAP) Pulse Ox O2 Delivery O2 Flow Rate FiO2 06/02/17 12:00 97.2 68 20 162/66 93 06/02/17 11:50 162/66 06/02/17 11:42 79 20 Room Air 21 06/02/17 10:07 84 150/72 06/02/17 10:06 84 150/72 06/02/17 09:34 84 150/72 06/02/17 08:00 97.7 81 20 162/57 93 06/02/17 08:00 Room Air 06/02/17 06:37 134/57 06/02/17 06:08 70 20 99 Room Air 06/02/17 06:00 73 20 92 Room Air 21 06/02/17 03:53 97.9 64 20 134/57 91 Room Air 67 06/02/17 01:27 97.4 70 20 140/69 95 Room Air 70 06/02/17 00:00 97.0 70 20 140/69 95 Room Air 68 06/01/17 21:55 137/51 06/01/17 20:13 97.0 75 20 137/51 94 Room Air 75 06/01/17 19:30 74 20 Room Air 21 06/01/17 16:00 97.0 62 20 145/64 94 Room Air 06/01/17 16:00 65 06/01/17 13:20 141/64 Height (Feet): 5 Height (Inches): 0.00 Weight (Pounds): 185 General Appearance: no acute distress HEENT: mucous membranes moist Respiratory/Chest: lungs clear Cardiovascular: normal rate Abdomen: soft, non tender Extremities: other - erythema meal surface left leg Neurologic/Psychiatric: alert, responsive Microbiology Date/Time Source Procedure Growth Status 05/31/17 04:00 Sputum Gram Stain - Final Complete 05/31/17 04:00 Sputum Sputum Culture - Final NORMAL UPPER RESPIRATORY TALYA PRESENT Complete Laboratory Tests Test 06/01/17 15:15 06/02/17 06:15 Vancomycin Level Trough 10.9 ug/mL (5.0-12.0) White Blood Count 10.2 K/UL (4.8-10.8) Red Blood Count 3.44 M/UL (4.20-5.40) L Hemoglobin 10.5 G/DL (12.0-16.0) L Hematocrit 31.3 % (37.0-47.0) L Mean Corpuscular Volume 91 FL (80-99) Mean Corpuscular Hemoglobin 30.6 PG (27.0-31.0) Mean Corpuscular Hemoglobin Concent 33.7 G/DL (32.0-36.0) Red Cell Distribution Width 13.8 % (11.6-14.8) Platelet Count 233 K/UL (150-450) Mean Platelet Volume 6.8 FL (6.5-10.1) Neutrophils (%) (Auto) 61.7 % (45.0-75.0) Lymphocytes (%) (Auto) 23.9 % (20.0-45.0) Monocytes (%) (Auto) 10.2 % (1.0-10.0) H Eosinophils (%) (Auto) 3.4 % (0.0-3.0) H Basophils (%) (Auto) 0.9 % (0.0-2.0) Erythrocyte Sedimentation Rate 90 MM/HR (0-42) H Sodium Level 137 MMOL/L (136-145) Potassium Level 3.3 MMOL/L (3.5-5.1) L Chloride Level 102 MMOL/L (98-107) Carbon Dioxide Level 28 MMOL/L (21-32) Anion Gap 7 mmol/L (5-15) Blood Urea Nitrogen 12 mg/dL (7-18) Creatinine 0.9 MG/DL (0.55-1.30) Estimat Glomerular Filtration Rate mL/min (>60) Glucose Level 136 MG/DL (74-106) H Calcium Level 8.5 MG/DL (8.5-10.1) Phosphorus Level 3.7 MG/DL (2.5-4.9) Magnesium Level 1.5 MG/DL (1.8-2.4) L Total Bilirubin 0.3 MG/DL (0.2-1.0) Aspartate Amino Transf (AST/SGOT) 17 U/L (15-37) Alanine Aminotransferase (ALT/SGPT) 16 U/L (12-78) Alkaline Phosphatase 69 U/L (46-116) Total Protein 5.7 G/DL (6.4-8.2) L Albumin 2.4 G/DL (3.4-5.0) L Globulin 3.3 g/dL Albumin/Globulin Ratio 0.7 (1.0-2.7) L Current Medications Medications (Trade) Dose Ordered Sig/Adam Route PRN Reason Start Time Stop Time Status Last Admin Dose Admin Acetaminophen (Tylenol) 325 mg Q4HR PRN ORAL Fever/Headache/Mild Pain 06/01/17 18:30 06/29/17 18:29 Albuterol/ Ipratropium (Albuterol/ Ipratropium) 3 ml Q4H PRN HHN Shortness of Breath 06/01/17 18:30 06/04/17 18:29 06/02/17 06:00 Amlodipine Besylate (Norvasc) 10 mg DAILY ORAL 06/02/17 09:00 06/29/17 08:59 06/02/17 10:06 Aripiprazole (Abilify) 2 mg DAILY ORAL 06/02/17 09:00 06/29/17 08:59 06/02/17 10:43 Ascorbic Acid (Vitamin C) 500 mg DAILY ORAL 06/02/17 09:00 06/29/17 08:59 06/02/17 10:07 Aspirin (Ecotrin) 81 mg DAILY ORAL 06/02/17 09:00 06/29/17 08:59 06/02/17 10:03 Benzonatate (Tessalon Perles) 100 mg THREE TIMES A DAY ORAL 06/02/17 09:00 06/29/17 08:59 06/02/17 10:07 Clonidine HCl (Catapres Tab) 0.1 mg Q4H PRN ORAL For High Blood Pressure 06/01/17 18:30 06/30/17 18:29 Docusate Sodium (Colace) 100 mg BID ORAL 06/02/17 09:00 06/29/17 08:59 06/02/17 10:02 Duloxetine HCl (Cymbalta) 60 mg DAILY ORAL 06/02/17 09:00 06/29/17 08:59 06/02/17 10:02 Ergocalciferol (Drisdol) 50,000 intlu ONCE A WEEK ORAL 06/04/17 09:00 07/04/17 08:59 Fluticasone Propionate (Flonase) 1 spray DAILY NASAL 06/02/17 09:00 06/29/17 08:59 06/02/17 11:52 Furosemide (Lasix) 20 mg DAILY ORAL 06/02/17 09:00 06/29/17 08:59 06/02/17 10:03 Gabapentin (Neurontin) 100 mg DAILY ORAL 06/02/17 09:00 06/29/17 08:59 06/02/17 10:08 Gabapentin (Neurontin) 200 mg BEDTIME ORAL 06/01/17 21:00 06/29/17 20:59 06/01/17 21:56 Heparin Sodium (Porcine) (Heparin 5000 units/ml) 5,000 units EVERY 12 HOURS SUBQ 06/01/17 21:00 06/29/17 08:59 06/02/17 10:15 Hydralazine HCl (Apresoline) 50 mg EVERY 8 HOURS ORAL 06/01/17 22:00 06/29/17 05:59 06/02/17 06:37 Irbesartan (Avapro) 75 mg DAILY@1100 ORAL 06/02/17 11:00 07/02/17 10:59 06/02/17 11:50 Levofloxacin (Levaquin) 750 mg Q48H ORAL 06/03/17 15:00 06/06/17 14:59 Metoprolol Succinate (Toprol XL) 50 mg DAILY ORAL 06/02/17 09:00 06/30/17 08:59 06/02/17 10:07 Multivitamins (Multivitamins) 1 tab DAILY ORAL 06/02/17 09:00 06/29/17 08:59 06/02/17 10:06 Oxycodone/ Acetaminophen (Percocet 5-325) 1 tab BID PRN ORAL For Pain 06/01/17 18:32 06/08/17 18:31 Primidone (Mysoline) 250 mg THREE TIMES A DAY ORAL 06/02/17 09:00 06/29/17 08:59 06/02/17 10:43 Sitagliptin Phosphate (Januvia) 50 mg DAILY ORAL 06/02/17 09:00 06/29/17 08:59 06/02/17 10:43 Tramadol HCl (Ultram) 50 mg Q6H PRN ORAL For Pain 06/01/17 18:33 06/06/17 18:32 Vancomycin HCl (Vanco rx to dose) 1 ea DAILYPRN PRN MISC Per rx protocol 06/01/17 18:33 07/01/17 18:32 Vancomycin HCl/ Dextrose 250 ml @ 166.667 mls/hr DAILY@1630 IVPB 06/02/17 16:30 06/04/17 16:29 Zinc Sulfate (Zinc Sulfate) 220 mg DAILY ORAL 06/02/17 09:00 06/29/17 08:59 06/02/17 10:07 Zolpidem Tartrate (Ambien) 5 mg QHS ORAL 06/01/17 21:00 06/06/17 20:59 06/01/17 21:55 DHARA HANCOCK Jun 02, 2017 13:00
--- NOTE | 2017-06-02 13:38 | General Progress Note ---
Assessment/Plan Problem List: (1) Diabetes mellitus ICD Codes: E11.9 - Type 2 diabetes mellitus without complications SNOMED: 72427800 (2) HTN (hypertension) ICD Codes: I10 - Essential (primary) hypertension SNOMED: 15853766 (3) Obesity (BMI 30-39.9) ICD Codes: E66.9 - Obesity, unspecified SNOMED: 204570101, 926842223 (4) Upper respiratory infection ICD Codes: J06.9 - Acute upper respiratory infection, unspecified SNOMED: 16461870 (5) At high risk for aspiration ICD Codes: Z91.89 - Other specified personal risk factors, not elsewhere classified SNOMED: 107568286 (6) Peripheral vascular disease ICD Codes: I73.9 - Peripheral vascular disease, unspecified SNOMED: 383365636 (7) Bronchitis ICD Codes: J40 - Bronchitis, not specified as acute or chronic SNOMED: 97323183 (8) ACS (acute coronary syndrome) ICD Codes: I24.9 - Acute ischemic heart disease, unspecified SNOMED: 752768328 Status: unchanged Assessment/Plan o2 pulm tx diet abx cbc bmp am dc plan Subjective Constitutional: Reports: weakness Allergies: Coded Allergies: PENICILLINS (Verified Allergy, Unknown, 05/29/17) SULFA (SULFONAMIDE ANTIBIOTICS) (Verified Allergy, Unknown, 05/29/17) All Systems: reviewed and negative except above Subjective o2nc, coughing Objective Last 24 Hour Vital Signs Date Time Temp Pulse Resp B/P (MAP) Pulse Ox O2 Delivery O2 Flow Rate FiO2 06/02/17 12:00 97.2 68 20 162/66 93 06/02/17 11:50 162/66 06/02/17 11:42 79 20 Room Air 21 06/02/17 10:07 84 150/72 06/02/17 10:06 84 150/72 06/02/17 09:34 84 150/72 06/02/17 08:00 97.7 81 20 162/57 93 06/02/17 08:00 Room Air 06/02/17 06:37 134/57 06/02/17 06:08 70 20 99 Room Air 06/02/17 06:00 73 20 92 Room Air 21 06/02/17 03:53 97.9 64 20 134/57 91 Room Air 67 2/15/18 01:27 97.4 70 20 140/69 95 Room Air 70 06/02/17 00:00 97.0 70 20 140/69 95 Room Air 68 06/01/17 21:55 137/51 06/01/17 20:13 97.0 75 20 137/51 94 Room Air 75 06/01/17 19:30 74 20 Room Air 21 06/01/17 16:00 97.0 62 20 145/64 94 Room Air 06/01/17 16:00 65 Intake and Output 06/01/17 06/02/17 19:00 07:00 Intake Total 406.667 ml Output Total 800 ml Balance -393.333 ml Intake Oral 240 ml IV Total 166.667 ml Output Urine Total 800 ml # Voids 2 Laboratory Tests 06/01/17 15:15: Vancomycin Level Trough 10.9 06/02/17 06:15: White Blood Count 10.2, Red Blood Count 3.44L, Hemoglobin 10.5L, Hematocrit 31.3L, Mean Corpuscular Volume 91, Mean Corpuscular Hemoglobin 30.6, Mean Corpuscular Hemoglobin Concent 33.7, Red Cell Distribution Width 13.8, Platelet Count 233, Mean Platelet Volume 6.8, Neutrophils (%) (Auto) 61.7, Lymphocytes (% ) (Auto) 23.9, Monocytes (%) (Auto) 10.2H, Eosinophils (%) (Auto) 3.4H, Basophils (%) (Auto) 0.9, Erythrocyte Sedimentation Rate 90H, Sodium Level 137, Potassium Level 3.3L, Chloride Level 102, Carbon Dioxide Level 28, Anion Gap 7, Blood Urea Nitrogen 12, Creatinine 0.9, Estimat Glomerular Filtration Rate , Glucose Level 136H, Calcium Level 8.5, Phosphorus Level 3.7, Magnesium Level 1.5L, Total Bilirubin 0.3, Aspartate Amino Transf (AST/SGOT) 17, Alanine Aminotransferase (ALT/SGPT) 16, Alkaline Phosphatase 69, Total Protein 5.7L, Albumin 2.4L, Globulin 3.3, Albumin/Globulin Ratio 0.7L Height (Feet): 5 Height (Inches): 0.00 Weight (Pounds): 185 General Appearance: lethargic EENT: normal ENT inspection Neck: normal alignment Cardiovascular: normal peripheral pulses, normal rate, regular rhythm Respiratory/Chest: decreased breath sounds Abdomen: normal bowel sounds, non tender, soft Extremities: normal inspection Edema: no edema noted Arm (L), no edema noted Arm (R), no edema noted Leg (L), no edema noted Leg (R), no edema noted Pedal (L), no edema noted Pedal (R), no edema noted Generalized Neurologic: motor weakness Skin: normal pigmentation, warm/dry [address] Jun 02, 2017 13:38
[2017-06-02] MEDS ORDERED: Albuterol/Ipratropium 3ml neb HHN PRN (14:00)
[2017-06-02] MEDS ORDERED: Vancomycin 1250mg/D5W 250ml 250 ML IVPB SCH (16:30)
[2017-06-02] MEDS: Magnesium Oxide 400mg tab ORAL SCH (19:09)
[2017-06-02] MEDS: Zolpidem 5mg tab ORAL SCH (21:20)
[2017-06-02] MEDS: Promethazine/Codeine 5ml UD ORAL PRN (22:10)
[2017-06-03 00:11] VITALS: BP 170/68
[2017-06-03 04:33] VITALS: BP 161/68
[2017-06-03] MEDS: HydrALAZINE 50mg tab ORAL SCH ×3 (06:12→22:02)
[2017-06-03 07:19] LABS: ANION GAP 6 mmol/L (5-15); BLOOD UREA NITROGEN 11 mg/dL (7-18); CALCIUM 8.8 MG/DL (8.5-10.1); CARBON DIOXIDE 30 MMOL/L (21-32); CHLORIDE 102 MMOL/L (98-107); CREATININE 0.9 MG/DL (0.55-1.30); POTASSIUM 3.6 MMOL/L (3.5-5.1); SODIUM 138 MMOL/L (136-145)
[2017-06-03 07:29] LABS: BASOPHILS % (AUTO) 1.3 % (0.0-2.0); EOSINOPHILS % (AUTO) 4.6 % (0.0-3.0); HEMATOCRIT 33.2 % (37.0-47.0); HEMOGLOBIN 10.8 G/DL (12.0-16.0); LYMPHOCYTES % (AUTO) 25.2 % (20.0-45.0); MEAN CORPUSCULAR VOLUME 92 FL (80-99); MONOCYTES % (AUTO) 8.8 % (1.0-10.0); NEUTROPHILS % (AUTO) 60.2 % (45.0-75.0); PLATELET COUNT 246 K/UL (150-450); RED BLOOD COUNT 3.61 M/UL (4.20-5.40); WHITE BLOOD COUNT 8.5 K/UL (4.8-10.8)
--- NOTE | 2017-06-03 07:48 | Pulmonology Progress Note ---
Assessment/Plan Assessment/Plan ASSESSMENT pleuritic chest pain acute bronchitis aspiration risk obesity DM HTN urgency PAD moderate diastolic dysfunction CAD with hx of PTCA venous insufficiency with venous stasis bilateral leg cellulitis fluid overload and peripheral edema due to diastolic dysfunction/diastolic CHF PLAN OF CARE [place] floor ( transferred from [facility]) cardio follows serial troponin negative ECG no acute ischemic changes, therefore pt was ruled out for acute [place] chest pain likely pleuritic 2 to acute bronchitis O2 HHN prn a/tussive prn empiric abx, ID follows, sputum cx, blood cx and influenza screen all negative strict aspiration/reflux precautions diet as tolerated DVT prophylaxis Bowel regimen pain management ECHO with pEF 70-75% and RVSP of 31,as well as moderate , diastolic dysfunction grade 2, peripheral edema and fluid overload due to diastolic dysfunction/diastolic HF gentle diuresis,monitor cardiorenal parameters, volumes CXR in am initially with HTN urgency, BP management as per cardio, currently 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 X 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 no acute fracture Arterial duplex pending vasc surgeon seen and evaluated DNR/DNI status pending dc to assisted living with HH as pr MD, if able to walk case discussed and evaluated by supervising physician Subjective Allergies: Coded Allergies: PENICILLINS (Verified Allergy, Unknown, 05/29/17) SULFA (SULFONAMIDE ANTIBIOTICS) (Verified Allergy, Unknown, 05/29/17) Subjective afebrile no leukocytosis pulse ox stable on RA still coughing, no wheezing no chest pain, no SOB low K and Mg Objective Last 24 Hour Vital Signs Date Time Temp Pulse Resp B/P (MAP) Pulse Ox O2 Delivery O2 Flow Rate FiO2 06/03/17 06:12 161/68 06/03/17 04:33 97.3 76 20 161/68 96 76 06/03/17 00:11 97.3 69 20 170/68 95 20 06/02/17 21:21 169/71 06/02/17 20:48 97.2 72 20 169/71 97 72 06/02/17 19:30 76 20 Room Air 21 06/02/17 16:00 97.2 72 158/68 06/02/17 15:12 158/68 06/02/17 12:00 97.2 68 20 162/66 93 06/02/17 11:50 162/66 06/02/17 11:42 79 20 Room Air 21 06/02/17 10:07 84 150/72 06/02/17 10:06 84 150/72 06/02/17 09:34 84 150/72 06/02/17 08:00 97.7 81 20 162/57 93 06/02/17 08:00 Room Air Intake and Output 06/02/17 06/03/17 19:00 07:00 Intake Total 480 ml Output Total 500 ml Balance 480 ml -500 ml Intake Oral 480 ml Output Urine Total 500 ml # Voids 3 3 Objective General Appearance: no acute distress, frail elderly bedridden female in NAD HEENT: normocephalic, atraumatic, anicteric, mucous membranes moist Respiratory/Chest: chest wall non-tender, no accessory muscle use, decreased breath sounds, Cardiovascular: normal peripheral pulses, normal rate - irregualr Abdomen: soft, non tender, non distended Extremities: other - +1 edema BUE and BLE Neurologic/Psychiatric: abnormal gait, alert, responsive Musculoskeletal: atrophy - BLE Laboratory Tests 06/03/17 05:45: White Blood Count 8.5, Red Blood Count 3.61L, Hemoglobin 10.8L, Hematocrit 33.2L , Mean Corpuscular Volume 92, Mean Corpuscular Hemoglobin 30.0, Mean Corpuscular Hemoglobin Concent 32.6, Red Cell Distribution Width 14.0, Platelet Count 246, Mean Platelet Volume 6.8, Neutrophils (%) (Auto) 60.2, Lymphocytes (% ) (Auto) 25.2, Monocytes (%) (Auto) 8.8, Eosinophils (%) (Auto) 4.6H, Basophils (%) (Auto) 1.3, Sodium Level 138, Potassium Level 3.6, Chloride Level 102, Carbon Dioxide Level 30, Anion Gap 6, Blood Urea Nitrogen 11, Creatinine 0.9, Estimat Glomerular Filtration Rate , Glucose Level 162H, Calcium Level 8.8, Magnesium Level 1.7L, Pro-B-Type Natriuretic Peptide 2949H Current Medications Medications (Trade) Dose Ordered Sig/Adam Route PRN Reason Start Time Stop Time Status Last Admin Dose Admin Acetaminophen (Tylenol) 325 mg Q4HR PRN ORAL Fever/Headache/Mild Pain 06/01/17 18:30 06/29/17 18:29 Albuterol/ Ipratropium (Albuterol/ Ipratropium) 3 ml Q4H PRN HHN Shortness of Breath 06/02/17 14:00 06/05/17 13:59 Amlodipine Besylate (Norvasc) 10 mg DAILY ORAL 06/02/17 09:00 06/29/17 08:59 06/02/17 10:06 Aripiprazole (Abilify) 2 mg DAILY ORAL 06/02/17 09:00 06/29/17 08:59 06/02/17 10:43 Ascorbic Acid (Vitamin C) 500 mg DAILY ORAL 06/02/17 09:00 06/29/17 08:59 06/02/17 10:07 Aspirin (Ecotrin) 81 mg DAILY ORAL 06/02/17 09:00 06/29/17 08:59 06/02/17 10:03 Benzonatate (Tessalon Perles) 100 mg THREE TIMES A DAY ORAL 06/02/17 09:00 06/29/17 08:59 06/02/17 19:09 Clonidine HCl (Catapres Tab) 0.1 mg Q4H PRN ORAL For High Blood Pressure 06/01/17 18:30 06/30/17 18:29 Diphenhydramine HCl (Benadryl) 25 mg Q8H PRN ORAL Itching 06/02/17 21:45 07/02/17 21:44 06/02/17 22:10 Docusate Sodium (Colace) 100 mg BID ORAL 06/02/17 09:00 06/29/17 08:59 06/02/17 19:09 Duloxetine HCl (Cymbalta) 60 mg DAILY ORAL 06/02/17 09:00 06/29/17 08:59 06/02/17 10:02 Ergocalciferol (Drisdol) 50,000 intlu ONCE A WEEK ORAL 06/04/17 09:00 07/04/17 08:59 Fluticasone Propionate (Flonase) 1 spray DAILY NASAL 06/02/17 09:00 06/29/17 08:59 06/02/17 11:52 Furosemide (Lasix) 20 mg DAILY ORAL 06/02/17 09:00 06/29/17 08:59 06/02/17 10:03 Gabapentin (Neurontin) 100 mg DAILY ORAL 06/02/17 09:00 06/29/17 08:59 06/02/17 10:08 Gabapentin (Neurontin) 200 mg BEDTIME ORAL 06/01/17 21:00 06/29/17 20:59 06/02/17 21:20 Heparin Sodium (Porcine) (Heparin 5000 units/ml) 5,000 units EVERY 12 HOURS SUBQ 06/01/17 21:00 06/29/17 08:59 06/02/17 21:25 Hydralazine HCl (Apresoline) 50 mg EVERY 8 HOURS ORAL 06/01/17 22:00 06/29/17 05:59 06/03/17 06:12 Irbesartan (Avapro) 75 mg DAILY@1100 ORAL 06/02/17 11:00 07/02/17 10:59 06/02/17 11:50 Magnesium Oxide (Mag-Ox 400mg) 400 mg THREE TIMES A DAY ORAL 06/02/17 18:00 07/02/17 17:59 06/02/17 19:09 Metoprolol Succinate (Toprol XL) 50 mg DAILY ORAL 06/02/17 09:00 06/30/17 08:59 06/02/17 10:07 Multivitamins (Multivitamins) 1 tab DAILY ORAL 06/02/17 09:00 06/29/17 08:59 06/02/17 10:06 Oxycodone/ Acetaminophen (Percocet 5-325) 1 tab BID PRN ORAL For Pain 06/01/17 18:32 06/08/17 18:31 Primidone (Mysoline) 250 mg THREE TIMES A DAY ORAL 06/02/17 09:00 06/29/17 08:59 06/02/17 19:09 Promethazine HCl/ Codeine (Phenergan with Codeine) 5 ml Q4H PRN ORAL For Cough 06/02/17 21:45 07/02/17 21:44 06/02/17 22:10 Sitagliptin Phosphate (Januvia) 50 mg DAILY ORAL 06/02/17 09:00 06/29/17 08:59 06/02/17 10:43 Tramadol HCl (Ultram) 50 mg Q6H PRN ORAL For Pain 06/01/17 18:33 06/06/17 18:32 Zinc Sulfate (Zinc Sulfate) 220 mg DAILY ORAL 06/02/17 09:00 06/29/17 08:59 06/02/17 10:07 Zolpidem Tartrate (Ambien) 5 mg QHS ORAL 06/01/17 21:00 06/06/17 20:59 06/02/17 21:20 [facility] ([facility])Adilia NP Jun 03, 2017 07:48
[2017-06-03 08:00] VITALS: BP 157/84
--- NOTE | 2017-06-03 08:42 | General Progress Note ---
Assessment/Plan Problem List: (1) Diabetes mellitus ICD Codes: E11.9 - Type 2 diabetes mellitus without complications SNOMED: 93357353 (2) HTN (hypertension) ICD Codes: I10 - Essential (primary) hypertension SNOMED: 10542630 (3) Obesity (BMI 30-39.9) ICD Codes: E66.9 - Obesity, unspecified SNOMED: 314659883, 766221235 (4) Upper respiratory infection ICD Codes: J06.9 - Acute upper respiratory infection, unspecified SNOMED: 24736782 (5) At high risk for aspiration ICD Codes: Z91.89 - Other specified personal risk factors, not elsewhere classified SNOMED: 274147722 (6) Peripheral vascular disease ICD Codes: I73.9 - Peripheral vascular disease, unspecified SNOMED: 113300487 (7) Bronchitis ICD Codes: J40 - Bronchitis, not specified as acute or chronic SNOMED: 97937073 (8) ACS (acute coronary syndrome) ICD Codes: I24.9 - Acute ischemic heart disease, unspecified SNOMED: 745039706 Status: stable, progressing, tolerating diet Assessment/Plan o2 pulm tx diet abx dc w hh if clear Subjective Allergies: Coded Allergies: PENICILLINS (Verified Allergy, Unknown, 05/29/17) SULFA (SULFONAMIDE ANTIBIOTICS) (Verified Allergy, Unknown, 05/29/17) All Systems: reviewed and negative except above Subjective o2nc, calm Objective Last 24 Hour Vital Signs Date Time Temp Pulse Resp B/P (MAP) Pulse Ox O2 Delivery O2 Flow Rate FiO2 06/03/17 06:12 161/68 06/03/17 04:33 97.3 76 20 161/68 96 76 06/03/17 00:11 97.3 69 20 170/68 95 20 06/02/17 21:21 169/71 06/02/17 20:48 97.2 72 20 169/71 97 72 06/02/17 19:30 76 20 Room Air 21 06/02/17 16:00 97.2 72 158/68 18 15:12 158/68 06/02/17 12:00 97.2 68 20 162/66 93 06/02/17 11:50 162/66 06/02/17 11:42 79 20 Room Air 21 06/02/17 10:07 84 150/72 06/02/17 10:06 84 150/72 06/02/17 09:34 84 150/72 Intake and Output 06/02/17 06/03/17 19:00 07:00 Intake Total 480 ml Output Total 500 ml Balance 480 ml -500 ml Intake Oral 480 ml Output Urine Total 500 ml # Voids 3 3 Laboratory Tests 06/03/17 05:45: White Blood Count 8.5, Red Blood Count 3.61L, Hemoglobin 10.8L, Hematocrit 33.2L , Mean Corpuscular Volume 92, Mean Corpuscular Hemoglobin 30.0, Mean Corpuscular Hemoglobin Concent 32.6, Red Cell Distribution Width 14.0, Platelet Count 246, Mean Platelet Volume 6.8, Neutrophils (%) (Auto) 60.2, Lymphocytes (% ) (Auto) 25.2, Monocytes (%) (Auto) 8.8, Eosinophils (%) (Auto) 4.6H, Basophils (%) (Auto) 1.3, Sodium Level 138, Potassium Level 3.6, Chloride Level 102, Carbon Dioxide Level 30, Anion Gap 6, Blood Urea Nitrogen 11, Creatinine 0.9, Estimat Glomerular Filtration Rate , Glucose Level 162H, Calcium Level 8.8, Magnesium Level 1.7L, Pro-B-Type Natriuretic Peptide 2949H Height (Feet): 5 Height (Inches): 0.00 Weight (Pounds): 185 General Appearance: lethargic EENT: normal ENT inspection Neck: normal alignment Cardiovascular: normal peripheral pulses, normal rate, regular rhythm Respiratory/Chest: chest wall non-tender, lungs clear, normal breath sounds Abdomen: normal bowel sounds, non tender, soft Extremities: normal inspection Edema: no edema noted Arm (L), no edema noted Arm (R), no edema noted Leg (L), no edema noted Leg (R), no edema noted Pedal (L), no edema noted Pedal (R), no edema noted Generalized Neurologic: motor weakness Skin: normal pigmentation, warm/dry [address] Jun 03, 2017 08:42
--- NOTE | 2017-06-03 09:09 | Cardiology Progress Note ---
Assessment/Plan Assessment/Plan 1. Chest pain, this is pleuritic in nature. A 12-lead electrocardiogram does not show any evidence of ischemia. The patient has prior history of coronary artery disease, status post percutaneous coronary intervention. I doubt this chest pain represents acute coronary syndrome for acute plaque rupture. Another potential possibility would be aortic stenosis, however the severity is only moderate and normally moderate does not produce any symptoms. 2. History of coronary artery disease, status post percutaneous coronary intervention, stable. AMA is ruled out this admission. 3. Dyslipidemia, target LDL for this patient is less than 70 mg/dL, continue crestor 40 mg daily. 4. History of diabetes mellitus. The patient will require to be on combination of aspirin and statin. 5. Accelerated hypertension, increase Irbesartan to 150mg daily. Subjective Subjective Not on the telemetry bed. Denies chest pain or SOB. Objective Last 24 Hour Vital Signs Date Time Temp Pulse Resp B/P (MAP) Pulse Ox O2 Delivery O2 Flow Rate FiO2 06/03/17 08:00 96.1 82 20 157/84 92 06/03/17 06:12 161/68 06/03/17 04:33 97.3 76 20 161/68 96 76 06/03/17 00:11 97.3 69 20 170/68 95 20 06/02/17 21:21 169/71 06/02/17 20:48 97.2 72 20 169/71 97 72 06/02/17 19:30 76 20 Room Air 21 06/02/17 16:00 97.2 72 158/68 06/02/17 15:12 158/68 06/02/17 12:00 97.2 68 20 162/66 93 06/02/17 11:50 162/66 06/02/17 11:42 79 20 Room Air 21 06/02/17 10:07 84 150/72 06/02/17 10:06 84 150/72 06/02/17 09:34 84 150/72 Intake and Output 06/02/17 06/03/17 19:00 07:00 Intake Total 480 ml Output Total 500 ml Balance 480 ml -500 ml Intake Oral 480 ml Output Urine Total 500 ml # Voids 3 3 2D Echo: LVEF 70%, Mod LAE, Mod JERO 1.2, Garde I LVDD, RVSP 31 mmHg Laboratory Tests Test 2/16/18 05:45 White Blood Count 8.5 K/UL (4.8-10.8) Red Blood Count 3.61 M/UL (4.20-5.40) L Hemoglobin 10.8 G/DL (12.0-16.0) L Hematocrit 33.2 % (37.0-47.0) L Mean Corpuscular Volume 92 FL (80-99) Mean Corpuscular Hemoglobin 30.0 PG (27.0-31.0) Mean Corpuscular Hemoglobin Concent 32.6 G/DL (32.0-36.0) Red Cell Distribution Width 14.0 % (11.6-14.8) Platelet Count 246 K/UL (150-450) Mean Platelet Volume 6.8 FL (6.5-10.1) Neutrophils (%) (Auto) 60.2 % (45.0-75.0) Lymphocytes (%) (Auto) 25.2 % (20.0-45.0) Monocytes (%) (Auto) 8.8 % (1.0-10.0) Eosinophils (%) (Auto) 4.6 % (0.0-3.0) H Basophils (%) (Auto) 1.3 % (0.0-2.0) Sodium Level 138 MMOL/L (136-145) Potassium Level 3.6 MMOL/L (3.5-5.1) Chloride Level 102 MMOL/L (98-107) Carbon Dioxide Level 30 MMOL/L (21-32) Anion Gap 6 mmol/L (5-15) Blood Urea Nitrogen 11 mg/dL (7-18) Creatinine 0.9 MG/DL (0.55-1.30) Estimat Glomerular Filtration Rate mL/min (>60) Glucose Level 162 MG/DL (74-106) H Calcium Level 8.8 MG/DL (8.5-10.1) Magnesium Level 1.7 MG/DL (1.8-2.4) L Pro-B-Type Natriuretic Peptide 2949 pg/mL (0-125) H Objective HEENT: Atraumatic and normocephalic. Anicteric. Pupils are equal, round, and reactive to light and accommodation. Extraocular muscles intact. NECK: JVP less than 5 cm. No carotid bruits. Carotid upstrokes 2+ bilaterally. CARDIOVASCULAR: Normal S1 and S2. Irregular rhythm. A 2/6 ejection systolic murmur at the left sternal border. PMI is at fourth intercostal space at the midclavicular line. LUNGS: Clear to auscultation bilaterally. ABDOMEN: Soft, nontender, and nondistended. No hepatosplenomegaly. Positive bowel sounds. EXTREMITIES: No evidence of edema, clubbing, or cyanosis. LEANN DAVIS Jun 03, 2017 09:09
--- NOTE | 2017-06-03 09:30 | Diagnostic Imaging Report ---
Indication: Shortness of breath Technique: One view of the chest Comparison: 05/29/2017 Findings: Better inspiration currently. The heart is enlarged. The aorta is tortuous and calcified. Mild interstitial prominence and central bronchial wall thickening persists. No significant interim change Impression: Stable, over 5 days, as described, including acuity indeterminate mild interstitial prominence
[2017-06-03] MEDS: ARIPiprazole 2mg tab ORAL SCH (10:04)
[2017-06-03] MEDS: Docusate 100mg cap ORAL SCH ×2 (10:06→18:45)
[2017-06-03] MEDS: Flonase Nasal Inhaler 16gm NASAL SCH (10:06)
[2017-06-03] MEDS: DULoxetine 30mg cap ORAL SCH (10:07)
[2017-06-03] MEDS: Magnesium Oxide 400mg tab ORAL SCH ×3 (10:07→18:45)
[2017-06-03] MEDS: Aspirin EC 81mg tab ORAL SCH (10:07)
[2017-06-03] MEDS: Primidone 250mg tab ORAL SCH ×3 (10:08→18:45)
[2017-06-03] MEDS: Metoprolol Succinate XL 100mg tab ORAL SCH (10:10)
[2017-06-03] MEDS: Benzonatate 100mg Perles ORAL SCH ×3 (10:10→18:45)
[2017-06-03] MEDS: Zinc Sulfate 220mg cap ORAL SCH (10:10)
[2017-06-03] MEDS: Ascorbic Acid 500mg tab ORAL SCH (10:10)
[2017-06-03] MEDS: Heparin 5000 units/ml inj SUBQ SCH ×2 (10:13→20:14)
[2017-06-03] MEDS: sitaGLIPtin 50mg tab ORAL SCH (10:13)
[2017-06-03 11:50] VITALS: BP 149/71
[2017-06-03] MEDS: Irbesartan 150mg tablet ORAL SCH (12:02)
--- NOTE | 2017-06-03 12:23 | Infectious Diseases Prog Note ---
Assessment/Plan Assessment/Plan A; Leg cellulitis Bronchitis Venous stasis DM Obesity PCN allergy VRE colonization P: observe off antibiotic agree with discharge Subjective ROS Limited/Unobtainable: Yes Respiratory: Reports: dry cough Allergies: Coded Allergies: PENICILLINS (Verified Allergy, Unknown, 05/29/17) SULFA (SULFONAMIDE ANTIBIOTICS) (Verified Allergy, Unknown, 05/29/17) Objective Vital Signs Last 24 Hour Vital Signs Date Time Temp Pulse Resp B/P (MAP) Pulse Ox O2 Delivery O2 Flow Rate FiO2 06/03/17 12:02 149/71 06/03/17 11:50 96.8 65 20 149/71 95 06/03/17 10:10 65 161/74 06/03/17 10:09 65 161/74 06/03/17 08:53 97 Nasal Cannula 2.0 28 06/03/17 08:53 Nasal Cannula 2.0 28 06/03/17 08:53 62 18 Nasal Cannula 2.0 28 06/03/17 08:00 96.1 82 20 157/84 92 06/03/17 06:12 161/68 06/03/17 04:33 97.3 76 20 161/68 96 76 06/03/17 00:11 97.3 69 20 170/68 95 20 06/02/17 21:21 169/71 06/02/17 20:48 97.2 72 20 169/71 97 72 06/02/17 19:30 76 20 Room Air 21 06/02/17 16:00 97.2 72 158/68 06/02/17 15:12 158/68 Height (Feet): 5 Height (Inches): 0.00 Weight (Pounds): 185 HEENT: mucous membranes moist Respiratory/Chest: other - coarse sounds Cardiovascular: normal rate Abdomen: soft, non tender Extremities: no edema Skin: other - stasis dermatitis of legs Neurologic/Psychiatric: alert, responsive Laboratory Tests Test 06/03/17 05:45 White Blood Count 8.5 K/UL (4.8-10.8) Red Blood Count 3.61 M/UL (4.20-5.40) L Hemoglobin 10.8 G/DL (12.0-16.0) L Hematocrit 33.2 % (37.0-47.0) L Mean Corpuscular Volume 92 FL (80-99) Mean Corpuscular Hemoglobin 30.0 PG (27.0-31.0) Mean Corpuscular Hemoglobin Concent 32.6 G/DL (32.0-36.0) Red Cell Distribution Width 14.0 % (11.6-14.8) Platelet Count 246 K/UL (150-450) Mean Platelet Volume 6.8 FL (6.5-10.1) Neutrophils (%) (Auto) 60.2 % (45.0-75.0) Lymphocytes (%) (Auto) 25.2 % (20.0-45.0) Monocytes (%) (Auto) 8.8 % (1.0-10.0) Eosinophils (%) (Auto) 4.6 % (0.0-3.0) H Basophils (%) (Auto) 1.3 % (0.0-2.0) Sodium Level 138 MMOL/L (136-145) Potassium Level 3.6 MMOL/L (3.5-5.1) Chloride Level 102 MMOL/L (98-107) Carbon Dioxide Level 30 MMOL/L (21-32) Anion Gap 6 mmol/L (5-15) Blood Urea Nitrogen 11 mg/dL (7-18) Creatinine 0.9 MG/DL (0.55-1.30) Estimat Glomerular Filtration Rate mL/min (>60) Glucose Level 162 MG/DL (74-106) H Calcium Level 8.8 MG/DL (8.5-10.1) Magnesium Level 1.7 MG/DL (1.8-2.4) L Pro-B-Type Natriuretic Peptide 2949 pg/mL (0-125) H Current Medications Medications (Trade) Dose Ordered Sig/Adam Route PRN Reason Start Time Stop Time Status Last Admin Dose Admin Acetaminophen (Tylenol) 325 mg Q4HR PRN ORAL Fever/Headache/Mild Pain 06/01/17 18:30 06/29/17 18:29 Albuterol/ Ipratropium (Albuterol/ Ipratropium) 3 ml Q4H PRN HHN Shortness of Breath 06/02/17 14:00 06/05/17 13:59 Amlodipine Besylate (Norvasc) 10 mg DAILY ORAL 06/02/17 09:00 06/29/17 08:59 06/03/17 10:09 Aripiprazole (Abilify) 2 mg DAILY ORAL 06/02/17 09:00 06/29/17 08:59 06/03/17 10:04 Ascorbic Acid (Vitamin C) 500 mg DAILY ORAL 06/02/17 09:00 06/29/17 08:59 06/03/17 10:10 Aspirin (Ecotrin) 81 mg DAILY ORAL 06/02/17 09:00 06/29/17 08:59 06/03/17 10:07 Benzonatate (Tessalon Perles) 100 mg THREE TIMES A DAY ORAL 06/02/17 09:00 06/29/17 08:59 06/03/17 10:10 Clonidine HCl (Catapres Tab) 0.1 mg Q4H PRN ORAL For High Blood Pressure 06/01/17 18:30 06/30/17 18:29 Diphenhydramine HCl (Benadryl) 25 mg Q8H PRN ORAL Itching 06/02/17 21:45 07/02/17 21:44 06/02/17 22:10 Docusate Sodium (Colace) 100 mg BID ORAL 06/02/17 09:00 06/29/17 08:59 06/03/17 10:06 Duloxetine HCl (Cymbalta) 60 mg DAILY ORAL 06/02/17 09:00 06/29/17 08:59 06/03/17 10:07 Ergocalciferol (Drisdol) 50,000 intlu ONCE A WEEK ORAL 06/04/17 09:00 07/04/17 08:59 Fluticasone Propionate (Flonase) 1 spray DAILY NASAL 06/02/17 09:00 06/29/17 08:59 06/03/17 10:06 Gabapentin (Neurontin) 100 mg DAILY ORAL 06/02/17 09:00 06/29/17 08:59 06/03/17 10:08 Gabapentin (Neurontin) 200 mg BEDTIME ORAL 06/01/17 21:00 06/29/17 20:59 06/02/17 21:20 Heparin Sodium (Porcine) (Heparin 5000 units/ml) 5,000 units EVERY 12 HOURS SUBQ 06/01/17 21:00 06/29/17 08:59 06/03/17 10:13 Hydralazine HCl (Apresoline) 50 mg EVERY 8 HOURS ORAL 06/01/17 22:00 06/29/17 05:59 06/03/17 06:12 Irbesartan (Avapro) 150 mg DAILY@1100 ORAL 06/03/17 11:00 07/03/17 10:59 06/03/17 12:02 Magnesium Oxide (Mag-Ox 400mg) 400 mg THREE TIMES A DAY ORAL 06/02/17 18:00 07/02/17 17:59 06/03/17 10:07 Metoprolol Succinate (Toprol XL) 100 mg DAILY ORAL 06/03/17 10:00 07/03/17 09:59 06/03/17 10:10 Multivitamins (Multivitamins) 1 tab DAILY ORAL 06/02/17 09:00 06/29/17 08:59 06/03/17 10:08 Oxycodone/ Acetaminophen (Percocet 5-325) 1 tab BID PRN ORAL For Pain 06/01/17 18:32 06/08/17 18:31 Primidone (Mysoline) 250 mg THREE TIMES A DAY ORAL 06/02/17 09:00 06/29/17 08:59 06/03/17 10:08 Promethazine HCl/ Codeine (Phenergan with Codeine) 5 ml Q4H PRN ORAL For Cough 06/02/17 21:45 07/02/17 21:44 06/02/17 22:10 Sitagliptin Phosphate (Januvia) 50 mg DAILY ORAL 06/02/17 09:00 06/29/17 08:59 06/03/17 10:13 Tramadol HCl (Ultram) 50 mg Q6H PRN ORAL For Pain 06/01/17 18:33 06/06/17 18:32 Zinc Sulfate (Zinc Sulfate) 220 mg DAILY ORAL 06/02/17 09:00 06/29/17 08:59 06/03/17 10:10 Zolpidem Tartrate (Ambien) 5 mg QHS ORAL 06/01/17 21:00 06/06/17 20:59 06/02/17 21:20 DHARA HANCOCK Jun 03, 2017 12:23
[2017-06-03 15:57] VITALS: BP 141/77
--- NOTE | 2017-06-03 16:39 | Diagnostic Imaging Report ---
Indications: Dysphagia Technique: Patient ingested multiple substances under the supervision of speech pathology. Video fluoroscopic recording performed. Total fluoroscopy time 191 seconds. Total dose area product [id number] mGycm2 Comparison: none Findings: There is deep penetration of thin liquid barium, improved with chin tuck. No latricia aspiration no aspiration or penetration of other substances. Slight delayed initiation of deglutition. Slight early pooling of barium puree and masticated solid Impression: Positive for penetration of thin liquid barium Please refer to speech pathology report for more detailed analysis
[2017-06-03 20:00] VITALS: BP 151/50
[2017-06-03] MEDS: Zolpidem 5mg tab ORAL SCH (20:12)
[2017-06-04] VITALS: BP 150/61
[2017-06-04 04:00] VITALS: BP 158/97
[2017-06-04] MEDS: HydrALAZINE 50mg tab ORAL SCH ×3 (05:05→21:16)
[2017-06-04 07:32] LABS: BASOPHILS % (AUTO) 0.8 % (0.0-2.0); EOSINOPHILS % (AUTO) 5.4 % (0.0-3.0); HEMATOCRIT 37.4 % (37.0-47.0); HEMOGLOBIN 12.4 G/DL (12.0-16.0); LYMPHOCYTES % (AUTO) 22.3 % (20.0-45.0); MEAN CORPUSCULAR VOLUME 92 FL (80-99); NEUTROPHILS % (AUTO) 61.5 % (45.0-75.0); PLATELET COUNT 293 K/UL (150-450); RED BLOOD COUNT 4.07 M/UL (4.20-5.40); RED CELL DISTRIBUTION WIDTH 13.7 % (11.6-14.8)
[2017-06-04 07:57] LABS: ANION GAP 9 mmol/L (5-15); BLOOD UREA NITROGEN 14 mg/dL (7-18); CALCIUM 9.6 MG/DL (8.5-10.1); CARBON DIOXIDE 29 MMOL/L (21-32); CHLORIDE 101 MMOL/L (98-107); POTASSIUM 3.6 MMOL/L (3.5-5.1); SODIUM 139 MMOL/L (136-145)
[2017-06-04 08:00] VITALS: BP 165/82
[2017-06-04] MEDS ORDERED: Vitamin D 50,000 units cap ORAL SCH ×2 (09:00)
[2017-06-04] MEDS: Zinc Sulfate 220mg cap ORAL SCH (09:13)
[2017-06-04] MEDS: Ascorbic Acid 500mg tab ORAL SCH (09:13)
[2017-06-04] MEDS: Metoprolol Succinate XL 100mg tab ORAL SCH (09:13)
[2017-06-04] MEDS: Benzonatate 100mg Perles ORAL SCH ×3 (09:14→18:07)
[2017-06-04] MEDS: Aspirin EC 81mg tab ORAL SCH (09:14)
[2017-06-04] MEDS: ARIPiprazole 2mg tab ORAL SCH (09:14)
[2017-06-04] MEDS: DULoxetine 30mg cap ORAL SCH (09:14)
[2017-06-04] MEDS: Docusate 100mg cap ORAL SCH ×2 (09:14→18:07)
[2017-06-04] MEDS: sitaGLIPtin 50mg tab ORAL SCH (09:15)
[2017-06-04] MEDS: Primidone 250mg tab ORAL SCH ×3 (09:15→18:07)
[2017-06-04] MEDS: Magnesium Oxide 400mg tab ORAL SCH ×3 (09:15→18:07)
[2017-06-04] MEDS: Heparin 5000 units/ml inj SUBQ SCH ×2 (09:16→21:20)
[2017-06-04] MEDS: Flonase Nasal Inhaler 16gm NASAL SCH (09:34)
--- NOTE | 2017-06-04 11:09 | Infectious Diseases Prog Note ---
Assessment/Plan Assessment/Plan antibiotics : none A 1. leg cellulitis s/p rx 2. bronchitis 3. obesity' 4. rectal VRE colonization 5. DM P 1. continue off antibiotics Subjective Constitutional: Denies: fever, chills Respiratory: Reports: dry cough - decreasing, Denies: shortness of breath Gastrointestinal/Abdominal: Denies: nausea, vomiting, diarrhea Musculoskeletal: Denies: pain Allergies: Coded Allergies: PENICILLINS (Verified Allergy, Unknown, 05/29/17) SULFA (SULFONAMIDE ANTIBIOTICS) (Verified Allergy, Unknown, 05/29/17) Objective Vital Signs Last 24 Hour Vital Signs Date Time Temp Pulse Resp B/P (MAP) Pulse Ox O2 Delivery O2 Flow Rate FiO2 06/04/17 09:15 60 165/82 06/04/17 09:13 60 165/82 06/04/17 09:13 165/82 06/04/17 08:00 97.7 60 18 165/82 94 Room Air 06/04/17 05:05 158/97 06/04/17 04:00 97.2 56 21 158/97 93 06/04/17 00:00 97.6 66 20 150/61 96 06/03/17 22:02 138/95 06/03/17 20:00 97.9 69 20 151/50 95 06/03/17 19:35 64 20 Room Air 21 06/03/17 19:35 Room Air 21 06/03/17 15:57 97.0 64 20 141/77 93 06/03/17 14:33 157/58 06/03/17 12:02 149/71 06/03/17 11:50 96.8 65 20 149/71 95 Height (Feet): 5 Height (Inches): 0.00 Weight (Pounds): 185 Respiratory/Chest: lungs clear Cardiovascular: normal rate, regular rhythm, no gallop/murmur Abdomen: soft, non tender Extremities: no edema Laboratory Tests Test 06/04/17 05:00 White Blood Count 9.0 K/UL (4.8-10.8) Red Blood Count 4.07 M/UL (4.20-5.40) L Hemoglobin 12.4 G/DL (12.0-16.0) Hematocrit 37.4 % (37.0-47.0) Mean Corpuscular Volume 92 FL (80-99) Mean Corpuscular Hemoglobin 30.5 PG (27.0-31.0) Mean Corpuscular Hemoglobin Concent 33.2 G/DL (32.0-36.0) Red Cell Distribution Width 13.7 % (11.6-14.8) Platelet Count 293 K/UL (150-450) Mean Platelet Volume 6.6 FL (6.5-10.1) Neutrophils (%) (Auto) 61.5 % (45.0-75.0) Lymphocytes (%) (Auto) 22.3 % (20.0-45.0) Monocytes (%) (Auto) 10.0 % (1.0-10.0) Eosinophils (%) (Auto) 5.4 % (0.0-3.0) H Basophils (%) (Auto) 0.8 % (0.0-2.0) Sodium Level 139 MMOL/L (136-145) Potassium Level 3.6 MMOL/L (3.5-5.1) Chloride Level 101 MMOL/L (98-107) Carbon Dioxide Level 29 MMOL/L (21-32) Anion Gap 9 mmol/L (5-15) Blood Urea Nitrogen 14 mg/dL (7-18) Creatinine 1.0 MG/DL (0.55-1.30) Estimat Glomerular Filtration Rate mL/min (>60) Glucose Level 158 MG/DL (74-106) H Calcium Level 9.6 MG/DL (8.5-10.1) Magnesium Level 2.2 MG/DL (1.8-2.4) SHEA SERRANO Jun 04, 2017 11:08
[2017-06-04] MEDS: Irbesartan 150mg tablet ORAL SCH (11:40)
[2017-06-04 12:03] VITALS: BP 129/51
--- NOTE | 2017-06-04 12:27 | Pulmonology Progress Note ---
Assessment/Plan Assessment/Plan ASSESSMENT pleuritic chest pain acute bronchitis aspiration risk obesity DM HTN urgency PAD moderate diastolic dysfunction CAD with hx of PTCA venous insufficiency with venous stasis bilateral leg cellulitis fluid overload and peripheral edema due to diastolic dysfunction/diastolic CHF PLAN OF CARE MS floor ( transferred from [facility]) cardio follows serial troponin negative ECG no acute ischemic changes, therefore pt was ruled out for acute WI chest pain likely pleuritic 2 to acute bronchitis O2 HHN prn a/tussive prn empiric abx, ID follows, sputum cx, blood cx and influenza screen all negative strict aspiration/reflux precautions diet as tolerated DVT prophylaxis Bowel regimen pain management ECHO with pEF 70-75% and RVSP of 31,as well as moderate , diastolic dysfunction grade 2, peripheral edema and fluid overload due to diastolic dysfunction/diastolic HF gentle diuresis,monitor cardiorenal parameters, volumes CXR in am initially with HTN urgency, BP management as per cardio, currently controlled 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 L ankle X ray no acute fracture Arterial duplex pending vasc surgeon seen and evaluated DNR/DNI status stable fro dc ambulated with PT lytes stabilized pulse ox stable case discussed and evaluated by supervising physician Subjective Allergies: Coded Allergies: PENICILLINS (Verified Allergy, Unknown, 05/29/17) SULFA (SULFONAMIDE ANTIBIOTICS) (Verified Allergy, Unknown, 05/29/17) Subjective afebrile no leukocytosis pulse ox stable on RA still coughing, no wheezing no chest pain, no SOB Objective Last 24 Hour Vital Signs Date Time Temp Pulse Resp B/P (MAP) Pulse Ox O2 Delivery O2 Flow Rate FiO2 06/04/17 12:03 98.1 54 18 129/51 96 2.0 06/04/17 11:40 165/82 06/04/17 09:15 60 165/82 06/04/17 09:13 60 165/82 06/04/17 09:13 165/82 06/04/17 08:00 97.7 60 18 165/82 94 Room Air 06/04/17 05:05 158/97 06/04/17 04:00 97.2 56 21 158/97 93 06/04/17 00:00 97.6 66 20 150/61 96 06/03/17 22:02 138/95 06/03/17 20:00 97.9 69 20 151/50 95 06/03/17 19:35 64 20 Room Air 21 06/03/17 19:35 Room Air 21 06/03/17 15:57 97.0 64 20 141/77 93 06/03/17 14:33 157/58 Intake and Output 06/03/17 06/04/17 19:00 07:00 Intake Total 540 ml Output Total 1000 ml Balance 540 ml -1000 ml Intake Oral 540 ml Output Urine Total 1000 ml # Voids 3 # Bowel Movements 1 Objective General Appearance: no acute distress, frail elderly bedridden female in NAD HEENT: normocephalic, atraumatic, anicteric, mucous membranes moist Respiratory/Chest: chest wall non-tender, no accessory muscle use, decreased breath sounds, Cardiovascular: normal peripheral pulses, normal rate - irregualr Abdomen: soft, non tender, non distended Extremities: other - +1 edema BUE and BLE Neurologic/Psychiatric: abnormal gait, alert, responsive Musculoskeletal: atrophy - BLE Laboratory Tests 06/04/17 05:00: White Blood Count 9.0, Red Blood Count 4.07L, Hemoglobin 12.4, Hematocrit 37.4, Mean Corpuscular Volume 92, Mean Corpuscular Hemoglobin 30.5, Mean Corpuscular Hemoglobin Concent 33.2, Red Cell Distribution Width 13.7, Platelet Count 293, Mean Platelet Volume 6.6, Neutrophils (%) (Auto) 61.5, Lymphocytes (%) (Auto) 22.3, Monocytes (%) (Auto) 10.0, Eosinophils (%) (Auto) 5.4H, Basophils (%) ( Auto) 0.8, Sodium Level 139, Potassium Level 3.6, Chloride Level 101, Carbon Dioxide Level 29, Anion Gap 9, Blood Urea Nitrogen 14, Creatinine 1.0, Estimat Glomerular Filtration Rate , Glucose Level 158H, Calcium Level 9.6, Magnesium Level 2.2 Current Medications Medications (Trade) Dose Ordered Sig/Adam Route PRN Reason Start Time Stop Time Status Last Admin Dose Admin Acetaminophen (Tylenol) 325 mg Q4HR PRN ORAL Fever/Headache/Mild Pain 06/01/17 18:30 06/29/17 18:29 Albuterol/ Ipratropium (Albuterol/ Ipratropium) 3 ml Q4H PRN HHN Shortness of Breath 06/02/17 14:00 06/05/17 13:59 Amlodipine Besylate (Norvasc) 10 mg DAILY ORAL 06/02/17 09:00 06/29/17 08:59 06/04/17 09:15 Aripiprazole (Abilify) 2 mg DAILY ORAL 06/02/17 09:00 06/29/17 08:59 06/04/17 09:14 Ascorbic Acid (Vitamin C) 500 mg DAILY ORAL 06/02/17 09:00 06/29/17 08:59 06/04/17 09:13 Aspirin (Ecotrin) 81 mg DAILY ORAL 06/02/17 09:00 06/29/17 08:59 06/04/17 09:14 Benzonatate (Tessalon Perles) 100 mg THREE TIMES A DAY ORAL 06/02/17 09:00 06/29/17 08:59 06/04/17 09:14 Clonidine HCl (Catapres Tab) 0.1 mg Q4H PRN ORAL For High Blood Pressure 06/01/17 18:30 06/30/17 18:29 06/04/17 09:13 Diphenhydramine HCl (Benadryl) 25 mg Q8H PRN ORAL Itching 06/02/17 21:45 07/02/17 21:44 06/03/17 22:03 Docusate Sodium (Colace) 100 mg BID ORAL 06/02/17 09:00 06/29/17 08:59 06/04/17 09:14 Duloxetine HCl (Cymbalta) 60 mg DAILY ORAL 06/02/17 09:00 06/29/17 08:59 06/04/17 09:14 Ergocalciferol (Drisdol) 50,000 intlu ONCE A WEEK ORAL 06/04/17 09:00 07/04/17 08:59 06/04/17 09:14 Fluticasone Propionate (Flonase) 1 spray DAILY NASAL 06/02/17 09:00 06/29/17 08:59 06/04/17 09:34 Gabapentin (Neurontin) 100 mg DAILY ORAL 06/02/17 09:00 06/29/17 08:59 06/04/17 09:13 Gabapentin (Neurontin) 200 mg BEDTIME ORAL 06/01/17 21:00 06/29/17 20:59 06/03/17 20:12 Heparin Sodium (Porcine) (Heparin 5000 units/ml) 5,000 units EVERY 12 HOURS SUBQ 06/01/17 21:00 06/29/17 08:59 06/04/17 09:16 Hydralazine HCl (Apresoline) 50 mg EVERY 8 HOURS ORAL 06/01/17 22:00 06/29/17 05:59 06/04/17 05:05 Irbesartan (Avapro) 150 mg DAILY@1100 ORAL 06/03/17 11:00 07/03/17 10:59 06/04/17 11:40 Magnesium Oxide (Mag-Ox 400mg) 400 mg THREE TIMES A DAY ORAL 06/02/17 18:00 07/02/17 17:59 06/04/17 09:15 Metoprolol Succinate (Toprol XL) 100 mg DAILY ORAL 06/03/17 10:00 07/03/17 09:59 06/04/17 09:13 Multivitamins (Multivitamins) 1 tab DAILY ORAL 06/02/17 09:00 06/29/17 08:59 06/04/17 09:14 Oxycodone/ Acetaminophen (Percocet 5-325) 1 tab BID PRN ORAL For Pain 06/01/17 18:32 06/08/17 18:31 Primidone (Mysoline) 250 mg THREE TIMES A DAY ORAL 06/02/17 09:00 06/29/17 08:59 06/04/17 09:15 Promethazine HCl/ Codeine (Phenergan with Codeine) 5 ml Q4H PRN ORAL For Cough 06/02/17 21:45 07/02/17 21:44 06/02/17 22:10 Sitagliptin Phosphate (Januvia) 50 mg DAILY ORAL 06/02/17 09:00 06/29/17 08:59 06/04/17 09:15 Tramadol HCl (Ultram) 50 mg Q6H PRN ORAL For Pain 06/01/17 18:33 06/06/17 18:32 Zinc Sulfate (Zinc Sulfate) 220 mg DAILY ORAL 06/02/17 09:00 06/29/17 08:59 06/04/17 09:13 Zolpidem Tartrate (Ambien) 5 mg QHS ORAL 06/01/17 21:00 06/06/17 20:59 06/03/17 20:12 Braxton (Vanchtein),Adilia MESSINA Jun 04, 2017 12:27
[2017-06-04] MEDS ORDERED: METOPROLOL SUC100 MG ORAL (12:30)
[2017-06-04] MEDS ORDERED: LASIX20 M1 ORAL (12:34)
[2017-06-04 15:26] VITALS: BP 112/41
[2017-06-04 20:00] VITALS: BP 157/58
--- NOTE | 2017-06-04 20:15 | General Progress Note ---
Assessment/Plan Problem List: (1) Diabetes mellitus ICD Codes: E11.9 - Type 2 diabetes mellitus without complications SNOMED: 64784052 (2) HTN (hypertension) ICD Codes: I10 - Essential (primary) hypertension SNOMED: 15025703 (3) Upper respiratory infection ICD Codes: J06.9 - Acute upper respiratory infection, unspecified SNOMED: 00443716 (4) At high risk for aspiration ICD Codes: Z91.89 - Other specified personal risk factors, not elsewhere classified SNOMED: 857107114 (5) Peripheral vascular disease ICD Codes: I73.9 - Peripheral vascular disease, unspecified SNOMED: 113038737 (6) Bronchitis ICD Codes: J40 - Bronchitis, not specified as acute or chronic SNOMED: 17003983 (7) ACS (acute coronary syndrome) ICD Codes: I24.9 - Acute ischemic heart disease, unspecified SNOMED: 641887101 Status: progressing Assessment/Plan afebrile vitals stable htn aspiration risk pna r/o sepsis reviewed chart and med covering for dr amado barber Subjective ROS Limited/Unobtainable: Yes Allergies: Coded Allergies: PENICILLINS (Verified Allergy, Unknown, 05/29/17) SULFA (SULFONAMIDE ANTIBIOTICS) (Verified Allergy, Unknown, 05/29/17) Objective Last 24 Hour Vital Signs Date Time Temp Pulse Resp B/P (MAP) Pulse Ox O2 Delivery O2 Flow Rate FiO2 06/04/17 15:26 97.8 60 19 112/41 98 06/04/17 14:36 129/51 06/04/17 12:03 98.1 54 18 129/51 96 2.0 06/04/17 11:40 165/82 06/04/17 09:15 60 165/82 06/04/17 09:14 Room Air 21 06/04/17 09:14 77 20 Room Air 21 06/04/17 09:13 60 165/82 06/04/17 09:13 165/82 06/04/17 08:00 97.7 60 18 165/82 94 Room Air 06/04/17 05:05 158/97 06/04/17 04:00 97.2 56 21 158/97 93 06/04/17 00:00 97.6 66 20 150/61 96 06/03/17 22:02 138/95 Intake and Output 06/03/17 06/04/17 19:00 07:00 Intake Total 540 ml Output Total 1000 ml Balance 540 ml -1000 ml Intake Oral 540 ml Output Urine Total 1000 ml # Voids 3 # Bowel Movements 1 Laboratory Tests 06/04/17 05:00: White Blood Count 9.0, Red Blood Count 4.07L, Hemoglobin 12.4, Hematocrit 37.4, Mean Corpuscular Volume 92, Mean Corpuscular Hemoglobin 30.5, Mean Corpuscular Hemoglobin Concent 33.2, Red Cell Distribution Width 13.7, Platelet Count 293, Mean Platelet Volume 6.6, Neutrophils (%) (Auto) 61.5, Lymphocytes (%) (Auto) 22.3, Monocytes (%) (Auto) 10.0, Eosinophils (%) (Auto) 5.4H, Basophils (%) ( Auto) 0.8, Sodium Level 139, Potassium Level 3.6, Chloride Level 101, Carbon Dioxide Level 29, Anion Gap 9, Blood Urea Nitrogen 14, Creatinine 1.0, Estimat Glomerular Filtration Rate , Glucose Level 158H, Calcium Level 9.6, Magnesium Level 2.2 Height (Feet): 5 Height (Inches): 0.00 Weight (Pounds): 185 Abdomen: soft Reynold Huertas MD Jun 04, 2017 20:14
[2017-06-04] MEDS: Zolpidem 5mg tab ORAL SCH (21:15)
[2017-06-05] VITALS: BP 154/51
[2017-06-05 04:00] VITALS: BP 136/55
[2017-06-05] MEDS: HydrALAZINE 50mg tab ORAL SCH ×3 (05:49→21:19)
[2017-06-05 08:00] VITALS: BP 141/61
[2017-06-05] MEDS: Zinc Sulfate 220mg cap ORAL SCH (09:02)
[2017-06-05] MEDS: Metoprolol Succinate XL 100mg tab ORAL SCH (09:02)
[2017-06-05] MEDS: Benzonatate 100mg Perles ORAL SCH ×3 (09:02→17:24)
[2017-06-05] MEDS: Ascorbic Acid 500mg tab ORAL SCH (09:02)
[2017-06-05] MEDS: Aspirin EC 81mg tab ORAL SCH (09:03)
[2017-06-05] MEDS: Primidone 250mg tab ORAL SCH ×3 (09:03→17:23)
[2017-06-05] MEDS: ARIPiprazole 2mg tab ORAL SCH (09:03)
[2017-06-05] MEDS: Docusate 100mg cap ORAL SCH ×2 (09:03→17:24)
[2017-06-05] MEDS: Flonase Nasal Inhaler 16gm NASAL SCH (09:03)
[2017-06-05] MEDS: Magnesium Oxide 400mg tab ORAL SCH ×3 (09:03→17:24)
[2017-06-05] MEDS: sitaGLIPtin 50mg tab ORAL SCH (09:03)
[2017-06-05] MEDS: DULoxetine 30mg cap ORAL SCH (09:03)
[2017-06-05] MEDS: Heparin 5000 units/ml inj SUBQ SCH ×2 (09:05→21:17)
--- NOTE | 2017-06-05 10:15 | General Progress Note ---
Assessment/Plan Problem List: (1) Diabetes mellitus ICD Codes: E11.9 - Type 2 diabetes mellitus without complications SNOMED: 11966671 (2) HTN (hypertension) ICD Codes: I10 - Essential (primary) hypertension SNOMED: 79679595 (3) Upper respiratory infection ICD Codes: J06.9 - Acute upper respiratory infection, unspecified SNOMED: 88583787 (4) At high risk for aspiration ICD Codes: Z91.89 - Other specified personal risk factors, not elsewhere classified SNOMED: 041144883 (5) Peripheral vascular disease ICD Codes: I73.9 - Peripheral vascular disease, unspecified SNOMED: 019294978 (6) Bronchitis ICD Codes: J40 - Bronchitis, not specified as acute or chronic SNOMED: 90890361 (7) ACS (acute coronary syndrome) ICD Codes: I24.9 - Acute ischemic heart disease, unspecified SNOMED: 141949311 Status: stable Assessment/Plan no wheezing dm and htn pna pvd afebrile reviewed chart and med covering for dr amado barber Subjective ROS Limited/Unobtainable: Yes Allergies: Coded Allergies: PENICILLINS (Verified Allergy, Unknown, 05/29/17) SULFA (SULFONAMIDE ANTIBIOTICS) (Verified Allergy, Unknown, 05/29/17) Objective Last 24 Hour Vital Signs Date Time Temp Pulse Resp B/P (MAP) Pulse Ox O2 Delivery O2 Flow Rate FiO2 06/05/17 09:03 66 141/61 06/05/17 09:02 66 141/61 06/05/17 08:25 70 20 Room Air 21 06/05/17 08:25 Room Air 21 06/05/17 08:00 96.8 66 20 141/61 94 06/05/17 05:49 136/55 06/05/17 04:00 97.7 59 19 136/55 95 Nasal Cannula 06/05/17 00:00 97.3 59 20 154/51 96 Nasal Cannula 06/04/17 21:16 157/58 06/04/17 20:00 97.2 60 18 157/58 97 Room Air 06/04/17 19:10 Room Air 21 06/04/17 19:10 79 20 Room Air 21 06/04/17 15:26 97.8 60 19 112/41 98 06/04/17 14:36 129/51 06/04/17 12:03 98.1 54 18 129/51 96 2.0 06/04/17 11:40 165/82 Intake and Output 06/04/17 06/05/17 19:00 07:00 Intake Total 500 ml Output Total 1000 ml 200 ml Balance -500 ml -200 ml Intake Oral 500 ml Output Urine Total 1000 ml 200 ml # Bowel Movements 1 1 Height (Feet): 5 Height (Inches): 0.00 Weight (Pounds): 185 General Appearance: confused Respiratory/Chest: lungs clear Reynold Huertas MD Jun 05, 2017 10:15
--- NOTE | 2017-06-05 10:36 | Infectious Diseases Prog Note ---
Assessment/Plan Assessment/Plan A; Leg cellulitis s/p RX Bronchitis Venous stasis DM Obesity PCN allergy VRE colonization P: observe off antibiotic agree with discharge Subjective ROS Limited/Unobtainable: Yes Allergies: Coded Allergies: PENICILLINS (Verified Allergy, Unknown, 05/29/17) SULFA (SULFONAMIDE ANTIBIOTICS) (Verified Allergy, Unknown, 05/29/17) Objective Vital Signs Last 24 Hour Vital Signs Date Time Temp Pulse Resp B/P (MAP) Pulse Ox O2 Delivery O2 Flow Rate FiO2 06/05/17 09:03 66 141/61 06/05/17 09:02 66 141/61 06/05/17 08:25 70 20 Room Air 21 06/05/17 08:25 Room Air 21 06/05/17 08:00 96.8 66 20 141/61 94 06/05/17 05:49 136/55 06/05/17 04:00 97.7 59 19 136/55 95 Nasal Cannula 06/05/17 00:00 97.3 59 20 154/51 96 Nasal Cannula 06/04/17 21:16 157/58 06/04/17 20:00 97.2 60 18 157/58 97 Room Air 06/04/17 19:10 Room Air 21 06/04/17 19:10 79 20 Room Air 21 06/04/17 15:26 97.8 60 19 112/41 98 06/04/17 14:36 129/51 06/04/17 12:03 98.1 54 18 129/51 96 2.0 06/04/17 11:40 165/82 Height (Feet): 5 Height (Inches): 0.00 Weight (Pounds): 185 General Appearance: no acute distress HEENT: mucous membranes moist Respiratory/Chest: lungs clear Cardiovascular: normal rate Abdomen: soft, non tender Extremities: no edema Skin: other - skin changes in legs Neurologic/Psychiatric: other - sleeping Current Medications Medications (Trade) Dose Ordered Sig/Adam Route PRN Reason Start Time Stop Time Status Last Admin Dose Admin Acetaminophen (Tylenol) 325 mg Q4HR PRN ORAL Fever/Headache/Mild Pain 06/01/17 18:30 06/29/17 18:29 Albuterol/ Ipratropium (Albuterol/ Ipratropium) 3 ml Q4H PRN HHN Shortness of Breath 06/02/17 14:00 06/05/17 13:59 Amlodipine Besylate (Norvasc) 10 mg DAILY ORAL 06/02/17 09:00 06/29/17 08:59 06/05/17 09:03 Aripiprazole (Abilify) 2 mg DAILY ORAL 06/02/17 09:00 06/29/17 08:59 06/05/17 09:03 Ascorbic Acid (Vitamin C) 500 mg DAILY ORAL 06/02/17 09:00 06/29/17 08:59 06/05/17 09:02 Aspirin (Ecotrin) 81 mg DAILY ORAL 06/02/17 09:00 06/29/17 08:59 06/05/17 09:03 Benzonatate (Tessalon Perles) 100 mg THREE TIMES A DAY ORAL 06/02/17 09:00 06/29/17 08:59 06/05/17 09:02 Clonidine HCl (Catapres Tab) 0.1 mg Q4H PRN ORAL For High Blood Pressure 06/01/17 18:30 06/30/17 18:29 06/04/17 09:13 Diphenhydramine HCl (Benadryl) 25 mg Q8H PRN ORAL Itching 06/02/17 21:45 07/02/17 21:44 06/04/17 21:15 Docusate Sodium (Colace) 100 mg BID ORAL 06/02/17 09:00 06/29/17 08:59 06/05/17 09:03 Duloxetine HCl (Cymbalta) 60 mg DAILY ORAL 06/02/17 09:00 06/29/17 08:59 06/05/17 09:03 Ergocalciferol (Drisdol) 50,000 intlu ONCE A WEEK ORAL 06/04/17 09:00 07/04/17 08:59 06/04/17 09:14 Fluticasone Propionate (Flonase) 1 spray DAILY NASAL 06/02/17 09:00 06/29/17 08:59 06/05/17 09:03 Gabapentin (Neurontin) 100 mg DAILY ORAL 06/02/17 09:00 06/29/17 08:59 06/05/17 09:02 Gabapentin (Neurontin) 200 mg BEDTIME ORAL 06/01/17 21:00 06/29/17 20:59 06/04/17 21:15 Heparin Sodium (Porcine) (Heparin 5000 units/ml) 5,000 units EVERY 12 HOURS SUBQ 06/01/17 21:00 06/29/17 08:59 06/05/17 09:05 Hydralazine HCl (Apresoline) 50 mg EVERY 8 HOURS ORAL 06/01/17 22:00 06/29/17 05:59 06/05/17 05:49 Irbesartan (Avapro) 150 mg DAILY@1100 ORAL 06/03/17 11:00 07/03/17 10:59 06/04/17 11:40 Magnesium Oxide (Mag-Ox 400mg) 400 mg THREE TIMES A DAY ORAL 06/02/17 18:00 07/02/17 17:59 06/05/17 09:03 Metoprolol Succinate (Toprol XL) 100 mg DAILY ORAL 06/03/17 10:00 07/03/17 09:59 06/05/17 09:02 Multivitamins (Multivitamins) 1 tab DAILY ORAL 06/02/17 09:00 06/29/17 08:59 06/05/17 09:03 Oxycodone/ Acetaminophen (Percocet 5-325) 1 tab BID PRN ORAL For Pain 06/01/17 18:32 06/08/17 18:31 Primidone (Mysoline) 250 mg THREE TIMES A DAY ORAL 06/02/17 09:00 06/29/17 08:59 06/05/17 09:03 Promethazine HCl/ Codeine (Phenergan with Codeine) 5 ml Q4H PRN ORAL For Cough 06/02/17 21:45 07/02/17 21:44 06/02/17 22:10 Sitagliptin Phosphate (Januvia) 50 mg DAILY ORAL 06/02/17 09:00 06/29/17 08:59 06/05/17 09:03 Tramadol HCl (Ultram) 50 mg Q6H PRN ORAL For Pain 06/01/17 18:33 06/06/17 18:32 Zinc Sulfate (Zinc Sulfate) 220 mg DAILY ORAL 06/02/17 09:00 06/29/17 08:59 06/05/17 09:02 Zolpidem Tartrate (Ambien) 5 mg QHS ORAL 06/01/17 21:00 06/06/17 20:59 06/04/17 21:15 DHARA HANCOCK Jun 05, 2017 10:36
[2017-06-05 12:00] VITALS: BP 151/62
--- NOTE | 2017-06-05 12:28 | Pulmonology Progress Note ---
Assessment/Plan Assessment/Plan ASSESSMENT pleuritic chest pain acute bronchitis aspiration risk obesity DM HTN urgency PAD moderate diastolic dysfunction CAD with hx of PTCA venous insufficiency with venous stasis bilateral leg cellulitis fluid overload and peripheral edema due to diastolic dysfunction/diastolic CHF PLAN OF CARE [facility] floor ( transferred from [facility]) cardio follows serial troponin negative ECG no acute ischemic changes, therefore pt was ruled out for acute IA chest pain likely pleuritic 2 to acute bronchitis O2 HHN prn a/tussive prn empiric abx, ID follows, sputum cx, blood cx and influenza screen all negative strict aspiration/reflux precautions diet as tolerated DVT prophylaxis Bowel regimen pain management ECHO with pEF 70-75% and RVSP of 31,as well as moderate , diastolic dysfunction grade 2, peripheral edema and fluid overload due to diastolic dysfunction/diastolic HF gentle diuresis,monitor cardiorenal parameters, volumes CXR in am initially with HTN urgency, BP management as per cardio, currently controlled 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 for unknown reason Objective Last 24 Hour Vital Signs Date Time Temp Pulse Resp B/P (MAP) Pulse Ox O2 Delivery O2 Flow Rate FiO2 06/05/17 12:00 97.5 69 20 151/62 94 06/05/17 09:03 66 141/61 06/05/17 09:02 66 141/61 06/05/17 08:25 70 20 Room Air 21 06/05/17 08:25 Room Air 21 06/05/17 08:00 96.8 66 20 141/61 94 06/05/17 05:49 136/55 06/05/17 04:00 97.7 59 19 136/55 95 Nasal Cannula 06/05/17 00:00 97.3 59 20 154/51 96 Nasal Cannula 06/04/17 21:16 157/58 06/04/17 20:00 97.2 60 18 157/58 97 Room Air 06/04/17 19:10 Room Air 21 06/04/17 19:10 79 20 Room Air 21 06/04/17 15:26 97.8 60 19 112/41 98 06/04/17 14:36 129/51 Intake and Output 06/04/17 06/05/17 19:00 07:00 Intake Total 500 ml Output Total 1000 ml 200 ml Balance -500 ml -200 ml Intake Oral 500 ml Output Urine Total 1000 ml 200 ml # Bowel Movements 1 1 Objective General Appearance: no acute distress, frail elderly bedridden female in NAD HEENT: normocephalic, atraumatic, anicteric, mucous membranes moist Respiratory/Chest: chest wall non-tender, no accessory muscle use, decreased breath sounds, Cardiovascular: normal peripheral pulses, normal rate - irregualr Abdomen: soft, non tender, non distended Extremities: other - +1 edema BUE and BLE Neurologic/Psychiatric: abnormal gait, alert, responsive Musculoskeletal: atrophy - BLE Current Medications Medications (Trade) Dose Ordered Sig/Adam Route PRN Reason Start Time Stop Time Status Last Admin Dose Admin Acetaminophen (Tylenol) 325 mg Q4HR PRN ORAL Fever/Headache/Mild Pain 06/01/17 18:30 06/29/17 18:29 Albuterol/ Ipratropium (Albuterol/ Ipratropium) 3 ml Q4H PRN HHN Shortness of Breath 06/02/17 14:00 06/05/17 13:59 Amlodipine Besylate (Norvasc) 10 mg DAILY ORAL 06/02/17 09:00 06/29/17 08:59 06/05/17 09:03 Aripiprazole (Abilify) 2 mg DAILY ORAL 06/02/17 09:00 06/29/17 08:59 06/05/17 09:03 Ascorbic Acid (Vitamin C) 500 mg DAILY ORAL 06/02/17 09:00 06/29/17 08:59 06/05/17 09:02 Aspirin (Ecotrin) 81 mg DAILY ORAL 06/02/17 09:00 06/29/17 08:59 06/05/17 09:03 Benzonatate (Tessalon Perles) 100 mg THREE TIMES A DAY ORAL 06/02/17 09:00 06/29/17 08:59 06/05/17 09:02 Clonidine HCl (Catapres Tab) 0.1 mg Q4H PRN ORAL For High Blood Pressure 06/01/17 18:30 06/30/17 18:29 06/04/17 09:13 Diphenhydramine HCl (Benadryl) 25 mg Q8H PRN ORAL Itching 06/02/17 21:45 07/02/17 21:44 06/04/17 21:15 Docusate Sodium (Colace) 100 mg BID ORAL 06/02/17 09:00 06/29/17 08:59 06/05/17 09:03 Duloxetine HCl (Cymbalta) 60 mg DAILY ORAL 06/02/17 09:00 06/29/17 08:59 06/05/17 09:03 Ergocalciferol (Drisdol) 50,000 intlu ONCE A WEEK ORAL 06/04/17 09:00 07/04/17 08:59 06/04/17 09:14 Fluticasone Propionate (Flonase) 1 spray DAILY NASAL 06/02/17 09:00 06/29/17 08:59 06/05/17 09:03 Gabapentin (Neurontin) 100 mg DAILY ORAL 06/02/17 09:00 06/29/17 08:59 06/05/17 09:02 Gabapentin (Neurontin) 200 mg BEDTIME ORAL 06/01/17 21:00 06/29/17 20:59 06/04/17 21:15 Heparin Sodium (Porcine) (Heparin 5000 units/ml) 5,000 units EVERY 12 HOURS SUBQ 06/01/17 21:00 06/29/17 08:59 06/05/17 09:05 Hydralazine HCl (Apresoline) 50 mg EVERY 8 HOURS ORAL 06/01/17 22:00 06/29/17 05:59 06/05/17 05:49 Irbesartan (Avapro) 150 mg DAILY@1100 ORAL 06/03/17 11:00 07/03/17 10:59 06/04/17 11:40 Magnesium Oxide (Mag-Ox 400mg) 400 mg THREE TIMES A DAY ORAL 06/02/17 18:00 07/02/17 17:59 06/05/17 09:03 Metoprolol Succinate (Toprol XL) 100 mg DAILY ORAL 06/03/17 10:00 07/03/17 09:59 06/05/17 09:02 Multivitamins (Multivitamins) 1 tab DAILY ORAL 06/02/17 09:00 06/29/17 08:59 06/05/17 09:03 Oxycodone/ Acetaminophen (Percocet 5-325) 1 tab BID PRN ORAL For Pain 06/01/17 18:32 06/08/17 18:31 Primidone (Mysoline) 250 mg THREE TIMES A DAY ORAL 06/02/17 09:00 06/29/17 08:59 06/05/17 09:03 Promethazine HCl/ Codeine (Phenergan with Codeine) 5 ml Q4H PRN ORAL For Cough 06/02/17 21:45 07/02/17 21:44 06/02/17 22:10 Sitagliptin Phosphate (Januvia) 50 mg DAILY ORAL 06/02/17 09:00 06/29/17 08:59 06/05/17 09:03 Tramadol HCl (Ultram) 50 mg Q6H PRN ORAL For Pain 06/01/17 18:33 06/06/17 18:32 Zinc Sulfate (Zinc Sulfate) 220 mg DAILY ORAL 06/02/17 09:00 06/29/17 08:59 06/05/17 09:02 Zolpidem Tartrate (Ambien) 5 mg QHS ORAL 06/01/17 21:00 06/06/17 20:59 06/04/17 21:15 [facility] NP Jun 05, 2017 12:28
[2017-06-05] MEDS ORDERED: traMADol 50mg tab ORAL PRN (12:33)
[2017-06-05] MEDS ORDERED: Albuterol/Ipratropium 3ml neb HHN PRN (12:36)
[2017-06-05] MEDS: Irbesartan 150mg tablet ORAL SCH (12:45)
[2017-06-05] MEDS ORDERED: oxyCODONE HCL/Acetaminophen 5/325mg ORAL PRN (13:00)
--- NOTE | 2017-06-05 13:20 | Cardiology Progress Note ---
Assessment/Plan Assessment/Plan 1. Pleuritic chest pain, no ischemia on the ECG. No wall motion abnormalities on the echo. Trop are all negative. Continue medical therapy. 2. Hx of CAD, s/p percutaneous coronary intervention, stable. 3. Moderate . 4. Dyslipidemia, target LDL for this patient is less than 70 mg/dL, continue crestor 40 mg daily. 5. History of diabetes mellitus. The patient will require to be on combination of aspirin and statin. 6. Accelerated hypertension, increase Irbesartan to 300mg daily. Subjective Subjective Clinically the same from the cardiac standpoint. Denies chest pain or SOB. Objective Last 24 Hour Vital Signs Date Time Temp Pulse Resp B/P (MAP) Pulse Ox O2 Delivery O2 Flow Rate FiO2 06/05/17 13:02 151/62 06/05/17 12:45 151/62 06/05/17 12:00 97.5 69 20 151/62 94 06/05/17 09:03 66 141/61 06/05/17 09:02 66 141/61 06/05/17 08:25 70 20 Room Air 21 06/05/17 08:25 Room Air 21 06/05/17 08:00 96.8 66 20 141/61 94 06/05/17 05:49 136/55 06/05/17 04:00 97.7 59 19 136/55 95 Nasal Cannula 06/05/17 00:00 97.3 59 20 154/51 96 Nasal Cannula 06/04/17 21:16 157/58 06/04/17 20:00 97.2 60 18 157/58 97 Room Air 06/04/17 19:10 Room Air 21 06/04/17 19:10 79 20 Room Air 21 06/04/17 15:26 97.8 60 19 112/41 98 06/04/17 14:36 129/51 Intake and Output 06/04/17 06/05/17 19:00 07:00 Intake Total 500 ml Output Total 1000 ml 200 ml Balance -500 ml -200 ml Intake Oral 500 ml Output Urine Total 1000 ml 200 ml # Bowel Movements 1 1 2D Echo: LVEF 70%, Mod LAE, Mod JERO 1.2, Garde I LVDD, RVSP 31 mmHg Objective HEENT: Atraumatic and normocephalic. Anicteric. Pupils are equal, round, and reactive to light and accommodation. Extraocular muscles intact. NECK: JVP less than 5 cm. No carotid bruits. Carotid upstrokes 2+ bilaterally. CARDIOVASCULAR: Normal S1 and S2. Irregular rhythm. A 2/6 ejection systolic murmur at the left sternal border. PMI is at fourth intercostal space at the midclavicular line. LUNGS: Clear to auscultation bilaterally. ABDOMEN: Soft, nontender, and nondistended. No hepatosplenomegaly. Positive bowel sounds. EXTREMITIES: No evidence of edema, clubbing, or cyanosis. LEANN DAVIS Jun 05, 2017 13:20
[2017-06-05 16:00] VITALS: BP 129/56
[2017-06-05 20:00] VITALS: BP 155/80
[2017-06-05] MEDS ORDERED: Zolpidem 5mg tab ORAL SCH (21:00)
[2017-06-06 00:37] VITALS: BP 180/68
[2017-06-06 04:21] VITALS: BP 150/60
[2017-06-06] MEDS: HydrALAZINE 50mg tab ORAL SCH ×2 (05:19→15:02)
[2017-06-06 08:00] VITALS: BP 151/60
[2017-06-06] MEDS: Benzonatate 100mg Perles ORAL SCH ×2 (09:22→12:36)
[2017-06-06] MEDS: Aspirin EC 81mg tab ORAL SCH (09:22)
[2017-06-06] MEDS: DULoxetine 30mg cap ORAL SCH (09:22)
[2017-06-06] MEDS: Zinc Sulfate 220mg cap ORAL SCH (09:22)
[2017-06-06] MEDS: sitaGLIPtin 50mg tab ORAL SCH (09:22)
[2017-06-06] MEDS: Primidone 250mg tab ORAL SCH ×2 (09:22→12:36)
[2017-06-06] MEDS: ARIPiprazole 2mg tab ORAL SCH (09:22)
[2017-06-06] MEDS: Magnesium Oxide 400mg tab ORAL SCH ×2 (09:23→12:36)
[2017-06-06] MEDS: Docusate 100mg cap ORAL SCH (09:23)
[2017-06-06] MEDS: Ascorbic Acid 500mg tab ORAL SCH (09:23)
[2017-06-06] MEDS: Metoprolol Succinate XL 100mg tab ORAL SCH (09:24)
[2017-06-06] MEDS: Heparin 5000 units/ml inj SUBQ SCH (09:40)
[2017-06-06] MEDS: Flonase Nasal Inhaler 16gm NASAL SCH (09:45)
--- NOTE | 2017-06-06 10:00 | Pulmonology Progress Note ---
Assessment/Plan Assessment/Plan ASSESSMENT pleuritic chest pain acute bronchitis aspiration risk obesity DM HTN urgency PAD moderate diastolic dysfunction CAD with hx of PTCA venous insufficiency with venous stasis bilateral leg cellulitis fluid overload and peripheral edema due to diastolic dysfunction/diastolic CHF PLAN OF CARE [facility] floor ( transferred from [facility]) cardio follows serial troponin negative ECG no acute ischemic changes, therefore pt was ruled out for acute [place] chest pain likely pleuritic 2 to acute bronchitis O2 HHN prn a/tussive prn empiric abx, ID follows, sputum cx, blood cx and influenza screen all negative strict aspiration/reflux precautions diet as tolerated DVT prophylaxis Bowel regimen pain management ECHO with pEF 70-75% and RVSP of 31,as well as moderate , diastolic dysfunction grade 2, peripheral edema and fluid overload due to diastolic dysfunction/diastolic HF gentle diuresis,monitor cardiorenal parameters, volumes CXR in am initially with HTN urgency, BP management as per cardio, currently controlled 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 L ankle X ray no acute fracture Arterial duplex pending vasc surgeon seen and evaluated DNR/DNI status dc to assisted living ( where she resided before) with services to follow as per PMD order if ambulating with PT well case discussed and evaluated by supervising physician Subjective Allergies: Coded Allergies: PENICILLINS (Verified Allergy, Unknown, 05/29/17) SULFA (SULFONAMIDE ANTIBIOTICS) (Verified Allergy, Unknown, 05/29/17) Subjective afebrile no leukocytosis pulse ox stable on RA still occasional coughing, no wheezing no chest pain, no SOB Objective Last 24 Hour Vital Signs Date Time Temp Pulse Resp B/P (MAP) Pulse Ox O2 Delivery O2 Flow Rate FiO2 06/06/17 09:24 92 151/60 06/06/17 09:23 92 151/60 06/06/17 08:00 97.9 92 19 151/60 92 06/06/17 07:55 63 20 Room Air 21 06/06/17 05:19 150/60 06/06/17 04:21 98.5 62 17 150/60 91 06/06/17 00:37 98.2 65 17 180/68 93 06/05/17 23:28 180/68 06/05/17 21:19 129/56 06/05/17 20:00 98.4 67 18 155/80 94 06/05/17 16:41 Room Air 06/05/17 16:00 98.1 67 19 129/56 92 06/05/17 13:02 151/62 06/05/17 12:45 151/62 06/05/17 12:01 Room Air 06/05/17 12:00 97.5 69 20 151/62 94 Intake and Output 06/05/17 06/06/17 19:00 07:00 Intake Total 360 ml 240 ml Output Total 575 ml 400 ml Balance -215 ml -160 ml Intake Oral 360 ml 240 ml Output Urine Total 575 ml 400 ml # Voids 2 # Bowel Movements 1 1 Objective General Appearance: no acute distress, frail elderly bedridden female in NAD HEENT: normocephalic, atraumatic, anicteric, mucous membranes moist Respiratory/Chest: chest wall non-tender, no accessory muscle use, decreased breath sounds, Cardiovascular: normal peripheral pulses, normal rate - irregualr Abdomen: soft, non tender, non distended Extremities: other - +1 edema BUE and BLE Neurologic/Psychiatric: abnormal gait, alert, responsive Musculoskeletal: atrophy - BLE Current Medications Medications (Trade) Dose Ordered Sig/Adam Route PRN Reason Start Time Stop Time Status Last Admin Dose Admin Acetaminophen (Tylenol) 325 mg Q4HR PRN ORAL Fever/Headache/Mild Pain 06/01/17 18:30 06/29/17 18:29 Albuterol/ Ipratropium (Albuterol/ Ipratropium) 3 ml Q4H PRN HHN Shortness of Breath 06/05/17 12:36 06/08/17 12:35 Amlodipine Besylate (Norvasc) 10 mg DAILY ORAL 06/02/17 09:00 06/29/17 08:59 06/06/17 09:23 Aripiprazole (Abilify) 2 mg DAILY ORAL 06/02/17 09:00 06/29/17 08:59 06/06/17 09:22 Ascorbic Acid (Vitamin C) 500 mg DAILY ORAL 06/02/17 09:00 06/29/17 08:59 06/06/17 09:23 Aspirin (Ecotrin) 81 mg DAILY ORAL 06/02/17 09:00 06/29/17 08:59 06/06/17 09:22 Benzonatate (Tessalon Perles) 100 mg THREE TIMES A DAY ORAL 06/02/17 09:00 06/29/17 08:59 06/06/17 09:22 Clonidine HCl (Catapres Tab) 0.1 mg Q4H PRN ORAL For High Blood Pressure 06/01/17 18:30 06/30/17 18:29 06/05/17 23:28 Diphenhydramine HCl (Benadryl) 25 mg Q8H PRN ORAL Itching 06/02/17 21:45 07/02/17 21:44 06/05/17 21:18 Docusate Sodium (Colace) 100 mg BID ORAL 06/02/17 09:00 06/29/17 08:59 06/06/17 09:23 Duloxetine HCl (Cymbalta) 60 mg DAILY ORAL 06/02/17 09:00 06/29/17 08:59 06/06/17 09:22 Ergocalciferol (Drisdol) 50,000 intlu ONCE A WEEK ORAL 06/04/17 09:00 07/04/17 08:59 06/04/17 09:14 Fluticasone Propionate (Flonase) 1 spray DAILY NASAL 06/02/17 09:00 06/29/17 08:59 06/06/17 09:45 Gabapentin (Neurontin) 100 mg DAILY ORAL 06/02/17 09:00 06/29/17 08:59 06/06/17 09:23 Gabapentin (Neurontin) 200 mg BEDTIME ORAL 06/01/17 21:00 06/29/17 20:59 06/05/17 21:19 Heparin Sodium (Porcine) (Heparin 5000 units/ml) 5,000 units EVERY 12 HOURS SUBQ 06/01/17 21:00 06/29/17 08:59 06/06/17 09:40 Hydralazine HCl (Apresoline) 50 mg EVERY 8 HOURS ORAL 06/01/17 22:00 06/29/17 05:59 06/06/17 05:19 Irbesartan (Avapro) 300 mg DAILY@1100 ORAL 06/06/17 11:00 07/06/17 10:59 Magnesium Oxide (Mag-Ox 400mg) 400 mg THREE TIMES A DAY ORAL 06/02/17 18:00 07/02/17 17:59 06/06/17 09:23 Metoprolol Succinate (Toprol XL) 100 mg DAILY ORAL 06/03/17 10:00 07/03/17 09:59 06/06/17 09:24 Multivitamins (Multivitamins) 1 tab DAILY ORAL 06/02/17 09:00 06/29/17 08:59 06/06/17 09:23 Oxycodone/ Acetaminophen (Percocet 5-325) 1 tab BID PRN ORAL Severe Pain (Pain Scale 7-10) 06/05/17 13:00 06/12/17 23:59 Primidone (Mysoline) 250 mg THREE TIMES A DAY ORAL 06/02/17 09:00 06/29/17 08:59 06/06/17 09:22 Promethazine HCl/ Codeine (Phenergan with Codeine) 5 ml Q4H PRN ORAL For Cough 06/02/17 21:45 07/02/17 21:44 06/02/17 22:10 Sitagliptin Phosphate (Januvia) 50 mg DAILY ORAL 06/02/17 09:00 06/29/17 08:59 06/06/17 09:22 Tramadol HCl (Ultram) 50 mg Q6H PRN ORAL Moderate Pain (Pain Scale 4-6) 06/05/17 12:33 06/10/17 23:59 Zinc Sulfate (Zinc Sulfate) 220 mg DAILY ORAL 06/02/17 09:00 06/29/17 08:59 06/06/17 09:22 Zolpidem Tartrate (Ambien) 5 mg QHS ORAL 06/05/17 21:00 06/10/17 23:59 06/05/17 21:19 Adilia Braxton NP ([facility]) Jun 06, 2017 10:00
[2017-06-06 10:50] LABS: BASOPHILS % (AUTO) 1.1 % (0.0-2.0); EOSINOPHILS % (AUTO) 4.3 % (0.0-3.0); HEMATOCRIT 37.1 % (37.0-47.0); HEMOGLOBIN 12.3 G/DL (12.0-16.0); LYMPHOCYTES % (AUTO) 20.9 % (20.0-45.0); MEAN CORPUSCULAR VOLUME 92 FL (80-99); MONOCYTES % (AUTO) 8.6 % (1.0-10.0); NEUTROPHILS % (AUTO) 65.1 % (45.0-75.0); PLATELET COUNT 337 K/UL (150-450); RED BLOOD COUNT 4.03 M/UL (4.20-5.40); RED CELL DISTRIBUTION WIDTH 14.3 % (11.6-14.8); WHITE BLOOD COUNT 10.4 K/UL (4.8-10.8)
[2017-06-06 10:55] LABS: ANION GAP 5 mmol/L (5-15); BLOOD UREA NITROGEN 21 mg/dL (7-18); CALCIUM 8.6 MG/DL (8.5-10.1); CARBON DIOXIDE 32 MMOL/L (21-32); CHLORIDE 103 MMOL/L (98-107); CREATININE 1.1 MG/DL (0.55-1.30); POTASSIUM 3.8 MMOL/L (3.5-5.1); SODIUM 140 MMOL/L (136-145)
[2017-06-06] MEDS ORDERED: Irbesartan 150mg tablet ORAL SCH (11:00)
--- NOTE | 2017-06-06 11:09 | Infectious Diseases Prog Note ---
Assessment/Plan Assessment/Plan A; Leg cellulitis s/p RX Bronchitis Venous stasis DM Obesity PCN allergy VRE colonization P: observe off antibiotic agree with discharge Subjective ROS Limited/Unobtainable: Yes Respiratory: Reports: dry cough Musculoskeletal: Reports: no symptoms Allergies: Coded Allergies: PENICILLINS (Verified Allergy, Unknown, 05/29/17) SULFA (SULFONAMIDE ANTIBIOTICS) (Verified Allergy, Unknown, 05/29/17) Objective Vital Signs Last 24 Hour Vital Signs Date Time Temp Pulse Resp B/P (MAP) Pulse Ox O2 Delivery O2 Flow Rate FiO2 06/06/17 09:24 92 151/60 06/06/17 09:23 92 151/60 06/06/17 08:00 97.9 92 19 151/60 92 06/06/17 07:55 63 20 Room Air 21 06/06/17 05:19 150/60 06/06/17 04:21 98.5 62 17 150/60 91 06/06/17 00:37 98.2 65 17 180/68 93 06/05/17 23:28 180/68 06/05/17 21:19 129/56 06/05/17 20:00 98.4 67 18 155/80 94 06/05/17 16:41 Room Air 06/05/17 16:00 98.1 67 19 129/56 92 06/05/17 13:02 151/62 06/05/17 12:45 151/62 06/05/17 12:01 Room Air 06/05/17 12:00 97.5 69 20 151/62 94 Height (Feet): 5 Height (Inches): 0.00 Weight (Pounds): 185 General Appearance: no acute distress HEENT: mucous membranes moist Respiratory/Chest: lungs clear Cardiovascular: normal rate Abdomen: soft, non tender Extremities: other - edema of legs Skin: other - chronic skin changes of legs Neurologic/Psychiatric: alert, responsive Laboratory Tests Test 06/06/17 10:25 White Blood Count 10.4 K/UL (4.8-10.8) Red Blood Count 4.03 M/UL (4.20-5.40) L Hemoglobin 12.3 G/DL (12.0-16.0) Hematocrit 37.1 % (37.0-47.0) Mean Corpuscular Volume 92 FL (80-99) Mean Corpuscular Hemoglobin 30.4 PG (27.0-31.0) Mean Corpuscular Hemoglobin Concent 33.0 G/DL (32.0-36.0) Red Cell Distribution Width 14.3 % (11.6-14.8) Platelet Count 337 K/UL (150-450) Mean Platelet Volume 7.2 FL (6.5-10.1) Neutrophils (%) (Auto) 65.1 % (45.0-75.0) Lymphocytes (%) (Auto) 20.9 % (20.0-45.0) Monocytes (%) (Auto) 8.6 % (1.0-10.0) Eosinophils (%) (Auto) 4.3 % (0.0-3.0) H Basophils (%) (Auto) 1.1 % (0.0-2.0) Sodium Level 140 MMOL/L (136-145) Potassium Level 3.8 MMOL/L (3.5-5.1) Chloride Level 103 MMOL/L (98-107) Carbon Dioxide Level 32 MMOL/L (21-32) Anion Gap 5 mmol/L (5-15) Blood Urea Nitrogen 21 mg/dL (7-18) H Creatinine 1.1 MG/DL (0.55-1.30) Estimat Glomerular Filtration Rate mL/min (>60) Glucose Level 187 MG/DL (74-106) H Calcium Level 8.6 MG/DL (8.5-10.1) Current Medications Medications (Trade) Dose Ordered Sig/Adam Route PRN Reason Start Time Stop Time Status Last Admin Dose Admin Acetaminophen (Tylenol) 325 mg Q4HR PRN ORAL Fever/Headache/Mild Pain 06/01/17 18:30 06/29/17 18:29 Albuterol/ Ipratropium (Albuterol/ Ipratropium) 3 ml Q4H PRN HHN Shortness of Breath 06/05/17 12:36 06/08/17 12:35 Amlodipine Besylate (Norvasc) 10 mg DAILY ORAL 06/02/17 09:00 06/29/17 08:59 06/06/17 09:23 Aripiprazole (Abilify) 2 mg DAILY ORAL 06/02/17 09:00 06/29/17 08:59 06/06/17 09:22 Ascorbic Acid (Vitamin C) 500 mg DAILY ORAL 06/02/17 09:00 06/29/17 08:59 06/06/17 09:23 Aspirin (Ecotrin) 81 mg DAILY ORAL 06/02/17 09:00 06/29/17 08:59 06/06/17 09:22 Benzonatate (Tessalon Perles) 100 mg THREE TIMES A DAY ORAL 06/02/17 09:00 06/29/17 08:59 06/06/17 09:22 Clonidine HCl (Catapres Tab) 0.1 mg Q4H PRN ORAL For High Blood Pressure 06/01/17 18:30 06/30/17 18:29 06/05/17 23:28 Diphenhydramine HCl (Benadryl) 25 mg Q8H PRN ORAL Itching 06/02/17 21:45 07/02/17 21:44 06/05/17 21:18 Docusate Sodium (Colace) 100 mg BID ORAL 06/02/17 09:00 06/29/17 08:59 06/06/17 09:23 Duloxetine HCl (Cymbalta) 60 mg DAILY ORAL 06/02/17 09:00 06/29/17 08:59 06/06/17 09:22 Ergocalciferol (Drisdol) 50,000 intlu ONCE A WEEK ORAL 06/04/17 09:00 07/04/17 08:59 06/04/17 09:14 Fluticasone Propionate (Flonase) 1 spray DAILY NASAL 06/02/17 09:00 06/29/17 08:59 06/06/17 09:45 Gabapentin (Neurontin) 100 mg DAILY ORAL 06/02/17 09:00 06/29/17 08:59 06/06/17 09:23 Gabapentin (Neurontin) 200 mg BEDTIME ORAL 06/01/17 21:00 06/29/17 20:59 06/05/17 21:19 Heparin Sodium (Porcine) (Heparin 5000 units/ml) 5,000 units EVERY 12 HOURS SUBQ 06/01/17 21:00 06/29/17 08:59 06/06/17 09:40 Hydralazine HCl (Apresoline) 50 mg EVERY 8 HOURS ORAL 06/01/17 22:00 06/29/17 05:59 06/06/17 05:19 Irbesartan (Avapro) 300 mg DAILY@1100 ORAL 06/06/17 11:00 07/06/17 10:59 Magnesium Oxide (Mag-Ox 400mg) 400 mg THREE TIMES A DAY ORAL 06/02/17 18:00 07/02/17 17:59 06/06/17 09:23 Metoprolol Succinate (Toprol XL) 100 mg DAILY ORAL 06/03/17 10:00 07/03/17 09:59 06/06/17 09:24 Multivitamins (Multivitamins) 1 tab DAILY ORAL 06/02/17 09:00 06/29/17 08:59 06/06/17 09:23 Oxycodone/ Acetaminophen (Percocet 5-325) 1 tab BID PRN ORAL Severe Pain (Pain Scale 7-10) 06/05/17 13:00 06/12/17 23:59 Primidone (Mysoline) 250 mg THREE TIMES A DAY ORAL 06/02/17 09:00 06/29/17 08:59 06/06/17 09:22 Promethazine HCl/ Codeine (Phenergan with Codeine) 5 ml Q4H PRN ORAL For Cough 06/02/17 21:45 07/02/17 21:44 06/02/17 22:10 Sitagliptin Phosphate (Januvia) 50 mg DAILY ORAL 06/02/17 09:00 06/29/17 08:59 06/06/17 09:22 Tramadol HCl (Ultram) 50 mg Q6H PRN ORAL Moderate Pain (Pain Scale 4-6) 06/05/17 12:33 06/10/17 23:59 Zinc Sulfate (Zinc Sulfate) 220 mg DAILY ORAL 06/02/17 09:00 06/29/17 08:59 06/06/17 09:22 Zolpidem Tartrate (Ambien) 5 mg QHS ORAL 06/05/17 21:00 06/10/17 23:59 06/05/17 21:19 DHARA HANCOCK Jun 06, 2017 11:09
[2017-06-06 12:00] VITALS: BP 160/73
[2017-06-06 15:02] VITALS: BP 160/73
[2017-06-06] MEDS: Promethazine/Codeine 5ml UD ORAL PRN (15:47)
--- NOTE | 2017-06-08 22:06 | Diagnostic Imaging Report ---
APPROVED REPORT CPT Code: 34013 Symptoms Comments: Pain Swelling Comments Note: Exam is technically difficult due to body habitus. RIGHT RIGHT LEG: Common femoral artery waveform analysis is within normal limits at rest. Color flow duplex sonography reveals a mild (40-49%) stenosis in the mid superficial femoral artery. The popliteal artery was patent. The tibioperoneal trunk was not also well visualized. The posterior tibial artery was not well visualized. Doppler dorsalis pedis artery waveform analysis is monophasic, consistent with moderate ischemia at rest. 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 Color flow duplex sonography reveals a mild (40-49%) stenosis in the proximal, mid and distal superficial femoral artery. The popliteal artery was not visualized. The tibioperoneal trunk was not also well visualized. Doppler posterior tibial artery and perineal artery waveform analysis is monophasic, consistent with moderate ischemia at rest.
--- NOTE | 2017-06-08 22:07 | Diagnostic Imaging Report ---
APPROVED REPORT CPT Code: 29624 Present Symptoms Comments: R/O DVT BILATERAL: Imaging reveals a patent deep venous system bilaterally. There is no evidence of thrombus within the femoral, popliteal or tibial segments. The greater saphenous veins are also within normal limits. Doppler indicates normal spontaneous flow within these segments.
--- NOTE | 2017-06-09 12:42 | Discharge Summary ---
Discharge Summary Hospital Course Date of Admission May 29, 2017 at 22:41 Date of Discharge Jun 06, 2017 at 16:00 Admitting Diagnosis pneumonia/chest pain HPI Josie Gloria is a 86 year old female who was admitted on May 29, 2017 at 22:41 for Pneumonia/Chest Pain Hospital Course dc summary # [id number] Discharge Medications New Medications: Furosemide* (Lasix*) 20 Mg Tablet 20 MG ORAL DAILY, #30 TAB Metoprolol Succinate* (Metoprolol Succinate*) 100 Mg Tab.er.24h 100 MG ORAL DAILY, #30 TAB Continued Medications: Acetaminophen (Mapap) 325 Mg Tablet 325 MG PO, TAB Amlodipine Besylate* (Amlodipine Besylate*) 10 Mg Tablet 10 MG ORAL DAILY, TAB Aripiprazole* (Abilify*) 2 Mg Tablet 2 MG ORAL DAILY, TAB Ascorbic Acid* (Vitamin C*) 500 Mg Tablet 500 MG ORAL DAILY, #30 TAB 0 Refills Aspirin* (Aspir 81*) 81 Mg Tablet. 81 MG ORAL DAILY, TAB Benzonatate* (Benzonatate*) 100 Mg Capsule 100 MG ORAL THREE TIMES A DAY, PERLE Docusate Sodium (Doc-Q-Lace) 100 Mg Capsule 100 MG ORAL BID, #30 CAP 0 Refills Duloxetine Hcl* (Cymbalta*) 60 Mg Capsule.dr 60 MG ORAL DAILY, CAP Ergocalciferol (Vitamin D2)* (Vitamin D*) 50,000 Unit Capsule 61003 UNIT ORAL ONCE A WEEK, CAP Fluticasone Propionate* (Fluticasone Propionate*) 16 Gm Seibert.susp 1 SPRAY NASAL DAILY, EA Gabapentin* (Gabapentin*) 100 Mg Capsule 200 MG ORAL BEDTIME, CAP Hydralazine Hcl* (Hydralazine Hcl*) 50 Mg Tablet 50 MG ORAL EVERY 8 HOURS, TAB Melatonin (Melatonin) 3 Mg Tablet 3 MG ORAL BEDTIME PRN for Insomnia, TAB Multivitamins* (Multivitamins*) 1 Each Tablet 1 TAB ORAL DAILY, TAB 0 Refills Olopatadine (Patanol) 5 Ml Drops 1 DROP OP, ML Primidone* (Mysoline*) 250 Mg Tablet 250 MG ORAL THREE TIMES A DAY, TAB Ranitidine Hcl* (Zantac*) 150 Mg Tablet 150 MG ORAL DAILY, #30 TAB 0 Refills Rosuvastatin Calcium* (Crestor*) 40 Mg Tablet 40 MG ORAL DAILY, TAB Sitagliptin* (Januvia*) 25 Mg Tablet 50 MG ORAL DAILY, TAB Telmisartan (Micardis) 40 Mg Tablet 40 MG ORAL DAILY, TAB Tramadol Hcl* (Ultram*) 50 Mg Tablet 50 MG ORAL Q6H PRN for For Pain, #30 TAB 0 Refills Zinc Sulfate (Zinc Sulfate*) 220 Mg Capsule 220 MG ORAL DAILY, CAP 0 Refills Zolpidem Tartrate* (Zolpidem Tartrate*) 5 Mg Tablet 5 MG ORAL BEDTIME PRN for Insomnia, TAB 0 Refills Discontinued Medications: Furosemide* (Lasix*) 20 Mg Tablet 20 MG ORAL TWICE A DAY, TAB Gabapentin* (Gabapentin*) 100 Mg Capsule 100 MG ORAL DAILY, CAP Hydroxyzine Hcl (Hydroxyzine Hcl) 50 Mg Tablet 50 MG PO, TAB Metoprolol Succinate* (Metoprolol Succinate*) 25 Mg Tab.er.24h 25 MG ORAL DAILY, TAB Neomy Sulf/Polymyxin B Sulfate (Neomy-Polymyxin B 40 Mg/Ml Amp) 1 Ml Ampul 1 ML IR, AMP Potassium Chloride (Potassium Chloride) 20 Meq Packet 20 MEQ ORAL DAILY, #30 PKT 0 Refills Discharge Condition Upon Discharge: stable Discharge Disposition Patient was discharged to SNF/Subacute Facility(03) Discharge Diagnoses: Fox (Britni)Adilia NP Jun 09, 2017 12:42
--- NOTE | 2017-06-10 02:45 | Discharge Summary 2 SIG ---
DATE OF ADMISSION: 05/29/2017 DATE OF DISCHARGE: 06/06/2017 REASON FOR ADMISSION: 86-year-old female with history of diabetes, hypertension, hyperlipidemia, coronary artery disease, status post stent and obesity, was brought from the assisted living with complaint of chest pain and cough. She reported intermittent pain for few days. She rated the pain as 10/10, left-sided, and pleuritic. The cough was fairly severe and she was getting short of breath with cough. Cough was dry and nonproductive. Denied use of inhaler. No history of asthma or COPD. Accu-Chek -234. Vital signs were stable except blood pressure which was elevated -190/72. Pulse oximetry was 97% on room air. No leukocytosis. Mild anemia. Hemoglobin -11.4 and hematocrit -34.7. Electrolytes were overall stable. Lactic acid-1.6. Troponin negative. ProBNP - 1685. Urinalysis with no evidence of UTI. EKG showed normal sinus rhythm, no acute ischemic changes. Chest x-ray revealed possible right lower lobe infiltrate, but no effusion, no pneumothorax. Influenza screen test was negative. The patient was admitted with diagnoses of chest pain, rule out acute coronary syndrome, bronchitis, hypertension, obesity, diabetes mellitus, aspiration risk, and bilateral lower extremity cellulitis. HOSPITAL COURSE: The patient admitted. Cardiology, Podiatry, Pulmonology, ID, and Nephrology consults were requested. The patient initially was on telemetry floor. Serial troponin were negative. [place] closely followed. EKG revealed no acute ischemic changes. The patient was ruled out for acute VT with serial negative troponin and no ischemic changes on EKG. Per Cardiology, chest pain was likely pleuritic secondary to acute bronchitis. Echocardiogram revealed preserved ejection fraction of 70% to 75% and right ventricular systolic pressure of 31 as well as moderate aortic stenosis, diastolic dysfunction grade 2. Supplemental oxygen provided as needed to keep pulse oximetry above 92%. Pulmonary toilet was administered as needed. The patient was on empiric antibiotic. ID followed. Sputum culture, blood culture, and influenza screen were all negative. The patient received course of antibiotic for bilateral leg cellulitis as per ID management. Per Cardiology, peripheral edema and fluid overload were due to diastolic dysfunction and diastolic heart failure. The patient was on gentle diuresis. Cardiorenal parameters and volumes were closely monitored. Followup chest x-ray was stable. The patient initially presented with hypertensive urgency. Blood pressure was managed as per Cardiology, and was controlled prior to discharge. Additional magnesium given. Strict aspiration and reflux precautions were maintained. Diet was advanced as tolerated. DVT prophylaxis provided. Bowel regimen instituted. Pain management provided. Electric [employer]er had seen and evaluated the patient. The patient complained of pain in the left ankle. Left ankle x-ray revealed no acute fracture. Vascular surgeon subsequently had seen and evaluated the patient. Venous and Arterial Duplex were done and reviewed by vascular surgeon . According to vascular surgeon, the patient had mixed venous and arterial insufficiency with no distal ulceration. Vascular surgeon recommended conservative treatment due to DNR/DNI status: continue compression therapy, moisturizing cream with decubitus precautions, physical and occupational therapy. The patient did not warrant any immediate vascular invasive procedure. The patient initially came from assisted living. The patient was working with physical and occupational therapists. However, the patient did not qualify to return back to assisted living, and transfer was arranged to [facility]. Family agreed with the transfer. The patient was subsequently discharged. FINAL DIAGNOSES: 1. Pleuritic chest pain. 2. Acute bronchitis. 3. Aspiration risk. 4. Obesity. 5. Diabetes mellitus. 6. Hypertensive urgency, resolved. 7. Peripheral vascular disease with mixed venous and arterial insufficiency [id number], with no distal ulceration. 8. Moderate aortic stenosis. 9. CHF with diastolic dysfunction. 10. Coronary artery disease with history of PTCA. 11. Bilateral leg cellulitis. 12. Fluid overload and peripheral edema due to diastolic dysfunction and diastolic CHF. DISCHARGE MEDICATIONS: See medication reconciliation list. DISCHARGE INSTRUCTIONS: The patient was discharged to long-term facility. Follow up with medical doctor at the facility. Benjie Bernal D.O. [facility] N.P. DR: Massimo JOB#: [id number] CC: KYLE
[2017-07-07] MEDS ORDERED: LIPITOR20 MG ORAL (15:27)
[2017-07-07] MEDS ORDERED: CARDIZEM CD180 MG ORAL (15:28)
[2017-07-07] MEDS ORDERED: DILTIAZEM H5 MG/1 ML IV (15:30)
[2017-07-07] MEDS ORDERED: ENALAPRIL1.25 MG/ML IV (15:32)
[2017-07-07] MEDS ORDERED: HEPARIN2000 UNIT/ SUBQ (15:35)
[2017-07-07] MEDS ORDERED: ALBUTEROL2.5 MG/3 M INH (15:37)
[2017-07-07] MEDS ORDERED: KETOROLAC IV (15:40)
[2017-07-07] MEDS ORDERED: MORPHINE SU4 MG/1 ML IVP (15:45)
[2017-07-07] MEDS ORDERED: NITROSTAT0.4 M1 SL (15:46)
[2017-07-07] MEDS ORDERED: ZOFRAN4 M1 IVP (15:47)
[2017-07-07] MEDS ORDERED: MIRALAX17 G2 ORAL (15:48)
[2017-07-07] MEDS ORDERED: RESTORIL15 MG ORAL (15:50)
== END 2017-06-06 16:00 | DRG 202 ==
LOC: EDBD 21:13 → EMR 21:20 → 2E 22:41 → EDBD 22:41 → EDBEDREQ 23:05 → 2E 05-30 10:16 → SDSOVERFLO 06-01 14:22 → 2E 06-01 14:37 → 4W 06-01 18:02
DX: J20.9 Acute bronchitis, unspecified (principal); I50.31 Acute diastolic (congestive) heart failure; L03.115 Cellulitis of right lower limb; Z68.41 Body mass index [BMI] 40.0-44.9, adult; L03.116 Cellulitis of left lower limb; E11.9 Type 2 diabetes mellitus without complications; E66.01 Morbid (severe) obesity due to excess calories; I11.0 Hypertensive heart disease with heart failure; R07.81 Pleurodynia; I73.9 Peripheral vascular disease, unspecified; I25.10 Atherosclerotic heart disease of native coronary artery without angina pectoris; Z95.5 Presence of coronary angioplasty implant and graft; Z66 Do not resuscitate; Z88.0 Allergy status to penicillin; Z88.2 Allergy status to sulfonamides; E78.5 Hyperlipidemia, unspecified; Z91.81 History of falling; J06.9 Acute upper respiratory infection, unspecified; I87.2 Venous insufficiency (chronic) (peripheral); I87.8 Other specified disorders of veins; I35.0 Nonrheumatic aortic (valve) stenosis; I10 Essential (primary) hypertension; I16.0 Hypertensive urgency; Z23 Encounter for immunization
CPT/HCPCS: 36415; 71045; 74230; 80048; 80053; 80061; 80202; 81003; 82043; 82044; 82550; 82570; 82962; 83605; 83735; 83880; 84100; 84300; 84484; 85025; 85610; 85651; 85730; 86710; 87040; 87070; 87081; 87205; 90630; 90732; 93005; 93306; 93925; 93970; 94640; 94664; 94760; 99285; J2405; J7620; J8499